=== PATIENT | male | born 1965 | race African-American/Black ===

== ENCOUNTER 2017-10-27 10:17 | Inpatient (IN) ==
[2017-10-27] MEDS ORDERED: SODIUM CHLORIDE 0.9% 1,000 ML IV STA (10:38)
[2017-10-27] MEDS ORDERED: MEROPENEM 1,000 MG in SODIUM CHLORIDE 0.9% 100 ML IV STA (10:38)
[2017-10-27] MEDS ORDERED: MEROPENEM 1,000 MG VIAL IV ONE (11:29)
[2017-10-27 11:32] LABS: Basophils # 0.1 10*3/uL (0.0-0.2); Basophils % 1.2 % (0.0-0.8); Eosinophils # 1.1 10*3/uL (0.0-0.87); Eosinophils % 9.7 % (0.00-10.9); Hematocrit 37.1 VOL% (42.0-52.0); Hemoglobin 12.5 GM/DL (14.0-18.0); Immature Granulocytes % 1.7 %; Immature Granulocytes Absolute 0.19 #; Lymphocytes # 2.8 10*3/uL (1.4-4.0); Lymphocytes % 24.7 % (21.2-54.2); Mean Corpuscular HGB Conc 33.7 GM/DL (32-36); Mean Corpuscular Hemoglobin 28 PG (27-34); Mean Corpuscular Volume 83.6 FL (87-102); Mean Platelet Volume 8.8 FL (9.6-12.0); Monocytes % 8.6 % (1.7-12.7); Neutrophils # 6.1 10*3/uL (1.4-7.4); Neutrophils % 54.1 % (38.7-73.9); Platelet Count 490 T/CUMM (130-400); Red Blood Count 4.44 MC/CUMM (3.8-5.5); Red Cell Distribution Width 11.5 % (9.3-17.3); White Blood Count 11.3 T/CUMM (4-12)
[2017-10-27 11:42] LABS: INR 0.9; PT Patient Result 9.3 SECS; Partial Thromboplastin Time 25.9 SECS (0-40)
[2017-10-27 11:50] LABS: Alanine Aminotransferase 26 U/L (16-61); Albumin 2.6 G/DL (3.4-5.0); Alkaline Phosphatase 155 U/L (45-117); Aspartate Amino Transferase 16 U/L (0-37); Bilirubin,Total < 0.39 MG/DL (0.2-1.0); Blood Urea Nitrogen 23 MG/DL (7-18); Calcium 9.7 MG/DL (8.5-10.1); Glucose 343 MG/DL (74-106); Osmolality,Calculated 279.7 MOS/KG (273-304); Potassium 4.5 MMOL/L (3.5-5.1); Sodium 131 MMOL/L (136-145); Total Protein 8.8 G/DL (6.4-8.3)
[2017-10-27 11:54] LABS: Lactic Acid 1.2 MMOL/L (0.4-2.0)
[2017-10-27] MEDS: VANCOMYCIN INJ 1,750 MG in SODIUM CHLORIDE 0.9% 500 ML IV SCH ×2 (12:18→22:44)
[2017-10-27] MEDS ORDERED: ACETAMINOPHEN 325 MG TABLET PO PRN (12:31)
[2017-10-27] MEDS ORDERED: ONDANSETRON 4 MG/2 ML VIAL IV PRN (12:31)
[2017-10-27] MEDS ORDERED: hydrALAZINE 20 MG/1 ML VIAL IV PRN (12:35)
[2017-10-27 13:01] LABS: Apearance,Urine Clear (Clear); Ketones,Urine Negative (Negative); Nitrite,Urine Negative (Negative); Urine Color Yellow (Yellow); Urine Specific Gravity 1.005 (1.001-1.035)
[2017-10-27 13:02] LABS: Bilirubin,Urine Negative (Negative); Blood, Urine Moderate mg/dL (Negative); Glucose,Urine (UA) 150 mg/dL (Negative); Protein,Urine >=500 MG/DL; Urine Urobilinogen 0.2 EU/DL (0.2-1.0)
[2017-10-27 13:09] LABS: Squamous Epithelial Cell,Urine Few /HPF (0-10); WBC,Urine 0-5 /HPF (0-6)
[2017-10-27] MEDS: SODIUM CHLORIDE 0.9% 1,000 ML IV SCH (15:08)
[2017-10-27] MEDS ORDERED: GLUCAGON 1 MG VIAL IM PRN (15:46)
[2017-10-27] MEDS ORDERED: DEXTROSE 50% 25 GM/50 ML VIAL IV PRN (15:46)
[2017-10-27] MEDS ORDERED: traMADol 50 MG TABLET PO PRN (17:08)
[2017-10-27] MEDS: INSULIN LISPRO 100 UNIT/ML SUBCUT SCH (17:15)
[2017-10-27] MEDS: GABAPENTIN 400 MG CAPSULE PO SCH (22:11)
[2017-10-27] MEDS: MEROPENEM 1,000 MG in SYRINGE 1 EACH IV SCH (22:12)
[2017-10-28] MEDS: SODIUM CHLORIDE 0.9% 1,000 ML IV SCH ×3 (06:16→14:31)
[2017-10-28 06:57] LABS: Basophils # 0.1 10*3/uL (0.0-0.2); Basophils % 0.8 % (0.0-0.8); Eosinophils # 1.1 10*3/uL (0.0-0.87); Eosinophils % 10.8 % (0.00-10.9); Hematocrit 32.2 VOL% (42.0-52.0); Hemoglobin 10.7 GM/DL (14.0-18.0); Immature Granulocytes % 1.5 %; Immature Granulocytes Absolute 0.15 #; Lymphocytes # 2.7 10*3/uL (1.4-4.0); Lymphocytes % 27.4 % (21.2-54.2); Mean Corpuscular HGB Conc 33.2 GM/DL (32-36); Mean Corpuscular Hemoglobin 28 PG (27-34); Mean Corpuscular Volume 83.9 FL (87-102); Mean Platelet Volume 8.7 FL (9.6-12.0); Monocytes % 10.2 % (1.7-12.7); Neutrophils # 4.8 10*3/uL (1.4-7.4); Neutrophils % 49.3 % (38.7-73.9); Platelet Count 454 T/CUMM (130-400); Red Blood Count 3.84 MC/CUMM (3.8-5.5); Red Cell Distribution Width 11.7 % (9.3-17.3); White Blood Count 9.7 T/CUMM (4-12)
[2017-10-28 07:32] LABS: Calcium 8.6 MG/DL (8.5-10.1); Osmolality,Calculated 287.1 MOS/KG (273-304); Potassium 4.6 MMOL/L (3.5-5.1)
[2017-10-28] MEDS: INSULIN LISPRO 100 UNIT/ML SUBCUT SCH ×2 (07:45→16:46)
[2017-10-28] MEDS ORDERED: INSULIN LISPRO 100 UNIT/ML SUBCUT ONE ×2 (08:13→08:33)
[2017-10-28] MEDS: PANTOPRAZOLE 40 MG TABLET PO SCH (08:21)
[2017-10-28] MEDS: GABAPENTIN 400 MG CAPSULE PO SCH ×3 (08:21→21:48)
[2017-10-28] MEDS ORDERED: MIDAZOLAM 2 MG/2 ML VIAL ONE (09:39)
[2017-10-28] MEDS ORDERED: PROPOFOL 200 MG/20 ML VIAL IV ONE (09:39)
[2017-10-28] MEDS ORDERED: fentaNYL 100 MCG/2 ML VIAL ONE (09:39)
[2017-10-28] MEDS ORDERED: INSULIN REGULAR 100 UNIT/ML IV ONE (09:41)
[2017-10-28] MEDS ORDERED: INSULIN REGULAR 100 UNIT/ML ONE (09:50)
[2017-10-28] MEDS: MEROPENEM 1,000 MG in SYRINGE 1 EACH IV SCH ×2 (11:01→23:15)
[2017-10-28] MEDS: VANCOMYCIN INJ 1,750 MG in SODIUM CHLORIDE 0.9% 500 ML IV SCH (11:01)
[2017-10-28] MEDS ORDERED: MORPHINE 2 MG/1 ML SYRINGE IV PRN (11:22)
[2017-10-29] MEDS: INSULIN REGULAR 100 UNIT/ML SUBCUT SCH ×5 (00:47→22:02)
[2017-10-29] MEDS: VANCOMYCIN INJ 1,750 MG in SODIUM CHLORIDE 0.9% 500 ML IV SCH ×3 (08:02→14:35)
[2017-10-29] MEDS: SODIUM CHLORIDE 0.9% 1,000 ML IV SCH ×2 (08:02→14:40)
[2017-10-29] MEDS: GABAPENTIN 400 MG CAPSULE PO SCH ×3 (09:05→22:01)
[2017-10-29] MEDS: PANTOPRAZOLE 40 MG TABLET PO SCH (09:05)
[2017-10-29] MEDS ORDERED: SKIN HEALING OINT (AQUAPHOR) 50 GM TUBE TOP PRN (09:42)
[2017-10-29] MEDS ORDERED: CHLORHEXIDINE 4% SOLN 118 ML BOTTLE TOP ONE (09:48)
[2017-10-29] MEDS: BACITRACIN OINT 0.9 GM PACK TOP SCH (10:26)
[2017-10-29] MEDS: MEROPENEM 1,000 MG in SYRINGE 1 EACH IV SCH ×2 (11:47→14:35)
[2017-10-29] MEDS: INSULIN GLARGINE 100 UNIT/ML SUBCUT SCH (13:12)
[2017-10-29] MEDS: sitaGLIPtin 25 MG TABLET PO SCH (14:28)
[2017-10-29] MEDS ORDERED: glipiZIDE 5 MG TABLET PO SCH (16:30)
[2017-10-29] MEDS ORDERED: INSULIN GLARGINE 100 UNIT/ML SUBCUT SCH (21:00)
[2017-10-30] MEDS: SODIUM CHLORIDE 0.9% 1,000 ML IV SCH ×3 (01:20→20:36)
[2017-10-30] MEDS: MEROPENEM 1,000 MG in SYRINGE 1 EACH IV SCH ×2 (02:56→13:59)
[2017-10-30] MEDS: VANCOMYCIN INJ 1,750 MG in SODIUM CHLORIDE 0.9% 500 ML IV SCH ×2 (04:10→13:59)
[2017-10-30] MEDS: INSULIN REGULAR 100 UNIT/ML SUBCUT SCH ×4 (08:40→20:37)
[2017-10-30] MEDS: INSULIN GLARGINE 100 UNIT/ML SUBCUT SCH ×2 (08:40→20:37)
[2017-10-30] MEDS: PANTOPRAZOLE 40 MG TABLET PO SCH (08:58)
[2017-10-30] MEDS: GABAPENTIN 400 MG CAPSULE PO SCH ×3 (08:58→20:36)
[2017-10-30] MEDS: sitaGLIPtin 25 MG TABLET PO SCH (08:58)
[2017-10-30] MEDS: BACITRACIN OINT 0.9 GM PACK TOP SCH ×2 (10:00→12:38)
[2017-10-30] MEDS ORDERED: NIFEdipine 10 MG CAPSULE PO PRN (15:19)
[2017-10-30] MEDS: amLODIPine 10 MG TABLET PO SCH (16:34)
[2017-10-30] MEDS: VALSARTAN 80 MG TABLET PO SCH (16:34)
[2017-10-31] MEDS: MEROPENEM 1,000 MG in SYRINGE 1 EACH IV SCH ×2 (02:15→15:25)
[2017-10-31] MEDS: VANCOMYCIN INJ 1,750 MG in SODIUM CHLORIDE 0.9% 500 ML IV SCH ×2 (02:18→15:27)
[2017-10-31 05:24] LABS: Basophils # 0.1 10*3/uL (0.0-0.2); Basophils % 0.6 % (0.0-0.8); Eosinophils % 8.8 % (0.00-10.9); Hemoglobin 10.3 GM/DL (14.0-18.0); Immature Granulocytes % 1.8 %; Immature Granulocytes Absolute 0.21 #; Lymphocytes # 3.6 10*3/uL (1.4-4.0); Lymphocytes % 30.7 % (21.2-54.2); Mean Corpuscular HGB Conc 33.2 GM/DL (32-36); Mean Corpuscular Hemoglobin 28 PG (27-34); Mean Corpuscular Volume 84.7 FL (87-102); Mean Platelet Volume 8.8 FL (9.6-12.0); Monocytes # 1.1 10*3/uL (0.11-0.8); Monocytes % 9.7 % (1.7-12.7); Neutrophils # 5.7 10*3/uL (1.4-7.4); Neutrophils % 48.4 % (38.7-73.9); Platelet Count 453 T/CUMM (130-400); Red Blood Count 3.66 MC/CUMM (3.8-5.5); Red Cell Distribution Width 11.8 % (9.3-17.3); White Blood Count 11.7 T/CUMM (4-12)
[2017-10-31 05:59] LABS: Calcium 8.8 MG/DL (8.5-10.1); Osmolality,Calculated 284.8 MOS/KG (273-304); Potassium 4.6 MMOL/L (3.5-5.1)
[2017-10-31 06:00] LABS: Calcium 8.3 MG/DL (8.5-10.1); Magnesium 1.9 MG/DL (1.8-2.4); Osmolality,Calculated 286.7 MOS/KG (273-304); Potassium 4.6 MMOL/L (3.5-5.1)
[2017-10-31] MEDS: GABAPENTIN 400 MG CAPSULE PO SCH ×3 (08:59→20:29)
[2017-10-31] MEDS: PANTOPRAZOLE 40 MG TABLET PO SCH (08:59)
[2017-10-31] MEDS: VALSARTAN 80 MG TABLET PO SCH (08:59)
[2017-10-31] MEDS: amLODIPine 10 MG TABLET PO SCH (08:59)
[2017-10-31] MEDS: sitaGLIPtin 100 MG TABLET PO SCH (08:59)
[2017-10-31] MEDS: INSULIN GLARGINE 100 UNIT/ML SUBCUT SCH ×2 (09:00→20:30)
[2017-10-31] MEDS: INSULIN REGULAR 100 UNIT/ML SUBCUT SCH ×4 (09:00→20:30)
[2017-10-31] MEDS ORDERED: MAGNESIUM SULF RIDER 2 GM in PREMIX 1 EACH IV ONE (09:03)
[2017-10-31] MEDS: BACITRACIN OINT 0.9 GM PACK TOP SCH ×2 (09:03→15:31)
[2017-10-31] MEDS: LOPERAMIDE 2 MG CAPSULE PO PRN ×3 (11:23→19:31)
[2017-11-01] MEDS: MEROPENEM 1,000 MG in SYRINGE 1 EACH IV SCH ×2 (02:31→14:51)
[2017-11-01] MEDS: VANCOMYCIN INJ 1,750 MG in SODIUM CHLORIDE 0.9% 500 ML IV SCH ×2 (02:35→15:28)
[2017-11-01] MEDS: INSULIN REGULAR 100 UNIT/ML SUBCUT SCH ×4 (07:25→21:12)
[2017-11-01] MEDS: INSULIN GLARGINE 100 UNIT/ML SUBCUT SCH ×2 (09:30→21:12)
[2017-11-01] MEDS: GABAPENTIN 400 MG CAPSULE PO SCH ×3 (09:31→21:11)
[2017-11-01] MEDS: PANTOPRAZOLE 40 MG TABLET PO SCH (09:31)
[2017-11-01] MEDS: sitaGLIPtin 100 MG TABLET PO SCH (09:31)
[2017-11-01] MEDS: amLODIPine 10 MG TABLET PO SCH (09:35)
[2017-11-01] MEDS: VALSARTAN 80 MG TABLET PO SCH (09:35)
[2017-11-01] MEDS: BACITRACIN OINT 0.9 GM PACK TOP SCH ×2 (10:30→10:56)
[2017-11-01] MEDS: LOPERAMIDE 2 MG CAPSULE PO PRN ×2 (17:38→21:12)
[2017-11-02] MEDS: MEROPENEM 1,000 MG in SYRINGE 1 EACH IV SCH ×2 (01:33→14:56)
[2017-11-02 06:47] LABS: Calcium 8.4 MG/DL (8.5-10.1); Osmolality,Calculated 288.7 MOS/KG (273-304); Potassium 4.7 MMOL/L (3.5-5.1)
[2017-11-02] MEDS ORDERED: VANCOMYCIN INJ 1,750 MG in SODIUM CHLORIDE 0.9% 500 ML IV SCH (09:00)
[2017-11-02] MEDS: INSULIN REGULAR 100 UNIT/ML SUBCUT SCH ×3 (09:27→17:25)
[2017-11-02] MEDS: BACITRACIN OINT 0.9 GM PACK TOP SCH ×2 (09:28→09:29)
[2017-11-02] MEDS: amLODIPine 10 MG TABLET PO SCH (09:29)
[2017-11-02] MEDS: INSULIN GLARGINE 100 UNIT/ML SUBCUT SCH (09:29)
[2017-11-02] MEDS: VALSARTAN 80 MG TABLET PO SCH (09:29)
[2017-11-02] MEDS: GABAPENTIN 400 MG CAPSULE PO SCH ×2 (09:29→14:56)
[2017-11-02] MEDS: PANTOPRAZOLE 40 MG TABLET PO SCH (09:29)
[2017-11-02] MEDS: sitaGLIPtin 100 MG TABLET PO SCH (09:29)
[2017-11-02 17:09] VITALS: BP 116/66
[2017-11-03] MEDS ORDERED: DALBAVANCIN 1,500 MG in DEXTROSE 5% 500 ML IV ONE (10:48)
== END 2017-11-02 19:30 | disposition home or self-care (01) | DRG 264 ==
LOC: N.ED 10:17 → N.EDINP 11:38 → SUATTDRO 11:38 → N.EDINP 13:30 → N.5E 14:27
PROVIDERS: ADMIT Internal Medicine; ATTEND Internal Medicine

== ENCOUNTER 2018-01-16 10:17 | Observation (INO) ==
[2018-01-16] MEDS ORDERED: SODIUM CHLORIDE 0.9% 2,000 ML IV STA (10:30)
[2018-01-16 10:56] LABS: Basophils # 0.1 10*3/uL (0.0-0.2); Basophils % 0.2 % (0.0-0.8); Eosinophils # 0.4 10*3/uL (0.0-0.87); Eosinophils % 1.8 % (0.00-10.9); Hematocrit 35.9 VOL% (42.0-52.0); Hemoglobin 11.9 GM/DL (14.0-18.0); Immature Granulocytes % 0.5 %; Lymphocytes # 1.6 10*3/uL (1.4-4.0); Lymphocytes % 7.5 % (21.2-54.2); Mean Corpuscular HGB Conc 33.1 GM/DL (32-36); Mean Corpuscular Hemoglobin 28 PG (27-34); Mean Corpuscular Volume 85.7 FL (87-102); Monocytes # 2.2 10*3/uL (0.11-0.8); Monocytes % 9.9 % (1.7-12.7); Neutrophils # 17.6 10*3/uL (1.4-7.4); Neutrophils % 80.1 % (38.7-73.9); Platelet Count 363 T/CUMM (130-400); Red Blood Count 4.19 MC/CUMM (3.8-5.5); Red Cell Distribution Width 13.2 % (9.3-17.3)
[2018-01-16 11:34] LABS: Alanine Aminotransferase 30 U/L (16-61); Alkaline Phosphatase 171 U/L (45-117); Aspartate Amino Transferase 17 U/L (0-37); Bilirubin,Total < 0.39 MG/DL (0.2-1.0); Blood Urea Nitrogen 28 MG/DL (7-18); Calcium 8.5 MG/DL (8.5-10.1); Glucose 167 MG/DL (74-106); Osmolality,Calculated 290.3 MOS/KG (273-304); Potassium 4.2 MMOL/L (3.5-5.1); Sodium 141 MMOL/L (136-145); Total Protein 7.8 G/DL (6.4-8.3)
[2018-01-16 11:37] LABS: Band Neutrophils 5 % (0-10); Eosinophils 3 % (0-10); Giant Platelets Few; Hypochromasia 1+; Lymphocytes 7 % (20-55); Ovalocytes Slight; Platelet Estimate Adequate; Segmented Neutrophils 77 % (50-85); Total Cells Counted 100
[2018-01-16 11:45] LABS: ABG Base Excess -8.1 MMOL/L (-2.5-2.5); ABG HCO3 17.9 MMOL/L (20-26); ABG Oxygen Saturation 99.2 % (95-100); ABG PCO2 33.7 MM HG (35-48); ABG PH 7.317 (7.35-7.45); ABG TCO2 15.7 MMOL/L (23-27); Allen Test Positive
[2018-01-16 12:18] LABS: Barbiturates Screen,Urine Negative (Negative); Benzodiazepines Screen,Urine Negative (Negative); Cannabinoid Screen,Urine Negative (Negative); Opiate Screen,Urine Positive (Negative); Phencyclidine Screen,Urine Negative (Negative)
[2018-01-16 12:21] LABS: Apearance,Urine Clear (Clear); Bilirubin,Urine Negative (Negative); Blood, Urine Trace mg/dL (Negative); Glucose,Urine (UA) Negative (Negative); Ketones,Urine Negative (Negative); Nitrite,Urine Negative (Negative); Protein,Urine 100 MG/DL; RBC,Urine 0-1 /HPF (0-4); Urine Color Straw (Yellow); Urine Specific Gravity 1.015 (1.001-1.035); Urine Urobilinogen 0.2 EU/DL (0.2-1.0)
[2018-01-16 12:22] LABS: Squamous Epithelial Cell,Urine Occasional /HPF (0-10)
[2018-01-16] MEDS ORDERED: GLUCAGON 1 MG VIAL IM PRN (15:10)
[2018-01-16] MEDS ORDERED: DEXTROSE 50% 25 GM/50 ML VIAL IV PRN (15:10)
[2018-01-16] MEDS ORDERED: ACETAMINOPHEN 325 MG TABLET PO PRN (15:21)
[2018-01-16] MEDS ORDERED: ONDANSETRON 4 MG/2 ML VIAL IV PRN (15:21)
[2018-01-16] MEDS: INSULIN LISPRO 100 UNIT/ML SUBCUT SCH ×2 (15:34→20:58)
[2018-01-16] MEDS: SODIUM CHLORIDE 0.9% 1,000 ML IV SCH (16:18)
[2018-01-16] MEDS ORDERED: ENOXAPARIN 40 MG/0.4 ML SYRINGE SUBCUT SCH (21:00)
[2018-01-17] MEDS: SODIUM CHLORIDE 0.9% 1,000 ML IV SCH ×3 (01:28→07:50)
[2018-01-17 07:00] LABS: Basophils # 0.1 10*3/uL (0.0-0.2); Basophils % 0.5 % (0.0-0.8); Eosinophils # 0.7 10*3/uL (0.0-0.87); Eosinophils % 6.6 % (0.00-10.9); Hematocrit 31.3 VOL% (42.0-52.0); Hemoglobin 10.3 GM/DL (14.0-18.0); Immature Granulocytes % 0.5 %; Immature Granulocytes Absolute 0.05 #; Lymphocytes # 3.7 10*3/uL (1.4-4.0); Lymphocytes % 33.9 % (21.2-54.2); Mean Corpuscular HGB Conc 32.9 GM/DL (32-36); Mean Corpuscular Hemoglobin 28 PG (27-34); Mean Corpuscular Volume 85.5 FL (87-102); Mean Platelet Volume 9.5 FL (9.6-12.0); Monocytes # 1.1 10*3/uL (0.11-0.8); Monocytes % 10.1 % (1.7-12.7); Neutrophils # 5.3 10*3/uL (1.4-7.4); Neutrophils % 48.4 % (38.7-73.9); Platelet Count 360 T/CUMM (130-400); Red Blood Count 3.66 MC/CUMM (3.8-5.5); Red Cell Distribution Width 13.3 % (9.3-17.3); White Blood Count 10.9 T/CUMM (4-12)
[2018-01-17 07:32] LABS: Calcium 7.9 MG/DL (8.5-10.1); Osmolality,Calculated 281.4 MOS/KG (273-304); Potassium 4.1 MMOL/L (3.5-5.1); Thyroid Stimulating Hormone 1.29 uIU/ml (0.358-3.74)
[2018-01-17] MEDS: INSULIN LISPRO 100 UNIT/ML SUBCUT SCH (07:49)
[2018-01-17] MEDS ORDERED: amLODIPine 10 MG TABLET PO SCH (09:00)
[2018-01-17] MEDS ORDERED: PANTOPRAZOLE 40 MG TABLET PO SCH (09:00)
[2018-01-17] MEDS ORDERED: VALSARTAN 80 MG TABLET PO SCH (09:00)
[2018-01-17] MEDS ORDERED: hydroCHLOROthiazide 12.5 MG CAPSULE PO SCH (09:00)
[2018-01-17 09:41] VITALS: BP 134/97
== END 2018-01-17 11:08 | disposition home or self-care (01) ==
LOC: EDBD → EDUNIT# → N.ED 10:17 → N.EDINP 10:17 → N.5E 14:45
PROVIDERS: ADMIT Internal Medicine; ATTEND Internal Medicine

== ENCOUNTER 2018-05-03 11:39 | Observation (INO) ==
[2018-05-03 13:23] LABS: Basophils # 0.1 10*3/uL (0.0-0.2); Basophils % 0.5 % (0.0-0.8); Eosinophils # 0.4 10*3/uL (0.0-0.87); Eosinophils % 3.4 % (0.00-10.9); Hematocrit 34.1 VOL% (42.0-52.0); Hemoglobin 11.7 GM/DL (14.0-18.0); Immature Granulocytes % 0.5 %; Immature Granulocytes Absolute 0.07 #; Lymphocytes # 2.3 10*3/uL (1.4-4.0); Lymphocytes % 17.8 % (21.2-54.2); Mean Corpuscular HGB Conc 34.3 GM/DL (32-36); Mean Corpuscular Hemoglobin 28 PG (27-34); Mean Corpuscular Volume 82.8 FL (87-102); Mean Platelet Volume 9.6 FL (9.6-12.0); Monocytes # 1.2 10*3/uL (0.11-0.8); Monocytes % 9.2 % (1.7-12.7); Neutrophils # 8.8 10*3/uL (1.4-7.4); Neutrophils % 68.6 % (38.7-73.9); Platelet Count 328 T/CUMM (130-400); Red Blood Count 4.12 MC/CUMM (3.8-5.5); Red Cell Distribution Width 11.7 % (9.3-17.3); White Blood Count 12.8 T/CUMM (4-12)
[2018-05-03 13:38] LABS: Alanine Aminotransferase 30 U/L (16-61); Albumin 2.7 G/DL (3.4-5.0); Alkaline Phosphatase 164 U/L (45-117); Aspartate Amino Transferase 12 U/L (0-37); Bilirubin,Total < 0.39 MG/DL (0.2-1.0); Blood Urea Nitrogen 30 MG/DL (7-18); Calcium 8.8 MG/DL (8.5-10.1); Osmolality,Calculated 286.4 MOS/KG (273-304); Potassium 4.8 MMOL/L (3.5-5.1); Sodium 126 MMOL/L (136-145); Total Protein 7.3 G/DL (6.4-8.3)
[2018-05-03 13:40] LABS: Glucose 598 MG/DL (74-106)
[2018-05-03] MEDS ORDERED: DIPH/TET/ACEL PERT BOOSTER VACCINE 0.5 ML VIAL IM ONE (13:43)
[2018-05-03] MEDS ORDERED: CEFTAROLINE 600 MG in SODIUM CHLORIDE 0.9% 100 ML IV STA (13:43)
[2018-05-03] MEDS ORDERED: INSULIN REGULAR 100 UNIT/ML SUBCUT STA (15:00)
[2018-05-03] MEDS ORDERED: GLUCAGON 1 MG VIAL IM PRN (15:05)
[2018-05-03] MEDS ORDERED: diphenhydrAMINE CAP 25 MG CAPSULE PO PRN (15:05)
[2018-05-03] MEDS ORDERED: DOCUSATE SODIUM 100 MG CAPSULE PO PRN (15:05)
[2018-05-03] MEDS ORDERED: ACETAMINOPHEN 325 MG TABLET PO PRN (15:05)
[2018-05-03] MEDS ORDERED: DEXTROSE 50% 25 GM/50 ML VIAL IV PRN (15:05)
[2018-05-03] MEDS ORDERED: ONDANSETRON 4 MG/2 ML VIAL IV PRN (15:05)
[2018-05-03] MEDS ORDERED: SODIUM CHLORIDE 0.9% 1,000 ML IV ONE (15:19)
[2018-05-03] MEDS: PANTOPRAZOLE 40 MG TABLET PO SCH (16:15)
[2018-05-03] MEDS: SODIUM CHLORIDE 0.9% 1,000 ML IV SCH ×2 (17:00→19:50)
[2018-05-03] MEDS: INSULIN REGULAR 100 UNIT/ML SUBCUT SCH (18:32)
[2018-05-03] MEDS: hydrALAZINE 25 MG TABLET PO SCH (21:40)
[2018-05-03] MEDS: GABAPENTIN 400 MG CAPSULE PO SCH (21:41)
[2018-05-03] MEDS ORDERED: INSULIN GLARGINE 100 UNIT/ML SUBCUT SCH (22:00)
[2018-05-04] MEDS: SODIUM CHLORIDE 0.9% 1,000 ML IV SCH ×2 (01:17→18:09)
[2018-05-04 06:23] LABS: Basophils # 0.1 10*3/uL (0.0-0.2); Basophils % 0.7 % (0.0-0.8); Eosinophils # 0.6 10*3/uL (0.0-0.87); Hematocrit 29.9 VOL% (42.0-52.0); Hemoglobin 10.1 GM/DL (14.0-18.0); Immature Granulocytes % 0.6 %; Immature Granulocytes Absolute 0.06 #; Lymphocytes % 30.1 % (21.2-54.2); Mean Corpuscular HGB Conc 33.8 GM/DL (32-36); Mean Corpuscular Hemoglobin 28 PG (27-34); Mean Corpuscular Volume 83.1 FL (87-102); Mean Platelet Volume 9.9 FL (9.6-12.0); Monocytes % 10.3 % (1.7-12.7); Neutrophils # 5.2 10*3/uL (1.4-7.4); Neutrophils % 52.3 % (38.7-73.9); Platelet Count 288 T/CUMM (130-400); Red Cell Distribution Width 11.9 % (9.3-17.3)
[2018-05-04 06:57] LABS: Calcium 8.5 MG/DL (8.5-10.1); Osmolality,Calculated 285.1 MOS/KG (273-304); Potassium 4.4 MMOL/L (3.5-5.1); Risk Ratio 3.96; Thyroid Stimulating Hormone 5.55 uIU/ml (0.358-3.74); VLDL CHOLESTEROL 33.6 MG/DL
[2018-05-04] MEDS: INSULIN REGULAR 100 UNIT/ML SUBCUT SCH ×2 (08:32→18:09)
[2018-05-04] MEDS ORDERED: OMEGA 3 ACID ETHYL ESTERS 1 GM CAPSULE PO SCH (09:00)
[2018-05-04] MEDS ORDERED: ROSUVASTATIN 20 MG TABLET PO SCH (09:00)
[2018-05-04] MEDS: hydrALAZINE 25 MG TABLET PO SCH (10:16)
[2018-05-04] MEDS ORDERED: SKIN HEALING OINT (AQUAPHOR) 50 GM TUBE TOP PRN (12:28)
[2018-05-04 12:33] VITALS: BP 131/86
[2018-05-04] MEDS: PANTOPRAZOLE 40 MG TABLET PO SCH (18:07)
[2018-05-04] MEDS: GABAPENTIN 400 MG CAPSULE PO SCH (18:07)
== END 2018-05-04 17:40 | disposition home or self-care (01) ==
LOC: N.ED 11:39 → N.EDINP 11:39 → N.3E 16:40
PROVIDERS: ADMIT Internal Medicine; ATTEND Internal Medicine

== ENCOUNTER 2019-05-20 20:28 | Inpatient (IN) ==
[2019-05-20] MEDS ORDERED: SODIUM CHLORIDE 0.9% 1,000 ML IV STA ×2 (21:45→23:29)
[2019-05-20] MEDS ORDERED: INSULIN REGULAR 100 UNIT/ML IV STA (21:47)
[2019-05-20 22:17] LABS: VBG Base Excess 1.9 MEQ/L (0-4); VBG HCO3 25.9 MEQ/L (24-28); VBG Oxygen Saturation 87.4 %; VBG PCO2 40.2 MMHG (41-51); VBG PH 7.425; VBG PO2 49.8 MMHG (17-40)
[2019-05-20 22:21] LABS: Basophils # 0.1 10*3/uL (0.0-0.2); Basophils % 0.5 % (0.0-0.8); Eosinophils # 0.6 10*3/uL (0.0-0.87); Eosinophils % 2.5 % (0.00-10.9); Immature Granulocytes % 1.8 %; Lymphocytes # 5.1 10*3/uL (1.4-4.0); Lymphocytes % 22.9 % (21.2-54.2); Mean Corpuscular HGB Conc 34.1 GM/DL (32-36); Mean Corpuscular Volume 83.2 FL (87-102); Mean Platelet Volume 9.3 FL (9.6-12.0); Neutrophils % 63.3 % (38.7-73.9); Platelet Count 590 T/CUMM (130-400); Red Blood Count 1.97 MC/CUMM (3.8-5.5); Red Cell Distribution Width 11.9 % (9.3-17.3); White Blood Count 22.5 T/CUMM (4-12)
[2019-05-20 22:26] LABS: Hematocrit 16.4 VOL% (42.0-52.0); Hemoglobin 5.6 GM/DL (14.0-18.0)
[2019-05-20 22:36] LABS: Alanine Aminotransferase 15 U/L (16-61); Albumin 1.9 G/DL (3.4-5.0); Alkaline Phosphatase 157 U/L (45-117); Aspartate Amino Transferase 12 U/L (0-37); Bilirubin,Total < 0.39 MG/DL (0.2-1.0); Blood Urea Nitrogen 35 MG/DL (7-18); Calcium 8.8 MG/DL (8.5-10.1); Estimated Glom Filtration Rate 35 ML/MIN; Glucose 411 MG/DL (74-106); Osmolality,Calculated 290.4 MOS/KG (273-304); Total Protein 6.8 G/DL (6.4-8.3)
[2019-05-20] MEDS ORDERED: SODIUM CHLORIDE 0.9% 1,000 ML IV PRN (22:40)
[2019-05-20 23:34] LABS: Hypochromasia Slight; Lymphocytes 17 % (20-55); Microcytosis 1+; Segmented Neutrophils 75 % (50-85); Total Cells Counted 100
[2019-05-20 23:35] LABS: Platelet Estimate Increased
[2019-05-21] MEDS ORDERED: ONDANSETRON 4 MG/2 ML VIAL IV PRN (02:50)
[2019-05-21] MEDS: SODIUM CHLORIDE 0.9% 1,000 ML IV SCH ×3 (02:56→13:50)
[2019-05-21] MEDS: PANTOPRAZOLE INJ 200 MG in SODIUM CHLORIDE 0.9% 250 ML IV SCH (03:22)
[2019-05-21 03:39] LABS: Basophils # 0.1 10*3/uL (0.0-0.2); Basophils % 0.6 % (0.0-0.8); Eosinophils # 0.2 10*3/uL (0.0-0.87); Eosinophils % 1.5 % (0.00-10.9); Hematocrit 33.9 VOL% (42.0-52.0); Hemoglobin 11.4 GM/DL (14.0-18.0); Immature Granulocytes % 1.7 %; Immature Granulocytes Absolute 0.26 #; Lymphocytes # 3.2 10*3/uL (1.4-4.0); Lymphocytes % 21.7 % (21.2-54.2); Mean Corpuscular HGB Conc 33.6 GM/DL (32-36); Mean Corpuscular Volume 82.9 FL (87-102); Mean Platelet Volume 9.3 FL (9.6-12.0); Monocytes % 8.5 % (1.7-12.7); Platelet Count 424 T/CUMM (130-400); Red Blood Count 4.09 MC/CUMM (3.8-5.5); Red Cell Distribution Width 12.1 % (9.3-17.3); White Blood Count 14.9 T/CUMM (4-12)
[2019-05-21 03:53] LABS: INR 0.9; PT Patient Result 9.6 SECS (9.6-12.2); Partial Thromboplastin Time 24.3 SECS (20.8-36.0)
[2019-05-21 03:55] LABS: Amorphous Crystals,Urine Occasional /HPF (Few); Apearance,Urine Slightly Hazy (Clear); Bilirubin,Urine Negative (Negative); Blood, Urine Small mg/dL (Negative); Glucose,Urine (UA) >=500 mg/dL (Negative); Hyaline Casts,Urine 23 /LPF (0-3); Ketones,Urine Negative (Negative); Mucus,Urine Occasional /LPF (Occasional); Nitrite,Urine Negative (Negative); Protein,Urine >=500 MG/DL; RBC,Urine 3 /HPF (0-4); Squamous Epithelial Cell,Urine Occasional /HPF (0-10); Urine Color Yellow (Yellow); Urine Specific Gravity 1.016 (1.001-1.035); Urine Urobilinogen < 2.0 EU/DL (0.2-1.0); WBC,Urine 6 /HPF (0-6)
[2019-05-21 03:56] LABS: Calcium 8.8 MG/DL (8.5-10.1)
[2019-05-21] MEDS ORDERED: GLUCAGON 1 MG VIAL IM PRN (03:57)
[2019-05-21] MEDS ORDERED: DEXTROSE 50% 25 GM/50 ML VIAL IV PRN (03:57)
[2019-05-21] MEDS ORDERED: CEFTAROLINE 400 MG in SODIUM CHLORIDE 0.9% 100 ML IV SCH ×2 (05:00→05:30)
[2019-05-21] MEDS: PIPERACILLIN/TAZOBACTAM 3,375 MG in SODIUM CHLORIDE 0.9% 100 ML IV SCH ×3 (05:53→22:12)
[2019-05-21] MEDS: INSULIN GLARGINE 100 UNIT/ML SUBCUT SCH ×2 (08:32→22:04)
[2019-05-21] MEDS: INSULIN REGULAR 100 UNIT/ML SUBCUT SCH ×4 (08:32→22:06)
[2019-05-21 08:52] LABS: Hematocrit 32.5 VOL% (42.0-52.0)
[2019-05-21] MEDS: POLYETHYLENE GLYCOL POWDER 17 GM PACK PO SCH ×2 (09:23→21:57)
[2019-05-21] MEDS: sitaGLIPtin 25 MG TABLET PO SCH (09:23)
[2019-05-21] MEDS ORDERED: VANCOMYCIN INJ 1,750 MG in SODIUM CHLORIDE 0.9% 500 ML IV SCH (10:00)
[2019-05-21] MEDS: hydrALAZINE 25 MG TABLET PO SCH ×2 (11:39→21:57)
[2019-05-21] MEDS: GABAPENTIN 600 MG TABLET PO SCH ×2 (11:39→21:57)
[2019-05-21] MEDS: amLODIPine 5 MG TABLET PO SCH (11:39)
[2019-05-21 14:44] LABS: Hematocrit 31.9 VOL% (42.0-52.0); Hemoglobin 10.6 GM/DL (14.0-18.0)
[2019-05-21 20:27] LABS: Hematocrit 31.7 VOL% (42.0-52.0); Hemoglobin 10.5 GM/DL (14.0-18.0)
[2019-05-22 05:31] LABS: Basophils # 0.1 10*3/uL (0.0-0.2); Basophils % 0.6 % (0.0-0.8); Eosinophils # 0.5 10*3/uL (0.0-0.87); Eosinophils % 3.8 % (0.00-10.9); Hematocrit 31.5 VOL% (42.0-52.0); Hemoglobin 10.2 GM/DL (14.0-18.0); Immature Granulocytes % 1.4 %; Immature Granulocytes Absolute 0.19 #; Lymphocytes # 2.9 10*3/uL (1.4-4.0); Lymphocytes % 20.8 % (21.2-54.2); Mean Corpuscular HGB Conc 32.4 GM/DL (32-36); Mean Corpuscular Volume 85.8 FL (87-102); Mean Platelet Volume 9.9 FL (9.6-12.0); Monocytes % 11.1 % (1.7-12.7); Neutrophils % 62.3 % (38.7-73.9); Platelet Count 366 T/CUMM (130-400); Red Blood Count 3.67 MC/CUMM (3.8-5.5); Red Cell Distribution Width 12.4 % (9.3-17.3); White Blood Count 13.7 T/CUMM (4-12)
[2019-05-22] MEDS: PIPERACILLIN/TAZOBACTAM 3,375 MG in SODIUM CHLORIDE 0.9% 100 ML IV SCH ×3 (05:49→21:28)
[2019-05-22] MEDS: SODIUM CHLORIDE 0.9% 1,000 ML IV SCH ×3 (05:50→12:03)
[2019-05-22 05:51] LABS: Calcium 7.7 MG/DL (8.5-10.1)
[2019-05-22] MEDS: INSULIN REGULAR 100 UNIT/ML SUBCUT SCH ×4 (09:00→21:30)
[2019-05-22] MEDS: INSULIN GLARGINE 100 UNIT/ML SUBCUT SCH ×2 (09:00→21:29)
[2019-05-22] MEDS: PANTOPRAZOLE INJ 200 MG in SODIUM CHLORIDE 0.9% 250 ML IV SCH (09:01)
[2019-05-22] MEDS: OMEGA 3 ACID ETHYL ESTERS 1 GM CAPSULE PO SCH (09:02)
[2019-05-22] MEDS: hydrALAZINE 25 MG TABLET PO SCH ×2 (09:02→21:29)
[2019-05-22] MEDS: amLODIPine 5 MG TABLET PO SCH (09:02)
[2019-05-22] MEDS: sitaGLIPtin 25 MG TABLET PO SCH (09:02)
[2019-05-22] MEDS: GABAPENTIN 600 MG TABLET PO SCH ×2 (09:02→21:29)
[2019-05-22] MEDS: ROSUVASTATIN 20 MG TABLET PO SCH (09:02)
[2019-05-22] MEDS: POLYETHYLENE GLYCOL POWDER 17 GM PACK PO SCH ×2 (09:02→22:38)
[2019-05-22] MEDS: ACETAMINOPHEN 325 MG TABLET PO PRN (21:29)
[2019-05-23] MEDS: SODIUM CHLORIDE 0.9% 1,000 ML IV SCH (04:31)
[2019-05-23] MEDS: PIPERACILLIN/TAZOBACTAM 3,375 MG in SODIUM CHLORIDE 0.9% 100 ML IV SCH ×3 (04:41→21:57)
[2019-05-23 05:45] LABS: Basophils # 0.1 10*3/uL (0.0-0.2); Basophils % 0.8 % (0.0-0.8); Eosinophils # 0.5 10*3/uL (0.0-0.87); Eosinophils % 5.1 % (0.00-10.9); Hematocrit 31.2 VOL% (42.0-52.0); Immature Granulocytes % 1.4 %; Immature Granulocytes Absolute 0.14 #; Lymphocytes # 2.7 10*3/uL (1.4-4.0); Mean Corpuscular HGB Conc 32.1 GM/DL (32-36); Mean Corpuscular Volume 87.6 FL (87-102); Mean Platelet Volume 9.6 FL (9.6-12.0); Monocytes % 12.2 % (1.7-12.7); Neutrophils % 54.5 % (38.7-73.9); Platelet Count 344 T/CUMM (130-400); Red Blood Count 3.56 MC/CUMM (3.8-5.5); Red Cell Distribution Width 12.2 % (9.3-17.3); White Blood Count 10.2 T/CUMM (4-12)
[2019-05-23 06:01] LABS: Calcium 7.7 MG/DL (8.5-10.1); Osmolality,Calculated 285.7 MOS/KG (273-304)
[2019-05-23] MEDS: GABAPENTIN 600 MG TABLET PO SCH (08:46)
[2019-05-23] MEDS: hydrALAZINE 25 MG TABLET PO SCH ×2 (08:46→21:52)
[2019-05-23] MEDS: sitaGLIPtin 25 MG TABLET PO SCH (08:46)
[2019-05-23] MEDS: ROSUVASTATIN 20 MG TABLET PO SCH (08:46)
[2019-05-23] MEDS: OMEGA 3 ACID ETHYL ESTERS 1 GM CAPSULE PO SCH (08:46)
[2019-05-23] MEDS: INSULIN GLARGINE 100 UNIT/ML SUBCUT SCH ×2 (08:47→23:52)
[2019-05-23] MEDS: amLODIPine 5 MG TABLET PO SCH (08:47)
[2019-05-23] MEDS: INSULIN REGULAR 100 UNIT/ML SUBCUT SCH ×4 (08:48→21:59)
[2019-05-23] MEDS: LINACLOTIDE 145 MCG CAPSULE PO SCH (08:51)
[2019-05-23] MEDS: PANTOPRAZOLE INJ 200 MG in SODIUM CHLORIDE 0.9% 250 ML IV SCH (14:03)
[2019-05-23] MEDS: PANTOPRAZOLE 40 MG VIAL IV SCH (21:52)
[2019-05-24] MEDS: PIPERACILLIN/TAZOBACTAM 3,375 MG in SODIUM CHLORIDE 0.9% 100 ML IV SCH ×3 (06:18→21:46)
[2019-05-24 07:41] LABS: Basophils # 0.1 10*3/uL (0.0-0.2); Basophils % 0.5 % (0.0-0.8); Eosinophils # 0.5 10*3/uL (0.0-0.87); Eosinophils % 4.2 % (0.00-10.9); Hematocrit 33.6 VOL% (42.0-52.0); Hemoglobin 10.9 GM/DL (14.0-18.0); Immature Granulocytes % 1.2 %; Immature Granulocytes Absolute 0.13 #; Lymphocytes # 2.5 10*3/uL (1.4-4.0); Mean Corpuscular HGB Conc 32.4 GM/DL (32-36); Mean Corpuscular Volume 87.3 FL (87-102); Mean Platelet Volume 8.6 FL (9.6-12.0); Monocytes % 12.1 % (1.7-12.7); Platelet Count 348 T/CUMM (130-400); Red Blood Count 3.85 MC/CUMM (3.8-5.5); Red Cell Distribution Width 12.1 % (9.3-17.3)
[2019-05-24] MEDS: INSULIN REGULAR 100 UNIT/ML SUBCUT SCH ×4 (08:05→21:48)
[2019-05-24 08:07] LABS: Calcium 7.9 MG/DL (8.5-10.1); Osmolality,Calculated 293.8 MOS/KG (273-304)
[2019-05-24] MEDS: INSULIN GLARGINE 100 UNIT/ML SUBCUT SCH ×2 (08:22→21:48)
[2019-05-24] MEDS: LINACLOTIDE 145 MCG CAPSULE PO SCH (08:23)
[2019-05-24] MEDS: OMEGA 3 ACID ETHYL ESTERS 1 GM CAPSULE PO SCH (08:23)
[2019-05-24] MEDS: GABAPENTIN 600 MG TABLET PO SCH (08:23)
[2019-05-24] MEDS: amLODIPine 5 MG TABLET PO SCH (08:23)
[2019-05-24] MEDS: PANTOPRAZOLE 40 MG VIAL IV SCH ×2 (08:23→21:48)
[2019-05-24] MEDS: ROSUVASTATIN 20 MG TABLET PO SCH (08:23)
[2019-05-24] MEDS: hydrALAZINE 25 MG TABLET PO SCH ×2 (08:23→21:48)
[2019-05-24] MEDS ORDERED: MAGNESIUM CITRATE 300 ML BOTTLE PO ONE (12:04)
[2019-05-24] MEDS: ACETAMINOPHEN 325 MG TABLET PO PRN (12:34)
[2019-05-25 05:29] LABS: Basophils # 0.1 10*3/uL (0.0-0.2); Basophils % 0.8 % (0.0-0.8); Eosinophils # 0.6 10*3/uL (0.0-0.87); Eosinophils % 5.7 % (0.00-10.9); Hematocrit 32.4 VOL% (42.0-52.0); Hemoglobin 10.5 GM/DL (14.0-18.0); Immature Granulocytes % 1.1 %; Immature Granulocytes Absolute 0.11 #; Lymphocytes # 2.2 10*3/uL (1.4-4.0); Mean Corpuscular HGB Conc 32.4 GM/DL (32-36); Mean Corpuscular Volume 87.8 FL (87-102); Mean Platelet Volume 9.2 FL (9.6-12.0); Monocytes % 13.6 % (1.7-12.7); Neutrophils % 56.8 % (38.7-73.9); Platelet Count 387 T/CUMM (130-400); Red Blood Count 3.69 MC/CUMM (3.8-5.5); Red Cell Distribution Width 12.2 % (9.3-17.3); White Blood Count 10.1 T/CUMM (4-12)
[2019-05-25 06:02] LABS: Calcium 8.5 MG/DL (8.5-10.1); Osmolality,Calculated 293.7 MOS/KG (273-304)
[2019-05-25] MEDS: PIPERACILLIN/TAZOBACTAM 3,375 MG in SODIUM CHLORIDE 0.9% 100 ML IV SCH ×2 (06:14→19:05)
[2019-05-25] MEDS ORDERED: POLYETHYLENE GLYCOL POWDER 17 GM PACK PO SCH (09:00)
[2019-05-25] MEDS: PANTOPRAZOLE 40 MG VIAL IV SCH (09:52)
[2019-05-25] MEDS: LINACLOTIDE 145 MCG CAPSULE PO SCH (09:52)
[2019-05-25] MEDS: ROSUVASTATIN 20 MG TABLET PO SCH (09:53)
[2019-05-25] MEDS: OMEGA 3 ACID ETHYL ESTERS 1 GM CAPSULE PO SCH (09:53)
[2019-05-25] MEDS: GABAPENTIN 600 MG TABLET PO SCH (09:54)
[2019-05-25] MEDS: amLODIPine 5 MG TABLET PO SCH (09:54)
[2019-05-25] MEDS: hydrALAZINE 25 MG TABLET PO SCH (09:54)
[2019-05-25] MEDS: INSULIN GLARGINE 100 UNIT/ML SUBCUT SCH (09:55)
[2019-05-25] MEDS: INSULIN REGULAR 100 UNIT/ML SUBCUT SCH ×3 (12:19→17:38)
[2019-05-25] MEDS ORDERED: BACITRACIN OINT 0.9 GM PACK TOP SCH (15:00)
[2019-05-25] MEDS ORDERED: PANTOPRAZOLE 40 MG TABLET PO SCH (16:30)
[2019-05-25] MEDS ORDERED: amLODIPine 10 MG TABLET PO ONE (17:38)
[2019-05-25 19:44] VITALS: BP 158/71
== END 2019-05-25 20:03 | disposition home or self-care (01) | DRG 811 ==
LOC: N.ED 20:28 → SUATTDRO 05-21 01:49 → N.EDINP 05-21 01:49 → N.ICU 05-21 02:24 → N.5E 05-21 15:45
PROVIDERS: ADMIT Family Medicine; ATTEND Internal Medicine

== ENCOUNTER 2019-05-30 12:53 | Inpatient (IN) ==
[2019-05-30] MEDS ORDERED: ONDANSETRON 4 MG/2 ML VIAL IV ONE (13:20)
[2019-05-30] MEDS ORDERED: SODIUM CHLORIDE 0.9% 1,000 ML IV STA (13:20)
[2019-05-30 14:45] LABS: Basophils % 0.2 % (0.0-0.8); Eosinophils # 0.3 10*3/uL (0.0-0.87); Eosinophils % 1.5 % (0.00-10.9); Hematocrit 35.5 VOL% (42.0-52.0); Hemoglobin 11.6 GM/DL (14.0-18.0); Immature Granulocytes % 0.7 %; Immature Granulocytes Absolute 0.13 #; Lymphocytes # 1.3 10*3/uL (1.4-4.0); Lymphocytes % 7.3 % (21.2-54.2); Mean Corpuscular HGB Conc 32.7 GM/DL (32-36); Mean Corpuscular Volume 84.7 FL (87-102); Mean Platelet Volume 8.3 FL (9.6-12.0); Monocytes % 8.2 % (1.7-12.7); Neutrophils % 82.1 % (38.7-73.9); Platelet Count 452 T/CUMM (130-400); Red Blood Count 4.19 MC/CUMM (3.8-5.5); Red Cell Distribution Width 12.2 % (9.3-17.3); White Blood Count 18.4 T/CUMM (4-12)
[2019-05-30 14:51] LABS: INR 0.8; PT Patient Result 9.2 SECS (9.6-12.2)
[2019-05-30 15:12] LABS: Alanine Aminotransferase 33 U/L (16-61); Alkaline Phosphatase 202 U/L (45-117); Aspartate Amino Transferase 24 U/L (0-37); Blood Urea Nitrogen 26 MG/DL (7-18); Calcium 8.7 MG/DL (8.5-10.1); Glucose 179 MG/DL (74-106); Osmolality,Calculated 278.1 MOS/KG (273-304); Total Protein 7.3 G/DL (6.4-8.3); Troponin I < 0.015 NG/ML (0.00-0.045)
[2019-05-30 16:09] LABS: Apearance,Urine CLEAR (Clear); Bilirubin,Urine Negative (Negative); Blood, Urine Small mg/dL (Negative); Glucose,Urine (UA) 150 mg/dL (Negative); Hyaline Casts,Urine 3 /LPF (0-3); Ketones,Urine Negative (Negative); Mucus,Urine Occasional /LPF (Occasional); Nitrite,Urine Negative (Negative); Protein,Urine >=500 MG/DL; RBC,Urine <1 /HPF (0-4); Squamous Epithelial Cell,Urine Occasional /HPF (0-10); Urine Color Yellow (Yellow); Urine Specific Gravity 1.009 (1.001-1.035); Urine Urobilinogen < 2.0 EU/DL (0.2-1.0); WBC,Urine 6 /HPF (0-6)
[2019-05-30] MEDS ORDERED: ACETAMINOPHEN 325 MG TABLET PO PRN (16:53)
[2019-05-30] MEDS ORDERED: GLUCAGON 1 MG VIAL IM PRN (17:03)
[2019-05-30] MEDS ORDERED: DEXTROSE 10% 25 GM/250 ML BAG IV PRN (17:03)
[2019-05-30] MEDS ORDERED: MORPHINE 4 MG/1 ML VIAL IV PRN (17:37)
[2019-05-30] MEDS: SODIUM CHLORIDE 0.9% 1,000 ML IV SCH (18:29)
[2019-05-30] MEDS: CIPROFLOXACIN INJ 400 MG in PREMIX 1 EACH IV SCH (21:03)
[2019-05-30] MEDS: INSULIN GLARGINE 100 UNIT/ML SUBCUT SCH (21:04)
[2019-05-30] MEDS: INSULIN LISPRO 100 UNIT/ML SUBCUT SCH (21:07)
[2019-05-30] MEDS: metroNIDAZOLE INJ 500 MG in PREMIX 1 EACH IV SCH (22:55)
[2019-05-31] MEDS: metroNIDAZOLE INJ 500 MG in PREMIX 1 EACH IV SCH ×4 (04:07→20:46)
[2019-05-31] MEDS: SODIUM CHLORIDE 0.9% 1,000 ML IV SCH ×2 (06:01→14:42)
[2019-05-31 06:14] LABS: Basophils % 0.3 % (0.0-0.8); Eosinophils # 0.7 10*3/uL (0.0-0.87); Eosinophils % 6.1 % (0.00-10.9); Hematocrit 29.7 VOL% (42.0-52.0); Hemoglobin 9.7 GM/DL (14.0-18.0); Immature Granulocytes % 0.6 %; Immature Granulocytes Absolute 0.07 #; Lymphocytes # 3.2 10*3/uL (1.4-4.0); Lymphocytes % 26.7 % (21.2-54.2); Mean Corpuscular HGB Conc 32.7 GM/DL (32-36); Mean Corpuscular Volume 85.3 FL (87-102); Mean Platelet Volume 8.6 FL (9.6-12.0); Monocytes % 9.8 % (1.7-12.7); Neutrophils % 56.5 % (38.7-73.9); Platelet Count 393 T/CUMM (130-400); Red Blood Count 3.48 MC/CUMM (3.8-5.5); Red Cell Distribution Width 12.3 % (9.3-17.3); White Blood Count 11.8 T/CUMM (4-12)
[2019-05-31 06:35] LABS: Calcium 7.9 MG/DL (8.5-10.1); Osmolality,Calculated 283.5 MOS/KG (273-304); Risk Ratio 2.51; Thyroid Stimulating Hormone 2.89 uIU/ml (0.358-3.74)
[2019-05-31] MEDS: INSULIN LISPRO 100 UNIT/ML SUBCUT SCH ×4 (07:37→21:56)
[2019-05-31] MEDS ORDERED: ATORVASTATIN 40 MG TABLET PO SCH (09:00)
[2019-05-31] MEDS ORDERED: MAGNESIUM SULF RIDER 2 GM in PREMIX 1 EACH IV ONE (09:00)
[2019-05-31] MEDS ORDERED: ENOXAPARIN 40 MG/0.4 ML SYRINGE SUBCUT SCH (09:00)
[2019-05-31] MEDS: hydrALAZINE 25 MG TABLET PO SCH ×3 (10:05→20:47)
[2019-05-31] MEDS: GABAPENTIN 100 MG CAPSULE PO SCH ×2 (10:05→20:47)
[2019-05-31] MEDS: PANTOPRAZOLE 40 MG TABLET PO SCH (10:06)
[2019-05-31] MEDS: amLODIPine 10 MG TABLET PO SCH (10:09)
[2019-05-31] MEDS: CIPROFLOXACIN INJ 400 MG in PREMIX 1 EACH IV SCH ×2 (11:26→20:46)
[2019-05-31] MEDS ORDERED: MAGNESIUM CITRATE 300 ML BOTTLE PO ONE (18:00)
[2019-05-31] MEDS: AMITRIPTYLINE 50 MG TABLET PO SCH (20:47)
[2019-05-31] MEDS: INSULIN GLARGINE 100 UNIT/ML SUBCUT SCH (21:54)
[2019-06-01] MEDS: SODIUM CHLORIDE 0.9% 1,000 ML IV SCH ×2 (01:32→16:32)
[2019-06-01] MEDS: metroNIDAZOLE INJ 500 MG in PREMIX 1 EACH IV SCH ×4 (02:48→22:13)
[2019-06-01 06:09] LABS: Basophils % 0.3 % (0.0-0.8); Eosinophils # 0.7 10*3/uL (0.0-0.87); Eosinophils % 6.9 % (0.00-10.9); Hematocrit 28.3 VOL% (42.0-52.0); Hemoglobin 9.2 GM/DL (14.0-18.0); Immature Granulocytes % 0.9 %; Immature Granulocytes Absolute 0.09 #; Mean Corpuscular HGB Conc 32.5 GM/DL (32-36); Mean Platelet Volume 8.6 FL (9.6-12.0); Monocytes % 10.1 % (1.7-12.7); Neutrophils % 53.8 % (38.7-73.9); Platelet Count 405 T/CUMM (130-400); Red Blood Count 3.33 MC/CUMM (3.8-5.5); Red Cell Distribution Width 12.3 % (9.3-17.3); White Blood Count 10.5 T/CUMM (4-12)
[2019-06-01 06:17] LABS: Calcium 8.1 MG/DL (8.5-10.1); Osmolality,Calculated 287.1 MOS/KG (273-304)
[2019-06-01] MEDS: INSULIN LISPRO 100 UNIT/ML SUBCUT SCH ×4 (09:36→21:29)
[2019-06-01] MEDS: CIPROFLOXACIN INJ 400 MG in PREMIX 1 EACH IV SCH ×2 (09:42→20:55)
[2019-06-01] MEDS ORDERED: LIDOCAINE 5% PATCH TRANSDERM PRN (09:44)
[2019-06-01] MEDS: PANTOPRAZOLE 40 MG TABLET PO SCH (09:45)
[2019-06-01] MEDS: hydrALAZINE 25 MG TABLET PO SCH ×3 (09:45→20:56)
[2019-06-01] MEDS: amLODIPine 10 MG TABLET PO SCH (09:45)
[2019-06-01] MEDS: GABAPENTIN 100 MG CAPSULE PO SCH ×2 (09:46→20:56)
[2019-06-01] MEDS: AMITRIPTYLINE 50 MG TABLET PO SCH (20:57)
[2019-06-01] MEDS: INSULIN GLARGINE 100 UNIT/ML SUBCUT SCH (21:30)
[2019-06-02] MEDS: metroNIDAZOLE INJ 500 MG in PREMIX 1 EACH IV SCH ×2 (03:05→09:43)
[2019-06-02] MEDS: SODIUM CHLORIDE 0.9% 1,000 ML IV SCH ×4 (04:42→22:20)
[2019-06-02 06:08] LABS: Basophils # 0.1 10*3/uL (0.0-0.2); Basophils % 0.6 % (0.0-0.8); Eosinophils # 0.7 10*3/uL (0.0-0.87); Eosinophils % 7.5 % (0.00-10.9); Hematocrit 28.5 VOL% (42.0-52.0); Hemoglobin 9.2 GM/DL (14.0-18.0); Immature Granulocytes Absolute 0.09 #; Lymphocytes # 2.8 10*3/uL (1.4-4.0); Lymphocytes % 29.3 % (21.2-54.2); Mean Corpuscular HGB Conc 32.3 GM/DL (32-36); Mean Corpuscular Volume 85.6 FL (87-102); Mean Platelet Volume 8.8 FL (9.6-12.0); Monocytes % 10.7 % (1.7-12.7); Neutrophils % 50.9 % (38.7-73.9); Platelet Count 442 T/CUMM (130-400); Red Blood Count 3.33 MC/CUMM (3.8-5.5); Red Cell Distribution Width 12.7 % (9.3-17.3); White Blood Count 9.4 T/CUMM (4-12)
[2019-06-02 06:19] LABS: Osmolality,Calculated 289.7 MOS/KG (273-304)
[2019-06-02] MEDS: CIPROFLOXACIN INJ 400 MG in PREMIX 1 EACH IV SCH (08:13)
[2019-06-02] MEDS: INSULIN LISPRO 100 UNIT/ML SUBCUT SCH ×4 (08:14→20:55)
[2019-06-02] MEDS ORDERED: DEXTROSE 50% 25 GM/50 ML VIAL IV PRN (12:06)
[2019-06-02] MEDS: hydrALAZINE 25 MG TABLET PO SCH ×3 (12:07→20:54)
[2019-06-02] MEDS: PANTOPRAZOLE 40 MG TABLET PO SCH (14:20)
[2019-06-02] MEDS: GABAPENTIN 100 MG CAPSULE PO SCH ×2 (14:20→20:55)
[2019-06-02] MEDS: amLODIPine 10 MG TABLET PO SCH (14:20)
[2019-06-02] MEDS: AMITRIPTYLINE 50 MG TABLET PO SCH (20:54)
[2019-06-02] MEDS: INSULIN GLARGINE 100 UNIT/ML SUBCUT SCH (20:55)
[2019-06-03] MEDS: SODIUM CHLORIDE 0.9% 1,000 ML IV SCH ×2 (06:20→16:35)
[2019-06-03] MEDS ORDERED: cefOXitin 2,000 MG in SYRINGE 1 EACH IV ONE (07:00)
[2019-06-03 07:41] LABS: Basophils # 0.1 10*3/uL (0.0-0.2); Basophils % 0.7 % (0.0-0.8); Eosinophils # 0.9 10*3/uL (0.0-0.87); Eosinophils % 8.2 % (0.00-10.9); Hematocrit 29.9 VOL% (42.0-52.0); Hemoglobin 9.9 GM/DL (14.0-18.0); Immature Granulocytes % 0.8 %; Immature Granulocytes Absolute 0.09 #; Lymphocytes # 3.1 10*3/uL (1.4-4.0); Lymphocytes % 28.9 % (21.2-54.2); Mean Corpuscular HGB Conc 33.1 GM/DL (32-36); Mean Corpuscular Volume 84.9 FL (87-102); Mean Platelet Volume 8.5 FL (9.6-12.0); Monocytes % 9.9 % (1.7-12.7); Neutrophils % 51.5 % (38.7-73.9); Platelet Count 451 T/CUMM (130-400); Red Blood Count 3.52 MC/CUMM (3.8-5.5); Red Cell Distribution Width 12.6 % (9.3-17.3); White Blood Count 10.7 T/CUMM (4-12)
[2019-06-03] MEDS: INSULIN LISPRO 100 UNIT/ML SUBCUT SCH ×4 (08:03→20:54)
[2019-06-03 08:04] LABS: Albumin 1.8 G/DL (3.4-5.0); Bilirubin,Total 0.4 MG/DL (0.2-1.0); Calcium 7.9 MG/DL (8.5-10.1); Osmolality,Calculated 291.8 MOS/KG (273-304); Total Protein 6.2 G/DL (6.4-8.3)
[2019-06-03] MEDS ORDERED: BUPIVACAINE 0.25% /EPI 10 ML VIAL ONE (08:57)
[2019-06-03] MEDS ORDERED: LIDOCAINE MPF 1% /EPI 30 ML VIAL ONE (08:57)
[2019-06-03] MEDS ORDERED: ALBUTEROL 2.5 MG/3 ML NEB RESP TX ONE (09:00)
[2019-06-03] MEDS ORDERED: PROPOFOL 200 MG/20 ML VIAL IV ONE (11:36)
[2019-06-03] MEDS ORDERED: hydrALAZINE 20 MG/1 ML VIAL ONE (11:37)
[2019-06-03] MEDS ORDERED: MIDAZOLAM 2 MG/2 ML VIAL ONE (11:37)
[2019-06-03] MEDS ORDERED: LABETALOL 20 MG/4 ML SYRINGE IV ONE (11:37)
[2019-06-03] MEDS ORDERED: fentaNYL 100 MCG/2 ML VIAL ONE (11:37)
[2019-06-03] MEDS ORDERED: LIDOCAINE 2% 5 ML VIAL ONE (11:37)
[2019-06-03] MEDS ORDERED: ONDANSETRON 4 MG/2 ML VIAL ONE (11:38)
[2019-06-03] MEDS ORDERED: GLYCOPYRROLATE 0.4 MG/2 ML VIAL ONE (11:38)
[2019-06-03] MEDS ORDERED: NEOSTIGMINE 10 MG/10 ML VIAL ONE (11:38)
[2019-06-03] MEDS ORDERED: PHENYLEPHRINE 1 MG/10 ML SYRINGE IV ONE (11:38)
[2019-06-03] MEDS ORDERED: LACTATED RINGERS 1,000 ML IV ONE (11:38)
[2019-06-03] MEDS ORDERED: SEVOFLURANE 1 UNIT/15 MINUTE INH ONE (11:38)
[2019-06-03] MEDS: hydrALAZINE 25 MG TABLET PO SCH ×3 (14:19→20:55)
[2019-06-03] MEDS: GABAPENTIN 100 MG CAPSULE PO SCH ×2 (14:19→20:55)
[2019-06-03] MEDS: amLODIPine 10 MG TABLET PO SCH (14:20)
[2019-06-03] MEDS: PANTOPRAZOLE 40 MG TABLET PO SCH (14:20)
[2019-06-03] MEDS: INSULIN GLARGINE 100 UNIT/ML SUBCUT SCH (20:54)
[2019-06-03] MEDS: AMITRIPTYLINE 50 MG TABLET PO SCH (20:55)
[2019-06-04] MEDS: SODIUM CHLORIDE 0.9% 1,000 ML IV SCH ×4 (04:14→12:05)
[2019-06-04 05:00] LABS: Basophils # 0.1 10*3/uL (0.0-0.2); Basophils % 0.7 % (0.0-0.8); Eosinophils # 0.6 10*3/uL (0.0-0.87); Eosinophils % 5.5 % (0.00-10.9); Hematocrit 29.7 VOL% (42.0-52.0); Hemoglobin 9.6 GM/DL (14.0-18.0); Immature Granulocytes % 1.1 %; Immature Granulocytes Absolute 0.12 #; Lymphocytes # 2.8 10*3/uL (1.4-4.0); Mean Corpuscular HGB Conc 32.3 GM/DL (32-36); Mean Corpuscular Volume 86.8 FL (87-102); Mean Platelet Volume 8.3 FL (9.6-12.0); Monocytes % 9.7 % (1.7-12.7); Platelet Count 417 T/CUMM (130-400); Red Blood Count 3.42 MC/CUMM (3.8-5.5); Red Cell Distribution Width 13.1 % (9.3-17.3); White Blood Count 11.3 T/CUMM (4-12)
[2019-06-04 05:31] LABS: Albumin 1.7 G/DL (3.4-5.0); Bilirubin,Total 0.8 MG/DL (0.2-1.0); Calcium 7.9 MG/DL (8.5-10.1); Osmolality,Calculated 285.4 MOS/KG (273-304); Total Protein 6.2 G/DL (6.4-8.3)
[2019-06-04] MEDS: GABAPENTIN 100 MG CAPSULE PO SCH (08:44)
[2019-06-04] MEDS: INSULIN LISPRO 100 UNIT/ML SUBCUT SCH ×2 (08:44→12:00)
[2019-06-04] MEDS: amLODIPine 10 MG TABLET PO SCH (08:44)
[2019-06-04] MEDS: hydrALAZINE 25 MG TABLET PO SCH ×2 (08:44→14:42)
[2019-06-04] MEDS: PANTOPRAZOLE 40 MG TABLET PO SCH (08:44)
[2019-06-04 12:00] VITALS: BP 139/81
== END 2019-06-04 15:00 | disposition home or self-care (01) | DRG 418 ==
LOC: EDBD → EDUNIT# → N.ED 12:53 → SUATTDRO 16:46 → N.EDINP 16:46 → N.2E 18:00
PROVIDERS: ADMIT Internal Medicine; ATTEND Family Medicine
PROC: LAPCHOL (2019-06-03 09:05)

== ENCOUNTER 2019-12-03 16:02 | Inpatient (IN) ==
[2019-12-03 16:35] LABS: Basophils # 0.1 10*3/uL (0.0-0.2); Basophils % 0.9 % (0.0-0.8); Eosinophils # 0.7 10*3/uL (0.0-0.87); Eosinophils % 7.8 % (0.00-10.9); Hemoglobin 8.7 GM/DL (14.0-18.0); Immature Granulocytes % 1.5 %; Immature Granulocytes Absolute 0.14 #; Lymphocytes # 2.9 10*3/uL (1.4-4.0); Lymphocytes % 31.1 % (21.2-54.2); Mean Corpuscular HGB Conc 31.1 GM/DL (32-36); Mean Corpuscular Volume 89.2 FL (87-102); Mean Platelet Volume 8.7 FL (9.6-12.0); Monocytes % 11.2 % (1.7-12.7); Neutrophils % 47.5 % (38.7-73.9); Platelet Count 369 T/CUMM (130-400); Red Blood Count 3.14 MC/CUMM (3.8-5.5); Red Cell Distribution Width 13.4 % (9.3-17.3); White Blood Count 9.4 T/CUMM (4-12)
[2019-12-03] MEDS ORDERED: ASPIRIN 325 MG TABLET PO STA (16:37)
[2019-12-03] MEDS ORDERED: KETOROLAC 30 MG/1 ML VIAL IV STA (16:37)
[2019-12-03] MEDS ORDERED: ALBUTEROL/IPRATROPIUM 3 ML NEB RESP TX STA (16:37)
[2019-12-03] MEDS ORDERED: ORPHENADRINE 60 MG/2 ML VIAL IV STA (16:37)
[2019-12-03] MEDS ORDERED: ONDANSETRON 4 MG/2 ML VIAL IV STA (16:37)
[2019-12-03] MEDS ORDERED: FUROSEMIDE 40 MG/4 ML VIAL IV STA (16:56)
[2019-12-03 16:57] LABS: INR 0.8; PT Patient Result 9.1 SECS (9.6-12.2); Partial Thromboplastin Time 26.3 SECS (20.8-36.0)
[2019-12-03 17:03] LABS: Alanine Aminotransferase 39 U/L (16-61); Alkaline Phosphatase 162 U/L (45-117); Aspartate Amino Transferase 29 U/L (0-37); Bilirubin,Total < 0.39 MG/DL (0.2-1.0); Blood Urea Nitrogen 54 MG/DL (7-18); Calcium 7.3 MG/DL (8.5-10.1); Estimated Glom Filtration Rate 21 ML/MIN; Glucose 146 MG/DL (74-106); Osmolality,Calculated 294.5 MOS/KG (273-304); Total Protein 5.9 G/DL (6.4-8.3)
[2019-12-03 17:28] LABS: Amylase 82 U/L (25-115); CKMB % 0.6 %; Troponin I < 0.015 NG/ML (0.00-0.045)
[2019-12-03 18:17] LABS: Apearance,Urine Slightly Hazy (Clear); Bacteria,Urine Occasional /HPF (Few); Bilirubin,Urine Negative (Negative); Blood, Urine Moderate mg/dL (Negative); Glucose,Urine (UA) >=500 mg/dL (Negative); Hyaline Casts,Urine 3 /LPF (0-3); Ketones,Urine Negative (Negative); Mucus,Urine Occasional /LPF (Occasional); Nitrite,Urine Negative (Negative); Protein,Urine 100 MG/DL; RBC,Urine 3 /HPF (0-4); Squamous Epithelial Cell,Urine Occasional /HPF (0-10); Urine Color Yellow (Yellow); Urine Specific Gravity 1.011 (1.001-1.035); Urine Urobilinogen < 2.0 EU/DL (0.2-1.0); WBC,Urine 5 /HPF (0-6)
[2019-12-03 18:46] LABS: Barbiturates Screen,Urine Negative (Negative); Benzodiazepines Screen,Urine Negative (Negative); Cannabinoid Screen,Urine Negative (Negative); Opiate Screen,Urine Negative (Negative); Phencyclidine Screen,Urine Negative (Negative)
[2019-12-03] MEDS ORDERED: DEXTROSE 50% 25 GM/50 ML SYRINGE IV PRN (19:05)
[2019-12-03] MEDS ORDERED: DOCUSATE SODIUM 100 MG CAPSULE PO PRN (19:05)
[2019-12-03] MEDS ORDERED: CALCIUM CARBONATE CHEW 500 MG TABLET PO PRN (19:05)
[2019-12-03] MEDS ORDERED: ACETAMINOPHEN 325 MG TABLET PO PRN (19:05)
[2019-12-03] MEDS ORDERED: BISACODYL 5 MG TABLET PO PRN (19:05)
[2019-12-03] MEDS ORDERED: GLUCAGON 1 MG VIAL IM PRN (19:05)
[2019-12-03] MEDS ORDERED: ONDANSETRON 4 MG/2 ML VIAL IV PRN (19:05)
[2019-12-03] MEDS ORDERED: ZALEPLON 5 MG CAPSULE PO PRN (19:05)
[2019-12-03] MEDS ORDERED: ALUMINUM/MAGNES/SIMETH MAX STR 30 ML UDCUP PO PRN (19:05)
[2019-12-03] MEDS: SODIUM CHLORIDE 0.9% 1,000 ML IV SCH (21:29)
[2019-12-03] MEDS: hydrALAZINE 25 MG TABLET PO SCH (21:29)
[2019-12-03] MEDS: ENOXAPARIN 30 MG/0.3 ML SYRINGE SUBCUT SCH (21:29)
[2019-12-03] MEDS: INSULIN REGULAR 100 UNIT/ML SUBCUT SCH (21:30)
[2019-12-04] MEDS: SODIUM CHLORIDE 0.9% 1,000 ML IV SCH ×2 (05:19→18:38)
[2019-12-04 07:31] LABS: Basophils # 0.1 10*3/uL (0.0-0.2); Basophils % 0.4 % (0.0-0.8); Eosinophils # 0.7 10*3/uL (0.0-0.87); Eosinophils % 4.7 % (0.00-10.9); Hemoglobin 8.5 GM/DL (14.0-18.0); Immature Granulocytes % 1.1 %; Immature Granulocytes Absolute 0.15 #; Lymphocytes % 14.2 % (21.2-54.2); Mean Corpuscular HGB Conc 31.5 GM/DL (32-36); Mean Corpuscular Volume 88.8 FL (87-102); Monocytes % 8.7 % (1.7-12.7); Neutrophils % 70.9 % (38.7-73.9); Platelet Count 345 T/CUMM (130-400); Red Blood Count 3.04 MC/CUMM (3.8-5.5); Red Cell Distribution Width 13.5 % (9.3-17.3); White Blood Count 13.7 T/CUMM (4-12)
[2019-12-04 07:52] LABS: Albumin 1.7 G/DL (3.4-5.0); Bilirubin,Total 0.4 MG/DL (0.2-1.0); Calcium 7.7 MG/DL (8.5-10.1); Osmolality,Calculated 290.7 MOS/KG (273-304)
[2019-12-04 08:12] LABS: CKMB % 0.5 %
[2019-12-04] MEDS: INSULIN REGULAR 100 UNIT/ML SUBCUT SCH ×4 (09:53→21:00)
[2019-12-04] MEDS: hydrALAZINE 25 MG TABLET PO SCH ×3 (09:56→20:59)
[2019-12-04] MEDS: POLYETHYLENE GLYCOL POWDER 17 GM PACK PO SCH (09:56)
[2019-12-04] MEDS: PANTOPRAZOLE 40 MG TABLET PO SCH (09:56)
[2019-12-04] MEDS: amLODIPine 10 MG TABLET PO SCH (09:56)
[2019-12-04] MEDS: LINACLOTIDE 145 MCG CAPSULE PO SCH (09:56)
[2019-12-04 11:13] LABS: Amorphous Crystals,Urine Few /HPF (Few); Apearance,Urine CLOUDY (Clear); Bilirubin,Urine Negative (Negative); Blood, Urine Large mg/dL (Negative); Glucose,Urine (UA) 150 mg/dL (Negative); Ketones,Urine Negative (Negative); Mucus,Urine Occasional /LPF (Occasional); Nitrite,Urine Negative (Negative); Protein,Urine 100 MG/DL; RBC,Urine 375 /HPF (0-4); Urine Color Yellow (Yellow); Urine Urobilinogen < 2.0 EU/DL (0.2-1.0); WBC,Urine 9 /HPF (0-6)
[2019-12-04 12:20] LABS: Microalbum/Creat Ratio Random 7409.1 RATIO (0-30)
[2019-12-04] MEDS: FUROSEMIDE 20 MG/2 ML VIAL IV SCH (18:37)
[2019-12-04] MEDS: ALBUMIN 25% 25 GM in PREMIX 1 EACH IV SCH ×2 (18:37→20:59)
[2019-12-04] MEDS: ENOXAPARIN 30 MG/0.3 ML SYRINGE SUBCUT SCH (20:59)
[2019-12-05] MEDS: SODIUM CHLORIDE 0.9% 1,000 ML IV SCH ×3 (04:15→23:30)
[2019-12-05 04:18] LABS: Basophils # 0.1 10*3/uL (0.0-0.2); Basophils % 0.5 % (0.0-0.8); Eosinophils # 0.4 10*3/uL (0.0-0.87); Eosinophils % 2.8 % (0.00-10.9); Hemoglobin 7.5 GM/DL (14.0-18.0); Immature Granulocytes % 0.7 %; Lymphocytes # 2.5 10*3/uL (1.4-4.0); Lymphocytes % 16.9 % (21.2-54.2); Mean Corpuscular Volume 92.3 FL (87-102); Mean Platelet Volume 9.3 FL (9.6-12.0); Monocytes % 9.6 % (1.7-12.7); Neutrophils % 69.5 % (38.7-73.9); Platelet Count 324 T/CUMM (130-400); Red Blood Count 2.71 MC/CUMM (3.8-5.5); Red Cell Distribution Width 13.3 % (9.3-17.3); White Blood Count 14.5 T/CUMM (4-12)
[2019-12-05 04:33] LABS: Calcium 7.5 MG/DL (8.5-10.1); Osmolality,Calculated 282.2 MOS/KG (273-304)
[2019-12-05 04:38] LABS: Risk Ratio 1.71; VLDL CHOLESTEROL 15.8 MG/DL
[2019-12-05 04:54] LABS: Eosinophils 6 % (0-10); Hypochromasia 1+; Lymphocytes 18 % (20-55); Ovalocytes Slight; Platelet Estimate Adequate; Segmented Neutrophils 66 % (50-85); Total Cells Counted 100
[2019-12-05] MEDS: INSULIN REGULAR 100 UNIT/ML SUBCUT SCH ×4 (08:04→20:53)
[2019-12-05] MEDS ORDERED: MAGNESIUM SULF RIDER 2 GM in PREMIX 1 EACH IV ONE (09:12)
[2019-12-05] MEDS ORDERED: SODIUM CHLORIDE 0.9% 1,000 ML IV PRN (09:59)
[2019-12-05] MEDS: PANTOPRAZOLE 40 MG TABLET PO SCH (10:00)
[2019-12-05] MEDS: amLODIPine 10 MG TABLET PO SCH (10:00)
[2019-12-05] MEDS: FUROSEMIDE 20 MG/2 ML VIAL IV SCH ×2 (10:01→16:15)
[2019-12-05] MEDS: POLYETHYLENE GLYCOL POWDER 17 GM PACK PO SCH (10:01)
[2019-12-05] MEDS: hydrALAZINE 25 MG TABLET PO SCH ×3 (10:01→20:53)
[2019-12-05] MEDS: LINACLOTIDE 145 MCG CAPSULE PO SCH (10:02)
[2019-12-05] MEDS: ALBUMIN 25% 25 GM in PREMIX 1 EACH IV SCH ×2 (10:16→20:52)
[2019-12-05] MEDS: ASCORBIC ACID 500 MG TABLET PO SCH ×2 (13:39→20:53)
[2019-12-05] MEDS: cefTRIAXone 1,000 MG in SYRINGE 1 EACH IV SCH (13:41)
[2019-12-05 14:06] LABS: Free T4 (Free Thyroxine) 0.82 NG/DL (0.76-1.46)
[2019-12-05] MEDS: GABAPENTIN 300 MG CAPSULE PO SCH (20:53)
[2019-12-05] MEDS: ENOXAPARIN 30 MG/0.3 ML SYRINGE SUBCUT SCH (20:54)
[2019-12-05] MEDS ORDERED: ROCURONIUM 100 MG/10 ML VIAL IV ONE (21:27)
[2019-12-05] MEDS ORDERED: ETOMIDATE 20 MG/10 ML VIAL IV ONE (21:27)
[2019-12-05] MEDS ORDERED: LORazepam 2 MG/1 ML VIAL ONE (21:32)
[2019-12-05] MEDS ORDERED: VECURONIUM 10 MG VIAL IV ONE (21:38)
[2019-12-05 22:52] LABS: ABG Base Excess -8.9 MMOL/L (-2.5-2.5); ABG HCO3 17.3 MMOL/L (20-26); ABG Oxygen Saturation 98.6 % (95-100); ABG PCO2 53.7 MM HG (35-48); ABG TCO2 18.6 MMOL/L (23-27); Allen Test Positive; Pt O2 Delivery Device Ventilator
[2019-12-05 23:05] LABS: ABG PH 7.175 (7.35-7.45)
[2019-12-05] MEDS ORDERED: SODIUM BICARBONATE 50 MEQ/50 ML VIAL IV ONE (23:21)
[2019-12-06] MEDS: SODIUM CHLORIDE 0.9% 1,000 ML IV SCH (01:07)
[2019-12-06 02:37] LABS: ABG Base Excess -5.3 MMOL/L (-2.5-2.5); ABG HCO3 20.1 MMOL/L (20-26); ABG Oxygen Saturation 98.3 % (95-100); ABG PCO2 39.5 MM HG (35-48); ABG PH 7.321 (7.35-7.45); Allen Test Positive; Pt O2 Delivery Device Ventilator
[2019-12-06 03:01] LABS: Basophils # 0.1 10*3/uL (0.0-0.2); Basophils % 0.4 % (0.0-0.8); Eosinophils # 0.2 10*3/uL (0.0-0.87); Eosinophils % 1.3 % (0.00-10.9); Hematocrit 24.8 VOL% (42.0-52.0); Hemoglobin 7.4 GM/DL (14.0-18.0); Immature Granulocytes % 0.9 %; Immature Granulocytes Absolute 0.11 #; Lymphocytes # 1.3 10*3/uL (1.4-4.0); Mean Corpuscular HGB Conc 29.8 GM/DL (32-36); Mean Corpuscular Volume 92.2 FL (87-102); Mean Platelet Volume 8.8 FL (9.6-12.0); Monocytes % 10.5 % (1.7-12.7); Neutrophils % 76.9 % (38.7-73.9); Platelet Count 289 T/CUMM (130-400); Red Blood Count 2.69 MC/CUMM (3.8-5.5); Red Cell Distribution Width 13.3 % (9.3-17.3); White Blood Count 12.6 T/CUMM (4-12)
[2019-12-06 03:28] LABS: Alanine Aminotransferase 53 U/L (16-61); Albumin 1.9 G/DL (3.4-5.0); Alkaline Phosphatase 124 U/L (45-117); Aspartate Amino Transferase 41 U/L (0-37); Bilirubin,Total < 0.39 MG/DL (0.2-1.0); Blood Urea Nitrogen 54 MG/DL (7-18); Calcium 7.7 MG/DL (8.5-10.1); Estimated Glom Filtration Rate 19 ML/MIN; Glucose 175 MG/DL (74-106); Osmolality,Calculated 293.7 MOS/KG (273-304); Total Protein 5.8 G/DL (6.4-8.3)
[2019-12-06] MEDS ORDERED: SODIUM BICARB INJ 50 MEQ, DEXTROSE 50% 25 GM, INSULIN REGULAR 10 UNIT in SODIUM CHLORID... IV ONE (05:00)
[2019-12-06] MEDS: INSULIN REGULAR 100 UNIT/ML SUBCUT SCH ×4 (07:48→21:16)
[2019-12-06] MEDS: PANTOPRAZOLE 40 MG VIAL IV SCH (08:43)
[2019-12-06] MEDS: POLYETHYLENE GLYCOL POWDER 17 GM PACK PO SCH (08:46)
[2019-12-06] MEDS: ALBUMIN 25% 25 GM in PREMIX 1 EACH IV SCH ×4 (08:55→17:47)
[2019-12-06] MEDS: hydrALAZINE 25 MG TABLET PO SCH ×3 (08:57→21:10)
[2019-12-06] MEDS: ASCORBIC ACID 500 MG TABLET PO SCH ×2 (08:57→21:10)
[2019-12-06] MEDS: amLODIPine 10 MG TABLET PO SCH (08:57)
[2019-12-06] MEDS ORDERED: TRANEXAMIC ACID 1,000 MG/10 ML VIAL ONE (10:01)
[2019-12-06 10:19] LABS: CKMB % 0.5 %
[2019-12-06 10:23] LABS: Troponin I 0.15 NG/ML (0.00-0.045)
[2019-12-06] MEDS: cefTRIAXone 1,000 MG in SYRINGE 1 EACH IV SCH (10:38)
[2019-12-06] MEDS: FUROSEMIDE 20 MG/2 ML VIAL IV SCH ×2 (12:09→19:11)
[2019-12-06] MEDS: LINACLOTIDE 145 MCG CAPSULE PO SCH (12:11)
[2019-12-06] MEDS ORDERED: SODIUM CHLORIDE 0.9% 1,000 ML IV PRN (12:35)
[2019-12-06 14:48] LABS: CKMB % 0.4 %
[2019-12-06 14:50] LABS: Troponin I 0.105 NG/ML (0.00-0.045)
[2019-12-06 18:31] LABS: CKMB % 0.5 %; Troponin I 0.084 NG/ML (0.00-0.045)
[2019-12-06] MEDS: GABAPENTIN 300 MG CAPSULE PO SCH (21:10)
[2019-12-06] MEDS: ENOXAPARIN 30 MG/0.3 ML SYRINGE SUBCUT SCH (21:11)
[2019-12-06] MEDS ORDERED: VECURONIUM 10 MG VIAL IV ONE (21:16)
[2019-12-06] MEDS ORDERED: EPINEPHrine 1 MG/10 ML SYRINGE ONE (21:16)
[2019-12-06] MEDS ORDERED: SODIUM BICARBONATE 50 MEQ/50 ML SYRINGE IV ONE (21:16)
[2019-12-06] MEDS ORDERED: CALCIUM CHLORIDE 1,000 MG/10 ML SYRINGE IV ONE (21:16)
[2019-12-06] MEDS ORDERED: LORazepam 2 MG/1 ML VIAL ONE (21:16)
[2019-12-06] MEDS ORDERED: ETOMIDATE 20 MG/10 ML VIAL IV ONE (21:16)
[2019-12-07 04:08] LABS: ABG Base Excess -5.3 MMOL/L (-2.5-2.5); ABG HCO3 20.1 MMOL/L (20-26); ABG Oxygen Saturation 98.8 % (95-100); ABG PCO2 41.8 MM HG (35-48); ABG PH 7.307 (7.35-7.45); ABG TCO2 18.4 MMOL/L (23-27); Allen Test Positive; Pt O2 Delivery Device Ventilator
[2019-12-07 04:33] LABS: Basophils # 0.1 10*3/uL (0.0-0.2); Basophils % 0.5 % (0.0-0.8); Eosinophils # 0.4 10*3/uL (0.0-0.87); Eosinophils % 3.8 % (0.00-10.9); Hematocrit 31.3 VOL% (42.0-52.0); Hemoglobin 9.9 GM/DL (14.0-18.0); Immature Granulocytes % 0.6 %; Immature Granulocytes Absolute 0.07 #; Lymphocytes # 1.2 10*3/uL (1.4-4.0); Lymphocytes % 11.1 % (21.2-54.2); Mean Corpuscular HGB Conc 31.6 GM/DL (32-36); Mean Corpuscular Volume 88.4 FL (87-102); Mean Platelet Volume 9.2 FL (9.6-12.0); Monocytes % 12.3 % (1.7-12.7); Neutrophils % 71.7 % (38.7-73.9); Platelet Count 323 T/CUMM (130-400); Red Blood Count 3.54 MC/CUMM (3.8-5.5); Red Cell Distribution Width 13.7 % (9.3-17.3); White Blood Count 11.2 T/CUMM (4-12)
[2019-12-07 05:01] LABS: Calcium 8.9 MG/DL (8.5-10.1); Osmolality,Calculated 296.3 MOS/KG (273-304)
[2019-12-07 05:06] LABS: Prealbumin 16.1 MG/DL (20-40)
[2019-12-07 05:29] LABS: Alanine Aminotransferase 62 U/L (16-61); Albumin 2.5 G/DL (3.4-5.0); Alkaline Phosphatase 160 U/L (45-117); Aspartate Amino Transferase 49 U/L (0-37); Bilirubin,Indirect 0.2 MG/DL (0.0-1.0); Bilirubin,Total < 0.39 MG/DL (0.2-1.0); Total Protein 6.7 G/DL (6.4-8.3)
[2019-12-07] MEDS: INSULIN REGULAR 100 UNIT/ML SUBCUT SCH ×4 (08:48→21:59)
[2019-12-07] MEDS: ALBUMIN 25% 25 GM in PREMIX 1 EACH IV SCH ×2 (09:24→16:28)
[2019-12-07] MEDS: POLYETHYLENE GLYCOL POWDER 17 GM PACK PO SCH (09:25)
[2019-12-07] MEDS: ASCORBIC ACID 500 MG TABLET PO SCH ×2 (09:25→21:56)
[2019-12-07] MEDS: hydrALAZINE 25 MG TABLET PO SCH ×3 (09:25→21:56)
[2019-12-07] MEDS: amLODIPine 10 MG TABLET PO SCH (09:25)
[2019-12-07] MEDS: LINACLOTIDE 145 MCG CAPSULE PO SCH (09:25)
[2019-12-07] MEDS: PANTOPRAZOLE 40 MG VIAL IV SCH (09:25)
[2019-12-07] MEDS: FUROSEMIDE 20 MG/2 ML VIAL IV SCH ×2 (09:26→16:31)
[2019-12-07] MEDS: cefTRIAXone 1,000 MG in SYRINGE 1 EACH IV SCH (11:07)
[2019-12-07] MEDS: ENOXAPARIN 30 MG/0.3 ML SYRINGE SUBCUT SCH (21:56)
[2019-12-07] MEDS: GABAPENTIN 300 MG CAPSULE PO SCH (21:56)
[2019-12-08 04:22] LABS: ABG Oxygen Saturation 96.7 % (95-100); ABG PCO2 42.7 MM HG (35-48); ABG PH 7.309 (7.35-7.45); ABG PO2 99.2 MM HG (80-95); ABG TCO2 22.3 MMOL/L (23-27); Allen Test Positive; Pt O2 Delivery Device Ventilator
[2019-12-08 05:49] LABS: Basophils # 0.1 10*3/uL (0.0-0.2); Basophils % 0.8 % (0.0-0.8); Eosinophils # 0.6 10*3/uL (0.0-0.87); Eosinophils % 6.4 % (0.00-10.9); Hematocrit 30.7 VOL% (42.0-52.0); Hemoglobin 9.3 GM/DL (14.0-18.0); Immature Granulocytes % 1.1 %; Lymphocytes # 1.2 10*3/uL (1.4-4.0); Lymphocytes % 13.7 % (21.2-54.2); Mean Corpuscular HGB Conc 30.3 GM/DL (32-36); Mean Corpuscular Volume 92.2 FL (87-102); Monocytes % 11.7 % (1.7-12.7); Neutrophils % 66.3 % (38.7-73.9); Platelet Count 340 T/CUMM (130-400); Red Blood Count 3.33 MC/CUMM (3.8-5.5); Red Cell Distribution Width 14.1 % (9.3-17.3)
[2019-12-08 05:55] LABS: Calcium 8.7 MG/DL (8.5-10.1); Osmolality,Calculated 296.3 MOS/KG (273-304)
[2019-12-08] MEDS: INSULIN REGULAR 100 UNIT/ML SUBCUT SCH ×4 (07:43→22:24)
[2019-12-08] MEDS: LINACLOTIDE 145 MCG CAPSULE PO SCH (08:09)
[2019-12-08] MEDS: ALBUMIN 25% 25 GM in PREMIX 1 EACH IV SCH ×2 (08:10→15:27)
[2019-12-08] MEDS: ASCORBIC ACID 500 MG TABLET PO SCH ×2 (08:13→21:01)
[2019-12-08] MEDS: hydrALAZINE 25 MG TABLET PO SCH ×3 (08:13→21:01)
[2019-12-08] MEDS: amLODIPine 10 MG TABLET PO SCH (08:13)
[2019-12-08] MEDS: FUROSEMIDE 20 MG/2 ML VIAL IV SCH (08:15)
[2019-12-08] MEDS: PANTOPRAZOLE 40 MG VIAL IV SCH (08:19)
[2019-12-08] MEDS: cefTRIAXone 1,000 MG in SYRINGE 1 EACH IV SCH (10:30)
[2019-12-08] MEDS: FUROSEMIDE 40 MG/4 ML VIAL IV SCH (16:30)
[2019-12-08] MEDS: ENOXAPARIN 30 MG/0.3 ML SYRINGE SUBCUT SCH (21:01)
[2019-12-08] MEDS: GABAPENTIN 300 MG CAPSULE PO SCH (21:01)
[2019-12-09] MEDS ORDERED: ROCURONIUM 100 MG/10 ML VIAL IV ONE ×2 (02:14→02:15)
[2019-12-09] MEDS ORDERED: ETOMIDATE 20 MG/10 ML VIAL IV ONE ×2 (02:15)
[2019-12-09 02:23] LABS: ABG Base Excess -6.9 MMOL/L (-2.5-2.5); ABG HCO3 18.8 MMOL/L (20-26); ABG Oxygen Saturation 97.8 % (95-100); ABG PCO2 46.1 MM HG (35-48); ABG PH 7.251 (7.35-7.45); ABG TCO2 18.7 MMOL/L (23-27)
[2019-12-09 05:39] LABS: Basophils # 0.1 10*3/uL (0.0-0.2); Basophils % 0.4 % (0.0-0.8); Eosinophils # 0.8 10*3/uL (0.0-0.87); Hematocrit 30.2 VOL% (42.0-52.0); Hemoglobin 9.5 GM/DL (14.0-18.0); Immature Granulocytes % 1.6 %; Immature Granulocytes Absolute 0.19 #; Lymphocytes # 1.5 10*3/uL (1.4-4.0); Lymphocytes % 13.2 % (21.2-54.2); Mean Corpuscular HGB Conc 31.5 GM/DL (32-36); Mean Corpuscular Volume 89.3 FL (87-102); Mean Platelet Volume 9.1 FL (9.6-12.0); Monocytes % 12.6 % (1.7-12.7); Neutrophils % 65.2 % (38.7-73.9); Platelet Count 351 T/CUMM (130-400); Red Blood Count 3.38 MC/CUMM (3.8-5.5); Red Cell Distribution Width 14.3 % (9.3-17.3); White Blood Count 11.6 T/CUMM (4-12)
[2019-12-09 05:58] LABS: Albumin 2.8 G/DL (3.4-5.0); Bilirubin,Total 0.6 MG/DL (0.2-1.0); Calcium 8.9 MG/DL (8.5-10.1); Osmolality,Calculated 298.3 MOS/KG (273-304); Total Protein 6.9 G/DL (6.4-8.3)
[2019-12-09 06:41] LABS: ABG Base Excess -6.6 MMOL/L (-2.5-2.5); ABG HCO3 18.9 MMOL/L (20-26); ABG Oxygen Saturation 96.7 % (95-100); ABG PCO2 45.8 MM HG (35-48); ABG PH 7.256 (7.35-7.45); ABG PO2 94.9 MM HG (80-95); Allen Test Positive; Pt O2 Delivery Device Ventilator
[2019-12-09] MEDS: INSULIN REGULAR 100 UNIT/ML SUBCUT SCH ×4 (08:04→20:13)
[2019-12-09] MEDS: ALBUMIN 25% 25 GM in PREMIX 1 EACH IV SCH ×2 (08:23→14:58)
[2019-12-09] MEDS: PANTOPRAZOLE 40 MG VIAL IV SCH (08:27)
[2019-12-09] MEDS: ASCORBIC ACID 500 MG TABLET PO SCH ×2 (08:28→20:13)
[2019-12-09] MEDS: amLODIPine 10 MG TABLET PO SCH (08:28)
[2019-12-09] MEDS: hydrALAZINE 25 MG TABLET PO SCH ×3 (08:28→20:13)
[2019-12-09] MEDS: LINACLOTIDE 145 MCG CAPSULE PO SCH (08:33)
[2019-12-09] MEDS: FUROSEMIDE 40 MG/4 ML VIAL IV SCH ×2 (09:11→16:11)
[2019-12-09] MEDS: cefTRIAXone 1,000 MG in SYRINGE 1 EACH IV SCH (12:03)
[2019-12-09] MEDS: GABAPENTIN 300 MG CAPSULE PO SCH (20:13)
[2019-12-09] MEDS: ENOXAPARIN 30 MG/0.3 ML SYRINGE SUBCUT SCH (20:14)
[2019-12-10 04:04] LABS: ABG Base Excess -7.3 MMOL/L (-2.5-2.5); ABG HCO3 18.4 MMOL/L (20-26); ABG Oxygen Saturation 94.3 % (95-100); ABG PCO2 43.4 MM HG (35-48); ABG PH 7.258 (7.35-7.45); ABG PO2 79.7 MM HG (80-95); ABG TCO2 18.3 MMOL/L (23-27); Allen Test Positive; Pt O2 Delivery Device Ventilator
[2019-12-10 05:02] LABS: Basophils # 0.1 10*3/uL (0.0-0.2); Basophils % 0.6 % (0.0-0.8); Eosinophils # 0.8 10*3/uL (0.0-0.87); Eosinophils % 7.2 % (0.00-10.9); Hematocrit 28.4 VOL% (42.0-52.0); Hemoglobin 8.6 GM/DL (14.0-18.0); Immature Granulocytes % 2.3 %; Immature Granulocytes Absolute 0.25 #; Lymphocytes # 1.3 10*3/uL (1.4-4.0); Lymphocytes % 11.7 % (21.2-54.2); Mean Corpuscular HGB Conc 30.3 GM/DL (32-36); Mean Corpuscular Volume 92.2 FL (87-102); Mean Platelet Volume 9.2 FL (9.6-12.0); Monocytes % 11.9 % (1.7-12.7); Neutrophils % 66.3 % (38.7-73.9); Platelet Count 348 T/CUMM (130-400); Red Blood Count 3.08 MC/CUMM (3.8-5.5); Red Cell Distribution Width 14.3 % (9.3-17.3); White Blood Count 10.8 T/CUMM (4-12)
[2019-12-10 06:18] LABS: Calcium 8.9 MG/DL (8.5-10.1); Osmolality,Calculated 296.4 MOS/KG (273-304)
[2019-12-10] MEDS ORDERED: LIDOCAINE 1%/EPI INJ 20 ML VIAL ONE (06:40)
[2019-12-10] MEDS ORDERED: BUPIVACAINE 0.25% /EPI 10 ML VIAL ONE (06:40)
[2019-12-10] MEDS ORDERED: HEPARIN 5,000 UNIT/1 ML VIAL ONE (06:40)
[2019-12-10] MEDS ORDERED: MIDAZOLAM 2 MG/2 ML VIAL ONE (09:19)
[2019-12-10] MEDS: INSULIN REGULAR 100 UNIT/ML SUBCUT SCH ×4 (09:30→20:20)
[2019-12-10] MEDS: LINACLOTIDE 145 MCG CAPSULE PO SCH (10:25)
[2019-12-10] MEDS: ASCORBIC ACID 500 MG TABLET PO SCH ×2 (11:15→20:20)
[2019-12-10] MEDS: PANTOPRAZOLE 40 MG VIAL IV SCH (11:15)
[2019-12-10] MEDS: amLODIPine 10 MG TABLET PO SCH (11:16)
[2019-12-10] MEDS: ALBUMIN 25% 25 GM in PREMIX 1 EACH IV SCH ×2 (11:16→15:30)
[2019-12-10] MEDS: hydrALAZINE 25 MG TABLET PO SCH ×3 (11:16→20:19)
[2019-12-10] MEDS: FUROSEMIDE 40 MG/4 ML VIAL IV SCH ×2 (11:17→16:20)
[2019-12-10] MEDS: cefTRIAXone 1,000 MG in SYRINGE 1 EACH IV SCH (11:18)
[2019-12-10 15:24] LABS: Hepatitis B Surface Ab Result Negative; Hepatitis B Surface Ag Quant < 0.10 Index; Hepatitis B Surface Ag Result Negative (Negative)
[2019-12-10] MEDS: ENOXAPARIN 30 MG/0.3 ML SYRINGE SUBCUT SCH (20:20)
[2019-12-10] MEDS: GABAPENTIN 300 MG CAPSULE PO SCH (20:20)
[2019-12-11 03:23] LABS: ABG Base Excess -5.1 MMOL/L (-2.5-2.5); ABG HCO3 20.2 MMOL/L (20-26); ABG Oxygen Saturation 96.7 % (95-100); ABG PCO2 46.4 MM HG (35-48); ABG PH 7.276 (7.35-7.45); ABG PO2 96.5 MM HG (80-95); ABG TCO2 20.2 MMOL/L (23-27)
[2019-12-11 05:39] LABS: Calcium 8.8 MG/DL (8.5-10.1); Osmolality,Calculated 285.1 MOS/KG (273-304)
[2019-12-11] MEDS: INSULIN REGULAR 100 UNIT/ML SUBCUT SCH ×4 (07:54→22:10)
[2019-12-11] MEDS: PANTOPRAZOLE 40 MG VIAL IV SCH (08:12)
[2019-12-11] MEDS: ALBUMIN 25% 25 GM in PREMIX 1 EACH IV SCH ×2 (08:13→15:39)
[2019-12-11] MEDS: amLODIPine 10 MG TABLET PO SCH (08:14)
[2019-12-11] MEDS: hydrALAZINE 25 MG TABLET PO SCH ×3 (08:14→22:10)
[2019-12-11] MEDS: ASCORBIC ACID 500 MG TABLET PO SCH ×2 (08:14→22:10)
[2019-12-11] MEDS: LINACLOTIDE 145 MCG CAPSULE PO SCH (08:17)
[2019-12-11] MEDS: FUROSEMIDE 40 MG/4 ML VIAL IV SCH ×2 (10:18→18:18)
[2019-12-11] MEDS: cefTRIAXone 1,000 MG in SYRINGE 1 EACH IV SCH (10:28)
[2019-12-11] MEDS: GABAPENTIN 300 MG CAPSULE PO SCH (22:09)
[2019-12-11] MEDS: ENOXAPARIN 30 MG/0.3 ML SYRINGE SUBCUT SCH (22:10)
[2019-12-12 04:20] LABS: ABG Base Excess -5.9 MMOL/L (-2.5-2.5); ABG HCO3 21.3 MMOL/L (20-26); ABG PCO2 50.2 MM HG (35-48); ABG PH 7.246 (7.35-7.45); ABG PO2 90.2 MM HG (80-95); ABG TCO2 22.9 MMOL/L (23-27)
[2019-12-12 05:16] LABS: Basophils # 0.1 10*3/uL (0.0-0.2); Basophils % 0.5 % (0.0-0.8); Eosinophils # 0.7 10*3/uL (0.0-0.87); Eosinophils % 5.2 % (0.00-10.9); Hematocrit 25.2 VOL% (42.0-52.0); Hemoglobin 7.9 GM/DL (14.0-18.0); Immature Granulocytes % 3.1 %; Immature Granulocytes Absolute 0.39 #; Lymphocytes % 15.5 % (21.2-54.2); Mean Corpuscular HGB Conc 31.3 GM/DL (32-36); Mean Corpuscular Volume 90.3 FL (87-102); Mean Platelet Volume 8.9 FL (9.6-12.0); Monocytes % 12.9 % (1.7-12.7); Neutrophils % 62.8 % (38.7-73.9); Platelet Count 292 T/CUMM (130-400); Red Blood Count 2.79 MC/CUMM (3.8-5.5); Red Cell Distribution Width 14.3 % (9.3-17.3); White Blood Count 12.8 T/CUMM (4-12)
[2019-12-12 05:28] LABS: Osmolality,Calculated 294.7 MOS/KG (273-304)
[2019-12-12 05:44] LABS: Prealbumin 15.2 MG/DL (20-40)
[2019-12-12] MEDS: INSULIN REGULAR 100 UNIT/ML SUBCUT SCH ×3 (08:18→20:53)
[2019-12-12] MEDS: LINACLOTIDE 145 MCG CAPSULE PO SCH (08:19)
[2019-12-12] MEDS: ALBUMIN 25% 25 GM in PREMIX 1 EACH IV SCH ×2 (08:39→16:44)
[2019-12-12] MEDS: hydrALAZINE 25 MG TABLET PO SCH ×3 (08:40→20:52)
[2019-12-12] MEDS: amLODIPine 10 MG TABLET PO SCH (08:40)
[2019-12-12] MEDS: PANTOPRAZOLE 40 MG VIAL IV SCH (08:41)
[2019-12-12] MEDS: ASCORBIC ACID 500 MG TABLET PO SCH ×2 (08:41→20:52)
[2019-12-12] MEDS: FUROSEMIDE 40 MG/4 ML VIAL IV SCH ×2 (10:54→18:14)
[2019-12-12] MEDS: cefTRIAXone 1,000 MG in SYRINGE 1 EACH IV SCH (12:00)
[2019-12-12] MEDS ORDERED: HEPARIN 10,000 UNIT/10 ML VIAL IV SCH (15:30)
[2019-12-12] MEDS: GABAPENTIN 300 MG CAPSULE PO SCH (20:52)
[2019-12-12] MEDS: ENOXAPARIN 30 MG/0.3 ML SYRINGE SUBCUT SCH (20:52)
[2019-12-13 03:53] LABS: Allen Test Positive; Pt O2 Delivery Device Ventilator
[2019-12-13 03:54] LABS: ABG Base Excess -3.2 MMOL/L (-2.5-2.5); ABG HCO3 21.7 MMOL/L (20-26); ABG Oxygen Saturation 95.7 % (95-100); ABG PCO2 45.6 MM HG (35-48); ABG PH 7.311 (7.35-7.45); ABG PO2 84.9 MM HG (80-95); ABG TCO2 21.6 MMOL/L (23-27)
[2019-12-13 04:50] LABS: Basophils # 0.1 10*3/uL (0.0-0.2); Basophils % 0.4 % (0.0-0.8); Eosinophils # 0.7 10*3/uL (0.0-0.87); Eosinophils % 6.5 % (0.00-10.9); Hematocrit 25.2 VOL% (42.0-52.0); Hemoglobin 7.9 GM/DL (14.0-18.0); Immature Granulocytes % 3.6 %; Immature Granulocytes Absolute 0.41 #; Lymphocytes # 1.4 10*3/uL (1.4-4.0); Lymphocytes % 12.3 % (21.2-54.2); Mean Corpuscular HGB Conc 31.3 GM/DL (32-36); Mean Corpuscular Volume 89.4 FL (87-102); Mean Platelet Volume 8.9 FL (9.6-12.0); Monocytes % 12.1 % (1.7-12.7); Neutrophils % 65.1 % (38.7-73.9); Platelet Count 272 T/CUMM (130-400); Red Blood Count 2.82 MC/CUMM (3.8-5.5); White Blood Count 11.3 T/CUMM (4-12)
[2019-12-13 05:21] LABS: Calcium 9.1 MG/DL (8.5-10.1); Osmolality,Calculated 278.4 MOS/KG (273-304)
[2019-12-13] MEDS: PANTOPRAZOLE 40 MG VIAL IV SCH (08:24)
[2019-12-13] MEDS: ASCORBIC ACID 500 MG TABLET PO SCH ×2 (08:25→20:58)
[2019-12-13] MEDS: amLODIPine 10 MG TABLET PO SCH (08:25)
[2019-12-13] MEDS: hydrALAZINE 25 MG TABLET PO SCH ×3 (08:25→20:58)
[2019-12-13] MEDS: INSULIN REGULAR 100 UNIT/ML SUBCUT SCH ×2 (08:26→21:37)
[2019-12-13] MEDS: LINACLOTIDE 145 MCG CAPSULE PO SCH (08:26)
[2019-12-13] MEDS: ALBUMIN 25% 25 GM in PREMIX 1 EACH IV SCH ×2 (08:26→15:51)
[2019-12-13] MEDS: FUROSEMIDE 40 MG/4 ML VIAL IV SCH ×2 (09:28→16:53)
[2019-12-13] MEDS: ENOXAPARIN 30 MG/0.3 ML SYRINGE SUBCUT SCH (20:58)
[2019-12-13] MEDS: GABAPENTIN 300 MG CAPSULE PO SCH (20:58)
[2019-12-14 04:27] LABS: ABG Base Excess -6.2 MMOL/L (-2.5-2.5); ABG HCO3 19.3 MMOL/L (20-26); ABG Oxygen Saturation 98.3 % (95-100); ABG PCO2 45.6 MM HG (35-48); ABG PH 7.264 (7.35-7.45); ABG TCO2 19.5 MMOL/L (23-27); Allen Test Positive; Pt O2 Delivery Device Ventilator
[2019-12-14 05:23] LABS: Basophils # 0.1 10*3/uL (0.0-0.2); Basophils % 0.5 % (0.0-0.8); Eosinophils # 0.9 10*3/uL (0.0-0.87); Eosinophils % 7.1 % (0.00-10.9); Hematocrit 25.6 VOL% (42.0-52.0); Hemoglobin 8.2 GM/DL (14.0-18.0); Lymphocytes # 1.8 10*3/uL (1.4-4.0); Lymphocytes % 14.3 % (21.2-54.2); Mean Corpuscular Volume 88.6 FL (87-102); Mean Platelet Volume 8.9 FL (9.6-12.0); Monocytes % 12.8 % (1.7-12.7); Neutrophils % 61.3 % (38.7-73.9); Platelet Count 265 T/CUMM (130-400); Red Blood Count 2.89 MC/CUMM (3.8-5.5); Red Cell Distribution Width 13.8 % (9.3-17.3); White Blood Count 12.6 T/CUMM (4-12)
[2019-12-14 05:43] LABS: Calcium 9.4 MG/DL (8.5-10.1); Osmolality,Calculated 280.5 MOS/KG (273-304)
[2019-12-14] MEDS: ALBUMIN 25% 25 GM in PREMIX 1 EACH IV SCH ×2 (08:37→15:04)
[2019-12-14] MEDS: PANTOPRAZOLE 40 MG VIAL IV SCH (08:44)
[2019-12-14] MEDS: hydrALAZINE 25 MG TABLET PO SCH ×3 (08:49→21:44)
[2019-12-14] MEDS: amLODIPine 10 MG TABLET PO SCH (08:49)
[2019-12-14] MEDS: ASCORBIC ACID 500 MG TABLET PO SCH ×2 (08:49→21:44)
[2019-12-14] MEDS: LINACLOTIDE 145 MCG CAPSULE PO SCH (08:50)
[2019-12-14] MEDS: INSULIN REGULAR 100 UNIT/ML SUBCUT SCH ×2 (08:51→22:03)
[2019-12-14] MEDS: FUROSEMIDE 40 MG/4 ML VIAL IV SCH ×2 (10:11→16:49)
[2019-12-14] MEDS: hydrALAZINE 20 MG/1 ML VIAL IV PRN (18:31)
[2019-12-14] MEDS: GABAPENTIN 300 MG CAPSULE PO SCH (21:45)
[2019-12-14] MEDS: ENOXAPARIN 30 MG/0.3 ML SYRINGE SUBCUT SCH (21:45)
[2019-12-15] MEDS: hydrALAZINE 20 MG/1 ML VIAL IV PRN ×2 (00:35→23:25)
[2019-12-15 03:59] LABS: ABG Base Excess -2.3 MMOL/L (-2.5-2.5); ABG HCO3 24.1 MMOL/L (20-26); ABG PCO2 48.7 MM HG (35-48); ABG PH 7.312 (7.35-7.45); ABG PO2 106.7 MM HG (80-95); ABG TCO2 25.6 MMOL/L (23-27); Allen Test Positive; Pt O2 Delivery Device Ventilator
[2019-12-15 05:38] LABS: Calcium 8.7 MG/DL (8.5-10.1); Osmolality,Calculated 274.5 MOS/KG (273-304)
[2019-12-15] MEDS: PANTOPRAZOLE 40 MG VIAL IV SCH (08:04)
[2019-12-15] MEDS: ASCORBIC ACID 500 MG TABLET PO SCH ×2 (08:04→21:34)
[2019-12-15] MEDS: hydrALAZINE 25 MG TABLET PO SCH ×3 (08:05→21:34)
[2019-12-15] MEDS: INSULIN REGULAR 100 UNIT/ML SUBCUT SCH ×2 (08:05→21:38)
[2019-12-15] MEDS: amLODIPine 10 MG TABLET PO SCH (08:05)
[2019-12-15] MEDS: LINACLOTIDE 145 MCG CAPSULE PO SCH (08:07)
[2019-12-15] MEDS: methylPREDNISolone SOD SUC 40 MG/1 ML VIAL IV SCH ×2 (16:48→23:35)
[2019-12-15] MEDS: ENOXAPARIN 30 MG/0.3 ML SYRINGE SUBCUT SCH (21:34)
[2019-12-15] MEDS: GABAPENTIN 300 MG CAPSULE PO SCH (21:34)
[2019-12-16 04:35] LABS: ABG Base Excess -5.3 MMOL/L (-2.5-2.5); ABG HCO3 20.1 MMOL/L (20-26); ABG PCO2 46.3 MM HG (35-48); ABG PH 7.276 (7.35-7.45); ABG TCO2 19.7 MMOL/L (23-27); Allen Test Positive; Pt O2 Delivery Device Ventilator
[2019-12-16] MEDS: hydrALAZINE 20 MG/1 ML VIAL IV PRN (06:25)
[2019-12-16 07:20] LABS: Calcium 9.9 MG/DL (8.5-10.1); Osmolality,Calculated 272.1 MOS/KG (273-304)
[2019-12-16] MEDS: LINACLOTIDE 145 MCG CAPSULE PO SCH (08:44)
[2019-12-16] MEDS: methylPREDNISolone SOD SUC 40 MG/1 ML VIAL IV SCH ×2 (08:46→17:12)
[2019-12-16] MEDS: amLODIPine 10 MG TABLET PO SCH (08:46)
[2019-12-16] MEDS: PANTOPRAZOLE 40 MG VIAL IV SCH (08:46)
[2019-12-16] MEDS: ASCORBIC ACID 500 MG TABLET PO SCH ×2 (08:46→20:45)
[2019-12-16] MEDS: hydrALAZINE 25 MG TABLET PO SCH ×3 (08:46→20:45)
[2019-12-16] MEDS: INSULIN REGULAR 100 UNIT/ML SUBCUT SCH ×2 (09:18→20:57)
[2019-12-16] MEDS: GABAPENTIN 300 MG CAPSULE PO SCH (20:45)
[2019-12-16] MEDS: ENOXAPARIN 30 MG/0.3 ML SYRINGE SUBCUT SCH (20:46)
[2019-12-17] MEDS: methylPREDNISolone SOD SUC 40 MG/1 ML VIAL IV SCH ×4 (00:23→23:35)
[2019-12-17 04:18] LABS: Basophils # 0.1 10*3/uL (0.0-0.2); Basophils % 0.3 % (0.0-0.8); Eosinophils # 0.1 10*3/uL (0.0-0.87); Eosinophils % 0.4 % (0.00-10.9); Hematocrit 23.5 VOL% (42.0-52.0); Hemoglobin 7.6 GM/DL (14.0-18.0); Immature Granulocytes % 6.4 %; Immature Granulocytes Absolute 0.98 #; Lymphocytes # 1.1 10*3/uL (1.4-4.0); Lymphocytes % 6.8 % (21.2-54.2); Mean Corpuscular HGB Conc 32.3 GM/DL (32-36); Mean Corpuscular Volume 87.7 FL (87-102); Mean Platelet Volume 8.9 FL (9.6-12.0); Monocytes % 6.2 % (1.7-12.7); Neutrophils % 79.9 % (38.7-73.9); Platelet Count 274 T/CUMM (130-400); Red Blood Count 2.68 MC/CUMM (3.8-5.5); Red Cell Distribution Width 13.7 % (9.3-17.3); White Blood Count 15.4 T/CUMM (4-12)
[2019-12-17 04:40] LABS: Osmolality,Calculated 278.5 MOS/KG (273-304)
[2019-12-17 05:00] LABS: ABG Base Excess -0.8 MMOL/L (-2.5-2.5); ABG HCO3 25.2 MMOL/L (20-26); ABG Oxygen Saturation 86.2 % (95-100); ABG PCO2 47.8 MM HG (35-48); ABG PH 7.339 (7.35-7.45); ABG PO2 56.4 MM HG (80-95); ABG TCO2 26.6 MMOL/L (23-27); Allen Test Positive; Pt O2 Delivery Device Ventilator
[2019-12-17 06:11] LABS: Eosinophils 3 % (0-10); Lymphocytes 9 % (20-55); Segmented Neutrophils 83 % (50-85); Total Cells Counted 100
[2019-12-17 06:12] LABS: Anisocytosis 1+; Hypochromasia 1+; Microcytosis 1+; Platelet Estimate Adequate
[2019-12-17] MEDS: INSULIN REGULAR 100 UNIT/ML SUBCUT SCH ×2 (08:23→23:46)
[2019-12-17] MEDS: ATORVASTATIN 40 MG TABLET PO SCH (08:24)
[2019-12-17] MEDS: amLODIPine 10 MG TABLET PO SCH (08:25)
[2019-12-17] MEDS: LINACLOTIDE 145 MCG CAPSULE PO SCH (08:25)
[2019-12-17] MEDS: hydrALAZINE 25 MG TABLET PO SCH (08:25)
[2019-12-17] MEDS: PANTOPRAZOLE 40 MG VIAL IV SCH (08:28)
[2019-12-17] MEDS: SERTRALINE 50 MG TABLET PO SCH (08:29)
[2019-12-17] MEDS: METOPROLOL TARTRATE 25 MG TABLET PO SCH ×2 (12:17→20:06)
[2019-12-17] MEDS: ASCORBIC ACID 500 MG TABLET PO SCH ×2 (12:20→20:06)
[2019-12-17] MEDS: CEFEPIME 1,000 MG in SODIUM CHLORIDE 0.9% 100 ML IV SCH (12:21)
[2019-12-17] MEDS ORDERED: LEVOFLOXACIN INJ 750 MG in PREMIX 1 EACH IV ONE (13:00)
[2019-12-17] MEDS ORDERED: MIDAZOLAM 2 MG/2 ML VIAL IV ONE ×2 (14:18→21:57)
[2019-12-17] MEDS: ENOXAPARIN 30 MG/0.3 ML SYRINGE SUBCUT SCH (20:05)
[2019-12-17] MEDS: GABAPENTIN 300 MG CAPSULE PO SCH (20:07)
[2019-12-17] MEDS: hydrALAZINE 20 MG/1 ML VIAL IV PRN (23:50)
[2019-12-18 04:25] LABS: ABG Base Excess -3.9 MMOL/L (-2.5-2.5); ABG HCO3 21.2 MMOL/L (20-26); ABG Oxygen Saturation 98.9 % (95-100); ABG PCO2 40.6 MM HG (35-48); ABG PH 7.336 (7.35-7.45); ABG TCO2 19.6 MMOL/L (23-27); Allen Test Positive; Pt O2 Delivery Device Ventilator
[2019-12-18 05:35] LABS: Basophils # 0.1 10*3/uL (0.0-0.2); Basophils % 0.4 % (0.0-0.8); Eosinophils # 0.1 10*3/uL (0.0-0.87); Eosinophils % 0.4 % (0.00-10.9); Hematocrit 23.5 VOL% (42.0-52.0); Hemoglobin 7.9 GM/DL (14.0-18.0); Immature Granulocytes % 7.6 %; Immature Granulocytes Absolute 1.27 #; Lymphocytes # 1.1 10*3/uL (1.4-4.0); Lymphocytes % 6.8 % (21.2-54.2); Mean Corpuscular HGB Conc 33.6 GM/DL (32-36); Mean Corpuscular Volume 86.7 FL (87-102); Mean Platelet Volume 8.9 FL (9.6-12.0); Monocytes % 6.1 % (1.7-12.7); Neutrophils % 78.7 % (38.7-73.9); Platelet Count 299 T/CUMM (130-400); Red Blood Count 2.71 MC/CUMM (3.8-5.5); Red Cell Distribution Width 13.7 % (9.3-17.3); White Blood Count 16.8 T/CUMM (4-12)
[2019-12-18 05:42] LABS: Calcium 9.4 MG/DL (8.5-10.1); Osmolality,Calculated 281.1 MOS/KG (273-304)
[2019-12-18 06:35] LABS: Anisocytosis 1+; Hypochromasia 1+; Lymphocytes 4 % (20-55); Microcytosis 1+; Myelocytes 4 %; Segmented Neutrophils 87 % (50-85); Total Cells Counted 100
[2019-12-18 06:36] LABS: Platelet Estimate Adequate
[2019-12-18] MEDS: INSULIN REGULAR 100 UNIT/ML SUBCUT SCH ×3 (06:43→17:25)
[2019-12-18] MEDS: methylPREDNISolone SOD SUC 40 MG/1 ML VIAL IV SCH ×3 (10:03→23:56)
[2019-12-18] MEDS: LINACLOTIDE 145 MCG CAPSULE PO SCH (10:03)
[2019-12-18] MEDS: ASCORBIC ACID 500 MG TABLET PO SCH ×2 (10:05→21:15)
[2019-12-18] MEDS: SERTRALINE 50 MG TABLET PO SCH (10:05)
[2019-12-18] MEDS: PANTOPRAZOLE 40 MG VIAL IV SCH (10:06)
[2019-12-18] MEDS: amLODIPine 10 MG TABLET PO SCH (10:06)
[2019-12-18] MEDS: ATORVASTATIN 40 MG TABLET PO SCH (10:06)
[2019-12-18] MEDS: METOPROLOL TARTRATE 25 MG TABLET PO SCH ×2 (10:06→21:14)
[2019-12-18] MEDS: CEFEPIME 1,000 MG in SODIUM CHLORIDE 0.9% 100 ML IV SCH (12:27)
[2019-12-18] MEDS ORDERED: VANCOMYCIN INJ 2,500 MG in SODIUM CHLORIDE 0.9% 500 ML IV ONE (18:30)
[2019-12-18] MEDS: ENOXAPARIN 30 MG/0.3 ML SYRINGE SUBCUT SCH (21:14)
[2019-12-18] MEDS: GABAPENTIN 300 MG CAPSULE PO SCH (21:15)
[2019-12-19] MEDS: INSULIN REGULAR 100 UNIT/ML SUBCUT SCH ×4 (00:14→17:37)
[2019-12-19 03:07] LABS: Basophils # 0.1 10*3/uL (0.0-0.2); Basophils % 0.3 % (0.0-0.8); Eosinophils % 0.2 % (0.00-10.9); Hematocrit 25.9 VOL% (42.0-52.0); Hemoglobin 8.3 GM/DL (14.0-18.0); Immature Granulocytes % 8.6 %; Immature Granulocytes Absolute 1.55 #; Lymphocytes # 0.9 10*3/uL (1.4-4.0); Lymphocytes % 4.8 % (21.2-54.2); Monocytes % 5.3 % (1.7-12.7); Neutrophils % 80.8 % (38.7-73.9); Platelet Count 329 T/CUMM (130-400); Red Blood Count 2.91 MC/CUMM (3.8-5.5); Red Cell Distribution Width 13.6 % (9.3-17.3)
[2019-12-19 03:30] LABS: Prealbumin 27.7 MG/DL (20-40)
[2019-12-19 03:38] LABS: Calcium 8.9 MG/DL (8.5-10.1); Osmolality,Calculated 285.1 MOS/KG (273-304)
[2019-12-19 04:21] LABS: ABG Base Excess -7.6 MMOL/L (-2.5-2.5); ABG HCO3 18.2 MMOL/L (20-26); ABG Oxygen Saturation 98.7 % (95-100); ABG PCO2 37.6 MM HG (35-48); ABG PH 7.294 (7.35-7.45); ABG TCO2 17.2 MMOL/L (23-27); Allen Test Positive; Pt O2 Delivery Device Ventilator
[2019-12-19 04:29] LABS: Band Neutrophils 1 % (0-10); Lymphocytes 6 % (20-55); Metamyelocytes 1 %; Myelocytes 3 %; Segmented Neutrophils 83 % (50-85); Total Cells Counted 100
[2019-12-19 04:30] LABS: Anisocytosis 1+; Platelet Estimate Normal
[2019-12-19] MEDS: methylPREDNISolone SOD SUC 40 MG/1 ML VIAL IV SCH ×2 (08:12→15:57)
[2019-12-19] MEDS: SERTRALINE 50 MG TABLET PO SCH (08:13)
[2019-12-19] MEDS: ATORVASTATIN 40 MG TABLET PO SCH (08:13)
[2019-12-19] MEDS: ASCORBIC ACID 500 MG TABLET PO SCH ×2 (08:13→21:54)
[2019-12-19] MEDS: METOPROLOL TARTRATE 25 MG TABLET PO SCH ×2 (08:13→21:55)
[2019-12-19] MEDS: amLODIPine 10 MG TABLET PO SCH (08:13)
[2019-12-19] MEDS: LINACLOTIDE 145 MCG CAPSULE PO SCH (08:14)
[2019-12-19] MEDS: PANTOPRAZOLE 40 MG VIAL IV SCH (08:18)
[2019-12-19] MEDS: CEFEPIME 1,000 MG in SODIUM CHLORIDE 0.9% 100 ML IV SCH (12:01)
[2019-12-19] MEDS: LEVOFLOXACIN INJ 500 MG in PREMIX 1 EACH IV SCH (13:57)
[2019-12-19] MEDS ORDERED: VANCOMYCIN INJ 1,000 MG in SODIUM CHLORIDE 0.9% 250 ML IV ONE (16:00)
[2019-12-19] MEDS ORDERED: VANCOMYCIN INJ 1,000 MG in SODIUM CHLORIDE 0.9% 250 ML IV PRN (18:00)
[2019-12-19] MEDS: GABAPENTIN 300 MG CAPSULE PO SCH (21:54)
[2019-12-20] MEDS: methylPREDNISolone SOD SUC 40 MG/1 ML VIAL IV SCH ×3 (00:07→16:01)
[2019-12-20] MEDS: INSULIN REGULAR 100 UNIT/ML SUBCUT SCH ×4 (00:08→17:23)
[2019-12-20 03:52] LABS: ABG Base Excess -3.9 MMOL/L (-2.5-2.5); ABG Oxygen Saturation 89.9 % (95-100); ABG PH 7.303 (7.35-7.45); ABG PO2 66.7 MM HG (80-95)
[2019-12-20 05:25] LABS: Basophils # 0.1 10*3/uL (0.0-0.2); Basophils % 0.2 % (0.0-0.8); Eosinophils % 0.1 % (0.00-10.9); Hematocrit 24.9 VOL% (42.0-52.0); Immature Granulocytes % 7.9 %; Immature Granulocytes Absolute 1.62 #; Lymphocytes # 0.9 10*3/uL (1.4-4.0); Lymphocytes % 4.4 % (21.2-54.2); Mean Corpuscular HGB Conc 32.1 GM/DL (32-36); Mean Corpuscular Volume 88.9 FL (87-102); Mean Platelet Volume 9.2 FL (9.6-12.0); Monocytes % 6.8 % (1.7-12.7); Neutrophils % 80.6 % (38.7-73.9); Platelet Count 326 T/CUMM (130-400); Red Cell Distribution Width 13.4 % (9.3-17.3); White Blood Count 20.6 T/CUMM (4-12)
[2019-12-20 05:44] LABS: Calcium 8.6 MG/DL (8.5-10.1); Osmolality,Calculated 276.9 MOS/KG (273-304)
[2019-12-20 05:57] LABS: Band Neutrophils 4 % (0-10); Eosinophils 2 % (0-10); Hypochromasia 1+; Lymphocytes 6 % (20-55); Metamyelocytes 2 %; Microcytosis Slight; Myelocytes 2 %; Ovalocytes Slight; Segmented Neutrophils 78 % (50-85); Total Cells Counted 100
[2019-12-20 05:58] LABS: Platelet Estimate Normal
[2019-12-20] MEDS ORDERED: MIDAZOLAM 10 MG/2 ML VIAL IV ONE (07:30)
[2019-12-20] MEDS: LINACLOTIDE 145 MCG CAPSULE PO SCH (08:56)
[2019-12-20] MEDS: ASCORBIC ACID 500 MG TABLET PO SCH ×2 (08:57→20:42)
[2019-12-20] MEDS: SERTRALINE 50 MG TABLET PO SCH (08:57)
[2019-12-20] MEDS: ATORVASTATIN 40 MG TABLET PO SCH (08:58)
[2019-12-20] MEDS: PANTOPRAZOLE 40 MG VIAL IV SCH (09:05)
[2019-12-20] MEDS: amLODIPine 10 MG TABLET PO SCH (09:06)
[2019-12-20] MEDS: METOPROLOL TARTRATE 25 MG TABLET PO SCH ×2 (09:06→20:43)
[2019-12-20] MEDS: CEFEPIME 1,000 MG in SODIUM CHLORIDE 0.9% 100 ML IV SCH (11:59)
[2019-12-20] MEDS: HALOPERIDOL 5 MG/ML AMP IM PRN (20:40)
[2019-12-20] MEDS: ENOXAPARIN 30 MG/0.3 ML SYRINGE SUBCUT SCH (20:43)
[2019-12-20] MEDS: GABAPENTIN 300 MG CAPSULE PO SCH (20:43)
[2019-12-21] MEDS: methylPREDNISolone SOD SUC 40 MG/1 ML VIAL IV SCH ×3 (00:57→17:19)
[2019-12-21] MEDS: INSULIN REGULAR 100 UNIT/ML SUBCUT SCH ×4 (00:57→17:26)
[2019-12-21] MEDS: HALOPERIDOL 5 MG/ML AMP IM PRN (01:15)
[2019-12-21 03:00] LABS: ABG Base Excess -6.5 MMOL/L (-2.5-2.5); ABG Oxygen Saturation 98.2 % (95-100); ABG PCO2 27.7 MM HG (35-48); ABG PH 7.405 (7.35-7.45); ABG TCO2 16.4 MMOL/L (23-27); Allen Test Positive; Pt O2 Delivery Device Ventilator
[2019-12-21 04:05] LABS: Calcium 8.2 MG/DL (8.5-10.1); Osmolality,Calculated 283.8 MOS/KG (273-304)
[2019-12-21 04:16] LABS: Basophils % 0.2 % (0.0-0.8); Eosinophils # 0.1 10*3/uL (0.0-0.87); Eosinophils % 0.4 % (0.00-10.9); Hematocrit 22.4 VOL% (42.0-52.0); Hemoglobin 7.5 GM/DL (14.0-18.0); Immature Granulocytes % 7.1 %; Immature Granulocytes Absolute 1.41 #; Lymphocytes # 0.8 10*3/uL (1.4-4.0); Lymphocytes % 4.1 % (21.2-54.2); Mean Corpuscular HGB Conc 33.5 GM/DL (32-36); Mean Corpuscular Volume 86.5 FL (87-102); Mean Platelet Volume 9.1 FL (9.6-12.0); Monocytes % 5.4 % (1.7-12.7); Neutrophils % 82.8 % (38.7-73.9); Platelet Count 315 T/CUMM (130-400); Red Blood Count 2.59 MC/CUMM (3.8-5.5); Red Cell Distribution Width 13.3 % (9.3-17.3)
[2019-12-21 05:35] LABS: Band Neutrophils 2 % (0-10); Hypochromasia 1+; Lymphocytes 5 % (20-55); Platelet Estimate Adequate; Segmented Neutrophils 86 % (50-85); Total Cells Counted 100
[2019-12-21 05:36] LABS: Microcytosis Slight
[2019-12-21] MEDS: LINACLOTIDE 145 MCG CAPSULE PO SCH (08:26)
[2019-12-21] MEDS: METOPROLOL TARTRATE 25 MG TABLET PO SCH ×2 (08:28→20:08)
[2019-12-21] MEDS: ATORVASTATIN 40 MG TABLET PO SCH (08:28)
[2019-12-21] MEDS: SERTRALINE 50 MG TABLET PO SCH (08:28)
[2019-12-21] MEDS: ASCORBIC ACID 500 MG TABLET PO SCH ×2 (08:28→20:08)
[2019-12-21] MEDS: PANTOPRAZOLE 40 MG VIAL IV SCH (08:29)
[2019-12-21] MEDS: amLODIPine 10 MG TABLET PO SCH (08:29)
[2019-12-21] MEDS: CEFEPIME 1,000 MG in SODIUM CHLORIDE 0.9% 100 ML IV SCH (11:52)
[2019-12-21] MEDS: LEVOFLOXACIN INJ 500 MG in PREMIX 1 EACH IV SCH (13:10)
[2019-12-21] MEDS ORDERED: VANCOMYCIN INJ 1,000 MG in SODIUM CHLORIDE 0.9% 250 ML IV ONE (17:00)
[2019-12-21] MEDS: ENOXAPARIN 30 MG/0.3 ML SYRINGE SUBCUT SCH (20:08)
[2019-12-21] MEDS: GABAPENTIN 300 MG CAPSULE PO SCH (20:08)
[2019-12-22] MEDS: methylPREDNISolone SOD SUC 40 MG/1 ML VIAL IV SCH ×3 (00:07→16:54)
[2019-12-22] MEDS: INSULIN REGULAR 100 UNIT/ML SUBCUT SCH ×4 (00:15→18:35)
[2019-12-22] MEDS: HALOPERIDOL 5 MG/ML AMP IM PRN (01:59)
[2019-12-22 03:40] LABS: Basophils % 0.2 % (0.0-0.8); Eosinophils % 0.2 % (0.00-10.9); Hematocrit 24.9 VOL% (42.0-52.0); Hemoglobin 8.4 GM/DL (14.0-18.0); Immature Granulocytes % 9.6 %; Immature Granulocytes Absolute 1.89 #; Lymphocytes # 0.8 10*3/uL (1.4-4.0); Lymphocytes % 4.1 % (21.2-54.2); Mean Corpuscular HGB Conc 33.7 GM/DL (32-36); Mean Corpuscular Volume 85.6 FL (87-102); Mean Platelet Volume 9.2 FL (9.6-12.0); Monocytes % 6.1 % (1.7-12.7); Neutrophils % 79.8 % (38.7-73.9); Platelet Count 337 T/CUMM (130-400); Red Blood Count 2.91 MC/CUMM (3.8-5.5); Red Cell Distribution Width 13.4 % (9.3-17.3); White Blood Count 19.7 T/CUMM (4-12)
[2019-12-22 04:01] LABS: Prealbumin 38.5 MG/DL (20-40)
[2019-12-22 04:07] LABS: ABG Base Excess -2.8 MMOL/L (-2.5-2.5); ABG Oxygen Saturation 94.2 % (95-100); ABG PCO2 41.7 MM HG (35-48); ABG PH 7.344 (7.35-7.45); ABG TCO2 20.9 MMOL/L (23-27); Allen Test Positive; Pt O2 Delivery Device Ventilator
[2019-12-22 04:12] LABS: Band Neutrophils 4 % (0-10); Lymphocytes 4 % (20-55); Osmolality,Calculated 277.7 MOS/KG (273-304); Platelet Estimate Adequate; Segmented Neutrophils 86 % (50-85); Total Cells Counted 100
[2019-12-22 04:13] LABS: Hypochromasia 1+; Microcytosis Slight; Ovalocytes Slight
[2019-12-22] MEDS: LINACLOTIDE 145 MCG CAPSULE PO SCH (09:51)
[2019-12-22] MEDS: ATORVASTATIN 40 MG TABLET PO SCH (09:53)
[2019-12-22] MEDS: ASCORBIC ACID 500 MG TABLET PO SCH ×2 (09:53→22:17)
[2019-12-22] MEDS: SERTRALINE 50 MG TABLET PO SCH (09:53)
[2019-12-22] MEDS: METOPROLOL TARTRATE 25 MG TABLET PO SCH ×2 (09:53→22:17)
[2019-12-22] MEDS: amLODIPine 10 MG TABLET PO SCH (09:53)
[2019-12-22] MEDS: PANTOPRAZOLE 40 MG VIAL IV SCH (09:54)
[2019-12-22] MEDS: DEXMEDETOMIDINE 200 MCG in SODIUM CHLORIDE 0.9% 48 ML IV PRN ×2 (10:23→15:15)
[2019-12-22] MEDS: CEFEPIME 1,000 MG in SODIUM CHLORIDE 0.9% 100 ML IV SCH (16:56)
[2019-12-22] MEDS: DEXMEDETOMIDINE 400 MCG in SODIUM CHLORIDE 0.9% 96 ML IV PRN ×2 (18:19→23:45)
[2019-12-22] MEDS: GABAPENTIN 300 MG CAPSULE PO SCH (22:16)
[2019-12-22] MEDS: ENOXAPARIN 30 MG/0.3 ML SYRINGE SUBCUT SCH (22:20)
[2019-12-23] MEDS: INSULIN REGULAR 100 UNIT/ML SUBCUT SCH ×4 (01:23→19:15)
[2019-12-23] MEDS: methylPREDNISolone SOD SUC 40 MG/1 ML VIAL IV SCH ×3 (01:27→19:13)
[2019-12-23 04:35] LABS: Allen Test Positive; Pt O2 Delivery Device Ventilator
[2019-12-23 04:36] LABS: ABG Base Excess -6.4 MMOL/L (-2.5-2.5); ABG HCO3 19.1 MMOL/L (20-26); ABG Oxygen Saturation 98.4 % (95-100); ABG PCO2 33.9 MM HG (35-48); ABG PH 7.346 (7.35-7.45); ABG TCO2 17.3 MMOL/L (23-27)
[2019-12-23 04:36] LABS: Basophils % 0.2 % (0.0-0.8); Eosinophils # 0.1 10*3/uL (0.0-0.87); Eosinophils % 0.3 % (0.00-10.9); Hematocrit 25.3 VOL% (42.0-52.0); Hemoglobin 8.3 GM/DL (14.0-18.0); Immature Granulocytes % 8.8 %; Immature Granulocytes Absolute 1.42 #; Lymphocytes # 0.8 10*3/uL (1.4-4.0); Lymphocytes % 5.2 % (21.2-54.2); Mean Corpuscular HGB Conc 32.8 GM/DL (32-36); Mean Corpuscular Volume 86.1 FL (87-102); Mean Platelet Volume 9.7 FL (9.6-12.0); Monocytes % 6.8 % (1.7-12.7); Neutrophils % 78.7 % (38.7-73.9); Platelet Count 367 T/CUMM (130-400); Red Blood Count 2.94 MC/CUMM (3.8-5.5); Red Cell Distribution Width 13.6 % (9.3-17.3); White Blood Count 16.1 T/CUMM (4-12)
[2019-12-23] MEDS: DEXMEDETOMIDINE 400 MCG in SODIUM CHLORIDE 0.9% 96 ML IV PRN ×4 (04:45→21:42)
[2019-12-23 04:54] LABS: Calcium 8.6 MG/DL (8.5-10.1); Osmolality,Calculated 282.9 MOS/KG (273-304)
[2019-12-23 05:42] LABS: Eosinophils 1 % (0-10); Hypochromasia Slight; Lymphocytes 9 % (20-55); Platelet Estimate Normal; Segmented Neutrophils 88 % (50-85); Total Cells Counted 100
[2019-12-23] MEDS: LINACLOTIDE 145 MCG CAPSULE PO SCH (08:35)
[2019-12-23] MEDS: ASCORBIC ACID 500 MG TABLET PO SCH ×2 (08:36→21:44)
[2019-12-23] MEDS: amLODIPine 10 MG TABLET PO SCH (08:36)
[2019-12-23] MEDS: ATORVASTATIN 40 MG TABLET PO SCH (08:36)
[2019-12-23] MEDS: SERTRALINE 50 MG TABLET PO SCH (08:38)
[2019-12-23] MEDS: METOPROLOL TARTRATE 25 MG TABLET PO SCH ×2 (08:38→21:48)
[2019-12-23] MEDS: PANTOPRAZOLE 40 MG VIAL IV SCH (08:45)
[2019-12-23] MEDS: LEVOFLOXACIN INJ 500 MG in PREMIX 1 EACH IV SCH (14:30)
[2019-12-23] MEDS: CEFEPIME 1,000 MG in SODIUM CHLORIDE 0.9% 100 ML IV SCH (17:00)
[2019-12-23] MEDS ORDERED: VANCOMYCIN INJ 1,000 MG in SODIUM CHLORIDE 0.9% 250 ML IV ONE (17:00)
[2019-12-23] MEDS: GABAPENTIN 300 MG CAPSULE PO SCH (21:44)
[2019-12-23] MEDS: ENOXAPARIN 30 MG/0.3 ML SYRINGE SUBCUT SCH (21:44)
[2019-12-24] MEDS: INSULIN REGULAR 100 UNIT/ML SUBCUT SCH ×4 (01:32→20:34)
[2019-12-24] MEDS: methylPREDNISolone SOD SUC 40 MG/1 ML VIAL IV SCH ×2 (01:34→08:01)
[2019-12-24] MEDS: DEXMEDETOMIDINE 400 MCG in SODIUM CHLORIDE 0.9% 96 ML IV PRN ×3 (02:54→13:59)
[2019-12-24 03:32] LABS: ABG Base Excess -2.7 MMOL/L (-2.5-2.5); ABG HCO3 21.8 MMOL/L (20-26); ABG Oxygen Saturation 98.2 % (95-100); ABG PCO2 36.3 MM HG (35-48); ABG PH 7.396 (7.35-7.45); ABG PO2 159.1 MM HG (80-95); ABG TCO2 22.9 MMOL/L (23-27); Allen Test Positive; Pt O2 Delivery Device Ventilator
[2019-12-24 04:19] LABS: Calcium 8.3 MG/DL (8.5-10.1); Osmolality,Calculated 280.5 MOS/KG (273-304)
[2019-12-24 04:58] LABS: Basophils # 0.1 10*3/uL (0.0-0.2); Basophils % 0.3 % (0.0-0.8); Eosinophils # 0.1 10*3/uL (0.0-0.87); Eosinophils % 0.5 % (0.00-10.9); Hematocrit 25.5 VOL% (42.0-52.0); Hemoglobin 8.5 GM/DL (14.0-18.0); Immature Granulocytes % 8.4 %; Immature Granulocytes Absolute 1.64 #; Lymphocytes # 1.1 10*3/uL (1.4-4.0); Lymphocytes % 5.5 % (21.2-54.2); Mean Corpuscular HGB Conc 33.3 GM/DL (32-36); Mean Corpuscular Volume 83.6 FL (87-102); Mean Platelet Volume 9.8 FL (9.6-12.0); Monocytes % 7.8 % (1.7-12.7); Neutrophils % 77.5 % (38.7-73.9); Platelet Count 372 T/CUMM (130-400); Red Blood Count 3.05 MC/CUMM (3.8-5.5); Red Cell Distribution Width 13.5 % (9.3-17.3); White Blood Count 19.6 T/CUMM (4-12)
[2019-12-24 05:44] LABS: Band Neutrophils 2 % (0-10); Eosinophils 2 % (0-10); Hypochromasia 1+; Lymphocytes 15 % (20-55); Ovalocytes Slight; Platelet Estimate Adequate; Segmented Neutrophils 79 % (50-85); Total Cells Counted 100
[2019-12-24 05:45] LABS: Microcytosis Slight
[2019-12-24] MEDS: LINACLOTIDE 145 MCG CAPSULE PO SCH (08:01)
[2019-12-24] MEDS: PANTOPRAZOLE 40 MG VIAL IV SCH (08:01)
[2019-12-24] MEDS: ATORVASTATIN 40 MG TABLET PO SCH (08:02)
[2019-12-24] MEDS: amLODIPine 10 MG TABLET PO SCH (08:02)
[2019-12-24] MEDS: SERTRALINE 50 MG TABLET PO SCH (08:02)
[2019-12-24] MEDS: ASCORBIC ACID 500 MG TABLET PO SCH ×2 (08:02→21:49)
[2019-12-24] MEDS: METOPROLOL TARTRATE 25 MG TABLET PO SCH (08:03)
[2019-12-24] MEDS: HALOPERIDOL 5 MG/ML AMP IM PRN (14:20)
[2019-12-24] MEDS: CEFEPIME 1,000 MG in SODIUM CHLORIDE 0.9% 100 ML IV SCH (16:37)
[2019-12-24] MEDS: INSULIN NPH 100 UNIT/ML SUBCUT SCH (16:37)
[2019-12-24] MEDS: carvediloL 12.5 MG TABLET PO SCH (21:49)
[2019-12-24] MEDS: ENOXAPARIN 30 MG/0.3 ML SYRINGE SUBCUT SCH (21:49)
[2019-12-24] MEDS: GABAPENTIN 300 MG CAPSULE PO SCH (21:49)
[2019-12-25] MEDS: DEXMEDETOMIDINE 400 MCG in SODIUM CHLORIDE 0.9% 96 ML IV PRN ×2 (00:01→05:10)
[2019-12-25] MEDS: INSULIN REGULAR 100 UNIT/ML SUBCUT SCH ×5 (00:30→17:09)
[2019-12-25 03:46] LABS: ABG Base Excess -4.8 MMOL/L (-2.5-2.5); ABG HCO3 21.6 MMOL/L (20-26); ABG Oxygen Saturation 96.7 % (95-100); ABG PCO2 46.1 MM HG (35-48); ABG PH 7.288 (7.35-7.45); Allen Test Positive
[2019-12-25 04:52] LABS: Basophils % 0.2 % (0.0-0.8); Eosinophils # 0.2 10*3/uL (0.0-0.87); Eosinophils % 1.1 % (0.00-10.9); Hematocrit 25.3 VOL% (42.0-52.0); Hemoglobin 8.2 GM/DL (14.0-18.0); Immature Granulocytes % 7.2 %; Immature Granulocytes Absolute 1.47 #; Lymphocytes # 1.2 10*3/uL (1.4-4.0); Mean Corpuscular HGB Conc 32.4 GM/DL (32-36); Mean Corpuscular Volume 86.1 FL (87-102); Mean Platelet Volume 9.5 FL (9.6-12.0); Monocytes % 9.2 % (1.7-12.7); Neutrophils % 76.3 % (38.7-73.9); Platelet Count 362 T/CUMM (130-400); Red Blood Count 2.94 MC/CUMM (3.8-5.5); Red Cell Distribution Width 13.6 % (9.3-17.3); White Blood Count 20.4 T/CUMM (4-12)
[2019-12-25 05:10] LABS: Calcium 8.6 MG/DL (8.5-10.1); Osmolality,Calculated 281.7 MOS/KG (273-304)
[2019-12-25 05:48] LABS: Eosinophils 2 % (0-10); Lymphocytes 8 % (20-55); Metamyelocytes 1 %; Myelocytes 2 %; Segmented Neutrophils 79 % (50-85); Total Cells Counted 100
[2019-12-25 05:50] LABS: Hypochromasia 1+; Ovalocytes 2+
[2019-12-25 05:52] LABS: Microcytosis 1+; Platelet Estimate Normal
[2019-12-25] MEDS: INSULIN NPH 100 UNIT/ML SUBCUT SCH ×2 (08:06→17:09)
[2019-12-25] MEDS: ASCORBIC ACID 500 MG TABLET PO SCH ×2 (08:06→22:32)
[2019-12-25] MEDS: SERTRALINE 50 MG TABLET PO SCH (08:06)
[2019-12-25] MEDS: ATORVASTATIN 40 MG TABLET PO SCH (08:06)
[2019-12-25] MEDS: PANTOPRAZOLE 40 MG VIAL IV SCH (08:06)
[2019-12-25] MEDS: LINACLOTIDE 145 MCG CAPSULE PO SCH (08:07)
[2019-12-25] MEDS ORDERED: GENTAMICIN INJ 160 MG in SODIUM CHLORIDE 0.9% 100 ML IV PRN (08:44)
[2019-12-25] MEDS ORDERED: GENTAMICIN INJ 240 MG in SODIUM CHLORIDE 0.9% 100 ML IV ONE (10:00)
[2019-12-25] MEDS: amLODIPine 10 MG TABLET PO SCH (10:12)
[2019-12-25] MEDS: carvediloL 12.5 MG TABLET PO SCH ×2 (10:12→21:49)
[2019-12-25] MEDS: LEVOFLOXACIN INJ 500 MG in PREMIX 1 EACH IV SCH (14:26)
[2019-12-25] MEDS: ENOXAPARIN 30 MG/0.3 ML SYRINGE SUBCUT SCH (22:32)
[2019-12-25] MEDS: GABAPENTIN 300 MG CAPSULE PO SCH (22:32)
[2019-12-25] MEDS: SODIUM CHLORIDE 0.9% 1,000 ML IV SCH (22:32)
[2019-12-25 22:40] LABS: Basophils # 0.1 10*3/uL (0.0-0.2); Basophils % 0.3 % (0.0-0.8); Eosinophils # 0.2 10*3/uL (0.0-0.87); Eosinophils % 0.8 % (0.00-10.9); Hematocrit 26.6 VOL% (42.0-52.0); Hemoglobin 8.6 GM/DL (14.0-18.0); Immature Granulocytes % 5.8 %; Immature Granulocytes Absolute 1.33 #; Lymphocytes # 1.3 10*3/uL (1.4-4.0); Lymphocytes % 5.7 % (21.2-54.2); Mean Corpuscular HGB Conc 32.3 GM/DL (32-36); Mean Corpuscular Volume 85.8 FL (87-102); Mean Platelet Volume 9.3 FL (9.6-12.0); Monocytes % 7.4 % (1.7-12.7); Platelet Count 326 T/CUMM (130-400); Red Cell Distribution Width 13.8 % (9.3-17.3); White Blood Count 22.8 T/CUMM (4-12)
[2019-12-25 22:58] LABS: Albumin 2.7 G/DL (3.4-5.0); Bilirubin,Total 0.6 MG/DL (0.2-1.0); Calcium 9.1 MG/DL (8.5-10.1); Osmolality,Calculated 287.4 MOS/KG (273-304); Total Protein 7.1 G/DL (6.4-8.3)
[2019-12-25 22:59] LABS: PT Patient Result 10.8 SECS (9.8-11.9)
[2019-12-25 22:59] LABS: Elliptocytes Few; Eosinophils 1 % (0-10); Lymphocytes 5 % (20-55); Myelocytes 1 %; Platelet Estimate Adequate; Segmented Neutrophils 80 % (50-85); Total Cells Counted 100
[2019-12-26] MEDS: INSULIN REGULAR 100 UNIT/ML SUBCUT SCH ×4 (00:05→18:20)
[2019-12-26] MEDS ORDERED: SODIUM CHLORIDE 0.9% 250 ML IV ONE (01:18)
[2019-12-26] MEDS ORDERED: NOREPINEPHRINE 4 MG/4 ML VIAL IV ONE (04:36)
[2019-12-26] MEDS: NOREPINEPHRINE 8 MG in SODIUM CHLORIDE 0.9% 242 ML IV PRN (04:45)
[2019-12-26 05:52] LABS: Basophils # 0.1 10*3/uL (0.0-0.2); Basophils % 0.3 % (0.0-0.8); Eosinophils # 0.2 10*3/uL (0.0-0.87); Eosinophils % 0.6 % (0.00-10.9); Hematocrit 24.8 VOL% (42.0-52.0); Hemoglobin 8.2 GM/DL (14.0-18.0); Immature Granulocytes % 6.2 %; Immature Granulocytes Absolute 1.47 #; Lymphocytes # 1.1 10*3/uL (1.4-4.0); Lymphocytes % 4.8 % (21.2-54.2); Mean Corpuscular HGB Conc 33.1 GM/DL (32-36); Mean Corpuscular Volume 84.4 FL (87-102); Mean Platelet Volume 10.1 FL (9.6-12.0); Monocytes % 6.5 % (1.7-12.7); Neutrophils % 81.6 % (38.7-73.9); Platelet Count 312 T/CUMM (130-400); Red Blood Count 2.94 MC/CUMM (3.8-5.5); Red Cell Distribution Width 13.9 % (9.3-17.3); White Blood Count 23.6 T/CUMM (4-12)
[2019-12-26 06:11] LABS: Calcium 8.9 MG/DL (8.5-10.1); Osmolality,Calculated 285.4 MOS/KG (273-304)
[2019-12-26 06:16] LABS: Lymphocytes 1 % (20-55); Nucleated Red Blood Cells 1 (0-5); Platelet Estimate Normal; Polychromasia Few; Segmented Neutrophils 98 % (50-85); Total Cells Counted 100
[2019-12-26 06:21] LABS: Prealbumin 28.9 MG/DL (20-40)
[2019-12-26] MEDS: SERTRALINE 50 MG TABLET PO SCH (09:00)
[2019-12-26] MEDS: ATORVASTATIN 40 MG TABLET PO SCH (09:00)
[2019-12-26] MEDS: ASCORBIC ACID 500 MG TABLET PO SCH ×2 (09:00→21:42)
[2019-12-26] MEDS: LINACLOTIDE 145 MCG CAPSULE PO SCH (09:58)
[2019-12-26] MEDS: INSULIN NPH 100 UNIT/ML SUBCUT SCH ×2 (09:58→16:28)
[2019-12-26] MEDS: PANTOPRAZOLE 40 MG VIAL IV SCH (09:58)
[2019-12-26] MEDS: ENOXAPARIN 30 MG/0.3 ML SYRINGE SUBCUT SCH (21:41)
[2019-12-26] MEDS: GABAPENTIN 300 MG CAPSULE PO SCH (21:42)
[2019-12-26] MEDS: SODIUM CHLORIDE 0.9% 1,000 ML IV SCH (23:26)
[2019-12-27] MEDS: INSULIN REGULAR 100 UNIT/ML SUBCUT SCH ×4 (02:52→18:19)
[2019-12-27 06:28] LABS: Basophils # 0.1 10*3/uL (0.0-0.2); Basophils % 0.4 % (0.0-0.8); Eosinophils # 0.1 10*3/uL (0.0-0.87); Eosinophils % 0.4 % (0.00-10.9); Hematocrit 25.1 VOL% (42.0-52.0); Immature Granulocytes % 6.4 %; Immature Granulocytes Absolute 2.06 #; Lymphocytes # 1.5 10*3/uL (1.4-4.0); Lymphocytes % 4.5 % (21.2-54.2); Mean Corpuscular HGB Conc 31.9 GM/DL (32-36); Mean Corpuscular Volume 87.2 FL (87-102); Monocytes % 9.6 % (1.7-12.7); NRBC # 0.03 10*3/uL; Neutrophils % 78.7 % (38.7-73.9); Platelet Count 399 T/CUMM (130-400); Red Blood Count 2.88 MC/CUMM (3.8-5.5); Red Cell Distribution Width 14.2 % (9.3-17.3); White Blood Count 32.3 T/CUMM (4-12)
[2019-12-27 06:43] LABS: Albumin 2.4 G/DL (3.4-5.0); Bilirubin,Total 0.6 MG/DL (0.2-1.0); Calcium 8.6 MG/DL (8.5-10.1); Osmolality,Calculated 280.2 MOS/KG (273-304)
[2019-12-27 06:49] LABS: Band Neutrophils 1 % (0-10); Eosinophils 1 % (0-10); Hypochromasia 1+; Lymphocytes 6 % (20-55); Ovalocytes Slight; Platelet Estimate Adequate; Segmented Neutrophils 82 % (50-85); Total Cells Counted 100
[2019-12-27 06:50] LABS: Microcytosis Slight
[2019-12-27 08:04] LABS: ABG Base Excess -2.8 MMOL/L (-2.5-2.5); ABG HCO3 23.8 MMOL/L (20-26); ABG Oxygen Saturation 98.6 % (95-100); ABG PCO2 50.6 MM HG (35-48); ABG PO2 169.3 MM HG (80-95); ABG TCO2 25.3 MMOL/L (23-27); Allen Test Positive; Pt O2 Delivery Device Ventilator
[2019-12-27] MEDS: NOREPINEPHRINE 8 MG in SODIUM CHLORIDE 0.9% 242 ML IV PRN (08:24)
[2019-12-27] MEDS ORDERED: fentaNYL INJ 1,250 MCG in SODIUM CHLORIDE 0.9% 225 ML IV PRN (08:30)
[2019-12-27] MEDS ORDERED: MIDAZOLAM 100 MG in SODIUM CHLORIDE 0.9% 80 ML IV PRN (08:30)
[2019-12-27] MEDS: INSULIN NPH 100 UNIT/ML SUBCUT SCH ×2 (09:38→18:19)
[2019-12-27] MEDS: ASCORBIC ACID 500 MG TABLET PO SCH ×2 (09:38→21:10)
[2019-12-27] MEDS: PANTOPRAZOLE 40 MG VIAL IV SCH (09:38)
[2019-12-27] MEDS: ATORVASTATIN 40 MG TABLET PO SCH (09:39)
[2019-12-27] MEDS: PIPERACILLIN/TAZOBACTAM 3,375 MG in SODIUM CHLORIDE 0.9% 100 ML IV SCH ×2 (09:39→21:11)
[2019-12-27] MEDS: SERTRALINE 50 MG TABLET PO SCH (09:39)
[2019-12-27] MEDS: LINACLOTIDE 145 MCG CAPSULE PO SCH (09:40)
[2019-12-27] MEDS ORDERED: VANCOMYCIN INJ 1,000 MG in SODIUM CHLORIDE 0.9% 250 ML IV SCH (11:30)
[2019-12-27] MEDS ORDERED: GENTAMICIN INJ 160 MG in SODIUM CHLORIDE 0.9% 100 ML IV ONE (12:30)
[2019-12-27] MEDS ORDERED: VANCOMYCIN INJ 750 MG in SODIUM CHLORIDE 0.9% 250 ML IV ONE (12:30)
[2019-12-27] MEDS: GABAPENTIN 300 MG CAPSULE PO SCH (21:11)
[2019-12-27] MEDS: ENOXAPARIN 30 MG/0.3 ML SYRINGE SUBCUT SCH (21:11)
[2019-12-27] MEDS: SODIUM CHLORIDE 0.9% 1,000 ML IV SCH (23:24)
[2019-12-28] MEDS: INSULIN REGULAR 100 UNIT/ML SUBCUT SCH ×4 (00:01→17:35)
[2019-12-28] MEDS: NOREPINEPHRINE 8 MG in SODIUM CHLORIDE 0.9% 242 ML IV PRN (01:21)
[2019-12-28 04:36] LABS: Allen Test Positive; Pt O2 Delivery Device Ventilator
[2019-12-28 04:37] LABS: ABG Base Excess -1.2 MMOL/L (-2.5-2.5); ABG HCO3 24.5 MMOL/L (20-26); ABG PCO2 46.3 MM HG (35-48); ABG PH 7.341 (7.35-7.45); ABG PO2 253.9 MM HG (80-95); ABG TCO2 25.9 MMOL/L (23-27)
[2019-12-28 08:31] LABS: Basophils # 0.2 10*3/uL (0.0-0.2); Basophils % 0.6 % (0.0-0.8); Eosinophils # 0.4 10*3/uL (0.0-0.87); Eosinophils % 1.7 % (0.00-10.9); Hematocrit 24.2 VOL% (42.0-52.0); Hemoglobin 7.6 GM/DL (14.0-18.0); Immature Granulocytes % 7.8 %; Immature Granulocytes Absolute 1.86 #; Lymphocytes # 1.9 10*3/uL (1.4-4.0); Lymphocytes % 8.2 % (21.2-54.2); Mean Corpuscular HGB Conc 31.4 GM/DL (32-36); Mean Platelet Volume 9.5 FL (9.6-12.0); Monocytes % 8.7 % (1.7-12.7); NRBC # 0.02 10*3/uL; Platelet Count 341 T/CUMM (130-400); Red Blood Count 2.75 MC/CUMM (3.8-5.5); Red Cell Distribution Width 14.3 % (9.3-17.3); White Blood Count 23.8 T/CUMM (4-12)
[2019-12-28 08:50] LABS: Anisocytosis 1+; Atypical Lymphocytes Few; Eosinophils 3 % (0-10); Lymphocytes 13 % (20-55); Platelet Estimate Normal; Segmented Neutrophils 77 % (50-85); Total Cells Counted 100
[2019-12-28 08:53] LABS: Calcium 8.7 MG/DL (8.5-10.1); Osmolality,Calculated 290.2 MOS/KG (273-304)
[2019-12-28] MEDS: INSULIN NPH 100 UNIT/ML SUBCUT SCH ×2 (10:10→16:15)
[2019-12-28] MEDS: PANTOPRAZOLE 40 MG VIAL IV SCH (10:10)
[2019-12-28] MEDS: ATORVASTATIN 40 MG TABLET PO SCH (10:15)
[2019-12-28] MEDS: LINACLOTIDE 145 MCG CAPSULE PO SCH (10:15)
[2019-12-28] MEDS: SERTRALINE 50 MG TABLET PO SCH (10:15)
[2019-12-28] MEDS: PIPERACILLIN/TAZOBACTAM 3,375 MG in SODIUM CHLORIDE 0.9% 100 ML IV SCH ×2 (10:15→21:26)
[2019-12-28] MEDS: ASCORBIC ACID 500 MG TABLET PO SCH ×2 (10:15→21:27)
[2019-12-28] MEDS: SODIUM CHLORIDE 0.9% 1,000 ML IV SCH ×2 (16:15→23:04)
[2019-12-28] MEDS ORDERED: GENTAMICIN INJ 160 MG in SODIUM CHLORIDE 0.9% 100 ML IV ONE (17:00)
[2019-12-28] MEDS: GABAPENTIN 300 MG CAPSULE PO SCH (21:27)
[2019-12-28] MEDS: ENOXAPARIN 30 MG/0.3 ML SYRINGE SUBCUT SCH (21:27)
[2019-12-29] MEDS: INSULIN REGULAR 100 UNIT/ML SUBCUT SCH ×4 (00:03→18:21)
[2019-12-29 04:24] LABS: ABG Base Excess 1.8 MMOL/L (-2.5-2.5); ABG HCO3 26.9 MMOL/L (20-26); ABG Oxygen Saturation 98.6 % (95-100); ABG PCO2 45.1 MM HG (35-48); ABG PH 7.394 (7.35-7.45); ABG PO2 141.1 MM HG (80-95); ABG TCO2 28.3 MMOL/L (23-27); Allen Test Positive; Pt O2 Delivery Device Ventilator
[2019-12-29 04:55] LABS: Basophils # 0.1 10*3/uL (0.0-0.2); Basophils % 0.6 % (0.0-0.8); Eosinophils # 0.8 10*3/uL (0.0-0.87); Eosinophils % 3.7 % (0.00-10.9); Hematocrit 19.8 VOL% (42.0-52.0); Immature Granulocytes % 8.3 %; Immature Granulocytes Absolute 1.74 #; Lymphocytes # 1.7 10*3/uL (1.4-4.0); Lymphocytes % 7.9 % (21.2-54.2); Mean Corpuscular HGB Conc 31.3 GM/DL (32-36); Mean Corpuscular Volume 88.8 FL (87-102); Mean Platelet Volume 9.8 FL (9.6-12.0); Monocytes % 8.2 % (1.7-12.7); Neutrophils % 71.3 % (38.7-73.9); Platelet Count 364 T/CUMM (130-400); Red Blood Count 2.23 MC/CUMM (3.8-5.5); Red Cell Distribution Width 14.5 % (9.3-17.3)
[2019-12-29 04:59] LABS: Hemoglobin 6.2 GM/DL (14.0-18.0)
[2019-12-29] MEDS ORDERED: SODIUM CHLORIDE 0.9% 1,000 ML IV PRN ×2 (05:09→08:24)
[2019-12-29 05:24] LABS: Calcium 8.6 MG/DL (8.5-10.1); Osmolality,Calculated 288.7 MOS/KG (273-304)
[2019-12-29 05:39] LABS: Prealbumin 17.9 MG/DL (20-40)
[2019-12-29 05:50] LABS: Band Neutrophils 5 % (0-10); Eosinophils 4 % (0-10); Lymphocytes 17 % (20-55); Metamyelocytes 2 %; Platelet Estimate Normal; Segmented Neutrophils 66 % (50-85); Total Cells Counted 100
[2019-12-29 05:52] LABS: Anisocytosis Slight
[2019-12-29] MEDS: INSULIN NPH 100 UNIT/ML SUBCUT SCH ×2 (08:47→17:01)
[2019-12-29] MEDS: PIPERACILLIN/TAZOBACTAM 3,375 MG in SODIUM CHLORIDE 0.9% 100 ML IV SCH (09:21)
[2019-12-29] MEDS: LINACLOTIDE 145 MCG CAPSULE PO SCH (09:21)
[2019-12-29] MEDS: ASCORBIC ACID 500 MG TABLET PO SCH ×2 (09:22→20:41)
[2019-12-29] MEDS: ATORVASTATIN 40 MG TABLET PO SCH (09:22)
[2019-12-29] MEDS: SERTRALINE 50 MG TABLET PO SCH (09:23)
[2019-12-29] MEDS: PANTOPRAZOLE 40 MG VIAL IV SCH (09:24)
[2019-12-29] MEDS ORDERED: HEPARIN LOCK FLUSH 500 UNIT/5 ML SYRINGE IV ONE (10:01)
[2019-12-29] MEDS: hydrALAZINE 20 MG/1 ML VIAL IV PRN ×2 (10:41→21:10)
[2019-12-29 11:41] LABS: Hematocrit 23.2 VOL% (42.0-52.0); Hemoglobin 7.3 GM/DL (14.0-18.0)
[2019-12-29] MEDS: GABAPENTIN 300 MG CAPSULE PO SCH (20:41)
[2019-12-29] MEDS: ENOXAPARIN 30 MG/0.3 ML SYRINGE SUBCUT SCH (20:41)
[2019-12-30] MEDS: INSULIN REGULAR 100 UNIT/ML SUBCUT SCH ×4 (00:27→18:20)
[2019-12-30 02:45] LABS: ABG Base Excess -0.7 MMOL/L (-2.5-2.5); ABG HCO3 23.8 MMOL/L (20-26); ABG Oxygen Saturation 98.8 % (95-100); ABG PCO2 45.9 MM HG (35-48); ABG PH 7.346 (7.35-7.45); ABG TCO2 23.4 MMOL/L (23-27); Allen Test Positive; Pt O2 Delivery Device Ventilator
[2019-12-30 04:51] LABS: Basophils # 0.1 10*3/uL (0.0-0.2); Basophils % 0.8 % (0.0-0.8); Eosinophils # 0.9 10*3/uL (0.0-0.87); Eosinophils % 5.3 % (0.00-10.9); Hematocrit 22.2 VOL% (42.0-52.0); Hemoglobin 7.1 GM/DL (14.0-18.0); Immature Granulocytes % 9.2 %; Immature Granulocytes Absolute 1.63 #; Lymphocytes # 1.6 10*3/uL (1.4-4.0); Lymphocytes % 9.1 % (21.2-54.2); Mean Corpuscular Volume 86.4 FL (87-102); Mean Platelet Volume 9.7 FL (9.6-12.0); Monocytes % 8.7 % (1.7-12.7); NRBC # 0.02 10*3/uL; Neutrophils % 66.9 % (38.7-73.9); Platelet Count 376 T/CUMM (130-400); Red Blood Count 2.57 MC/CUMM (3.8-5.5); Red Cell Distribution Width 14.2 % (9.3-17.3); White Blood Count 17.7 T/CUMM (4-12)
[2019-12-30 04:59] LABS: Calcium 8.9 MG/DL (8.5-10.1)
[2019-12-30 05:57] LABS: Band Neutrophils 2 % (0-10); Eosinophils 9 % (0-10); Hypochromasia Slight; Lymphocytes 12 % (20-55); Microcytosis 1+; Platelet Estimate Normal; Segmented Neutrophils 69 % (50-85); Total Cells Counted 100
[2019-12-30 05:58] LABS: Polychromasia Slight
[2019-12-30] MEDS: ASCORBIC ACID 500 MG TABLET PO SCH ×2 (08:05→20:43)
[2019-12-30] MEDS: LINACLOTIDE 145 MCG CAPSULE PO SCH (08:05)
[2019-12-30] MEDS: SERTRALINE 50 MG TABLET PO SCH (08:05)
[2019-12-30] MEDS: ATORVASTATIN 40 MG TABLET PO SCH (08:05)
[2019-12-30] MEDS: PANTOPRAZOLE 40 MG VIAL IV SCH (08:16)
[2019-12-30] MEDS: INSULIN NPH 100 UNIT/ML SUBCUT SCH ×2 (08:17→17:16)
[2019-12-30] MEDS: hydrALAZINE 20 MG/1 ML VIAL IV PRN (14:08)
[2019-12-30] MEDS: GABAPENTIN 300 MG CAPSULE PO SCH (20:43)
[2019-12-30] MEDS: ENOXAPARIN 30 MG/0.3 ML SYRINGE SUBCUT SCH (20:43)
[2019-12-31] MEDS: INSULIN REGULAR 100 UNIT/ML SUBCUT SCH ×4 (00:54→17:57)
[2019-12-31 04:17] LABS: ABG Base Excess 2.7 MMOL/L (-2.5-2.5); ABG HCO3 26.8 MMOL/L (20-26); ABG Oxygen Saturation 99.3 % (95-100); ABG PCO2 41.2 MM HG (35-48); ABG PH 7.428 (7.35-7.45); Allen Test Positive; Pt O2 Delivery Device Ventilator
[2019-12-31] MEDS: hydrALAZINE 20 MG/1 ML VIAL IV PRN ×3 (04:34→19:40)
[2019-12-31 05:11] LABS: Basophils # 0.2 10*3/uL (0.0-0.2); Basophils % 1.1 % (0.0-0.8); Eosinophils # 0.9 10*3/uL (0.0-0.87); Eosinophils % 6.4 % (0.00-10.9); Hematocrit 26.5 VOL% (42.0-52.0); Hemoglobin 8.5 GM/DL (14.0-18.0); Immature Granulocytes % 12.4 %; Immature Granulocytes Absolute 1.78 #; Lymphocytes # 1.8 10*3/uL (1.4-4.0); Lymphocytes % 12.4 % (21.2-54.2); Mean Corpuscular HGB Conc 32.1 GM/DL (32-36); Mean Corpuscular Volume 87.5 FL (87-102); Monocytes % 11.4 % (1.7-12.7); NRBC # 0.02 10*3/uL; Neutrophils % 56.3 % (38.7-73.9); Platelet Count 364 T/CUMM (130-400); Red Blood Count 3.03 MC/CUMM (3.8-5.5); Red Cell Distribution Width 14.1 % (9.3-17.3); White Blood Count 14.3 T/CUMM (4-12)
[2019-12-31 05:26] LABS: Calcium 9.2 MG/DL (8.5-10.1); Osmolality,Calculated 281.2 MOS/KG (273-304)
[2019-12-31 06:13] LABS: Band Neutrophils 3 % (0-10); Eosinophils 9 % (0-10); Lymphocytes 12 % (20-55); Myelocytes 3 %; Segmented Neutrophils 60 % (50-85); Total Cells Counted 100
[2019-12-31 06:14] LABS: Anisocytosis 1+; Hypochromasia 1+; Platelet Estimate Normal
[2019-12-31] MEDS: INSULIN NPH 100 UNIT/ML SUBCUT SCH ×2 (06:45→16:10)
[2019-12-31] MEDS: LINACLOTIDE 145 MCG CAPSULE PO SCH (06:45)
[2019-12-31] MEDS: SERTRALINE 50 MG TABLET PO SCH (08:08)
[2019-12-31] MEDS: ASCORBIC ACID 500 MG TABLET PO SCH ×2 (08:08→20:36)
[2019-12-31] MEDS: ATORVASTATIN 40 MG TABLET PO SCH (08:08)
[2019-12-31] MEDS: PANTOPRAZOLE 40 MG VIAL IV SCH (08:12)
[2019-12-31] MEDS ORDERED: ALBUTEROL/IPRATROPIUM 3 ML NEB RESP TX SCH (09:00)
[2019-12-31] MEDS: ENOXAPARIN 30 MG/0.3 ML SYRINGE SUBCUT SCH (20:36)
[2020-01-01] MEDS: INSULIN REGULAR 100 UNIT/ML SUBCUT SCH ×4 (00:02→18:18)
[2020-01-01 04:33] LABS: Basophils # 0.1 10*3/uL (0.0-0.2); Basophils % 0.9 % (0.0-0.8); Eosinophils # 0.9 10*3/uL (0.0-0.87); Eosinophils % 5.7 % (0.00-10.9); Hematocrit 26.8 VOL% (42.0-52.0); Hemoglobin 8.6 GM/DL (14.0-18.0); Immature Granulocytes % 11.4 %; Immature Granulocytes Absolute 1.79 #; Lymphocytes # 2.3 10*3/uL (1.4-4.0); Lymphocytes % 14.6 % (21.2-54.2); Mean Corpuscular HGB Conc 32.1 GM/DL (32-36); Mean Corpuscular Volume 87.6 FL (87-102); Mean Platelet Volume 9.2 FL (9.6-12.0); Monocytes % 11.5 % (1.7-12.7); Neutrophils % 55.9 % (38.7-73.9); Platelet Count 344 T/CUMM (130-400); Red Blood Count 3.06 MC/CUMM (3.8-5.5); White Blood Count 15.7 T/CUMM (4-12)
[2020-01-01 04:36] LABS: ABG Base Excess 1.9 MMOL/L (-2.5-2.5); ABG HCO3 26.2 MMOL/L (20-26); ABG Oxygen Saturation 99.5 % (95-100); ABG PCO2 37.1 MM HG (35-48); ABG PH 7.451 (7.35-7.45); ABG TCO2 23.8 MMOL/L (23-27); Allen Test Positive; Pt O2 Delivery Device Ventilator
[2020-01-01 05:11] LABS: Calcium 9.5 MG/DL (8.5-10.1); Osmolality,Calculated 289.1 MOS/KG (273-304)
[2020-01-01 05:59] LABS: Band Neutrophils 5 % (0-10); Eosinophils 8 % (0-10); Lymphocytes 13 % (20-55); Microcytosis 1+; Myelocytes 2 %; Segmented Neutrophils 60 % (50-85); Total Cells Counted 100
[2020-01-01 06:00] LABS: Hypochromasia 1+
[2020-01-01 06:01] LABS: Platelet Estimate Normal; Polychromasia Slight
[2020-01-01] MEDS: LINACLOTIDE 145 MCG CAPSULE PO SCH (06:33)
[2020-01-01] MEDS: INSULIN NPH 100 UNIT/ML SUBCUT SCH ×2 (06:33→16:37)
[2020-01-01] MEDS: PANTOPRAZOLE 40 MG VIAL IV SCH (09:47)
[2020-01-01] MEDS: ATORVASTATIN 40 MG TABLET PO SCH (09:52)
[2020-01-01] MEDS: ASCORBIC ACID 500 MG TABLET PO SCH ×2 (09:52→20:19)
[2020-01-01] MEDS: SERTRALINE 50 MG TABLET PO SCH (09:53)
[2020-01-01] MEDS: POTASSIUM CHLORIDE RIDER 10 MEQ in PREMIX 1 EACH IV SCH ×2 (11:40→13:42)
[2020-01-01] MEDS: amLODIPine 5 MG TABLET PO SCH (12:56)
[2020-01-01] MEDS: hydrALAZINE 20 MG/1 ML VIAL IV PRN (13:44)
[2020-01-01] MEDS: ENOXAPARIN 30 MG/0.3 ML SYRINGE SUBCUT SCH (20:19)
[2020-01-02] MEDS: hydrALAZINE 20 MG/1 ML VIAL IV PRN ×4 (02:10→21:08)
[2020-01-02] MEDS: INSULIN REGULAR 100 UNIT/ML SUBCUT SCH ×5 (03:04→23:50)
[2020-01-02 04:42] LABS: Basophils # 0.1 10*3/uL (0.0-0.2); Basophils % 0.7 % (0.0-0.8); Eosinophils # 0.8 10*3/uL (0.0-0.87); Eosinophils % 4.7 % (0.00-10.9); Hematocrit 27.9 VOL% (42.0-52.0); Hemoglobin 8.9 GM/DL (14.0-18.0); Immature Granulocytes % 9.8 %; Immature Granulocytes Absolute 1.71 #; Lymphocytes # 2.1 10*3/uL (1.4-4.0); Lymphocytes % 12.2 % (21.2-54.2); Mean Corpuscular HGB Conc 31.9 GM/DL (32-36); Mean Corpuscular Volume 87.7 FL (87-102); Mean Platelet Volume 9.3 FL (9.6-12.0); Monocytes % 8.6 % (1.7-12.7); Platelet Count 335 T/CUMM (130-400); Red Blood Count 3.18 MC/CUMM (3.8-5.5); Red Cell Distribution Width 13.6 % (9.3-17.3); White Blood Count 17.4 T/CUMM (4-12)
[2020-01-02 04:49] LABS: ABG Base Excess -1.2 MMOL/L (-2.5-2.5); ABG HCO3 23.2 MMOL/L (20-26); ABG Oxygen Saturation 86.1 % (95-100); ABG PCO2 39.7 MM HG (35-48); ABG PH 7.384 (7.35-7.45); ABG PO2 54.9 MM HG (80-95); ABG TCO2 20.5 MMOL/L (23-27); Allen Test Positive; Pt O2 Delivery Device Ventilator
[2020-01-02 05:00] LABS: Band Neutrophils 2 % (0-10); Eosinophils 11 % (0-10); Lymphocytes 17 % (20-55); Segmented Neutrophils 65 % (50-85); Total Cells Counted 100
[2020-01-02 05:01] LABS: Hypochromasia 1+; Ovalocytes Slight; Platelet Estimate Adequate
[2020-01-02 05:02] LABS: Microcytosis 1+
[2020-01-02 05:08] LABS: Calcium 9.4 MG/DL (8.5-10.1); Osmolality,Calculated 292.2 MOS/KG (273-304)
[2020-01-02] MEDS: LINACLOTIDE 145 MCG CAPSULE PO SCH (06:42)
[2020-01-02] MEDS: INSULIN NPH 100 UNIT/ML SUBCUT SCH ×2 (06:42→17:39)
[2020-01-02] MEDS: PANTOPRAZOLE 40 MG VIAL IV SCH (08:51)
[2020-01-02] MEDS: ATORVASTATIN 40 MG TABLET PO SCH (08:51)
[2020-01-02] MEDS: amLODIPine 5 MG TABLET PO SCH (08:51)
[2020-01-02] MEDS: cefTRIAXone 1,000 MG in SYRINGE 1 EACH IV SCH (08:55)
[2020-01-02] MEDS ORDERED: ASCORBIC ACID 500 MG TABLET PO ONE (09:00)
[2020-01-02] MEDS: ASCORBIC ACID 500 MG TABLET PO SCH ×2 (09:56→21:07)
[2020-01-02] MEDS: ENOXAPARIN 30 MG/0.3 ML SYRINGE SUBCUT SCH (21:06)
[2020-01-03 03:40] LABS: ABG Base Excess 1.5 MMOL/L (-2.5-2.5); ABG HCO3 25.7 MMOL/L (20-26); ABG Oxygen Saturation 98.9 % (95-100); ABG PCO2 42.5 MM HG (35-48); ABG PH 7.402 (7.35-7.45); ABG TCO2 23.9 MMOL/L (23-27); Allen Test Positive; Pt O2 Delivery Device Ventilator
[2020-01-03] MEDS: hydrALAZINE 20 MG/1 ML VIAL IV PRN ×2 (03:57→08:33)
[2020-01-03] MEDS: INSULIN REGULAR 100 UNIT/ML SUBCUT SCH ×3 (06:04→17:56)
[2020-01-03 06:25] LABS: Basophils # 0.1 10*3/uL (0.0-0.2); Basophils % 0.6 % (0.0-0.8); Eosinophils # 0.7 10*3/uL (0.0-0.87); Eosinophils % 4.8 % (0.00-10.9); Hematocrit 29.4 VOL% (42.0-52.0); Hemoglobin 9.4 GM/DL (14.0-18.0); Immature Granulocytes % 8.9 %; Immature Granulocytes Absolute 1.33 #; Lymphocytes # 1.4 10*3/uL (1.4-4.0); Lymphocytes % 9.5 % (21.2-54.2); Mean Corpuscular Volume 87.8 FL (87-102); Mean Platelet Volume 9.4 FL (9.6-12.0); Monocytes % 6.3 % (1.7-12.7); Neutrophils % 69.9 % (38.7-73.9); Platelet Count 321 T/CUMM (130-400); Red Blood Count 3.35 MC/CUMM (3.8-5.5); Red Cell Distribution Width 13.7 % (9.3-17.3); White Blood Count 14.9 T/CUMM (4-12)
[2020-01-03 06:39] LABS: Calcium 9.8 MG/DL (8.5-10.1); Osmolality,Calculated 285.4 MOS/KG (273-304)
[2020-01-03 06:43] LABS: Eosinophils 3 % (0-10); Lymphocytes 10 % (20-55); Platelet Estimate Adequate; Segmented Neutrophils 78 % (50-85); Total Cells Counted 100
[2020-01-03 06:44] LABS: Hypochromasia 1+; Microcytosis 1+
[2020-01-03] MEDS: LINACLOTIDE 145 MCG CAPSULE PO SCH (08:32)
[2020-01-03] MEDS: INSULIN NPH 100 UNIT/ML SUBCUT SCH ×2 (08:34→16:35)
[2020-01-03] MEDS: ATORVASTATIN 40 MG TABLET PO SCH (08:43)
[2020-01-03] MEDS: PANTOPRAZOLE 40 MG VIAL IV SCH (08:43)
[2020-01-03] MEDS: amLODIPine 5 MG TABLET PO SCH (08:43)
[2020-01-03] MEDS: cefTRIAXone 1,000 MG in SYRINGE 1 EACH IV SCH (08:44)
[2020-01-03] MEDS: ASCORBIC ACID 500 MG TABLET PO SCH ×2 (08:46→21:08)
[2020-01-03] MEDS: ENOXAPARIN 30 MG/0.3 ML SYRINGE SUBCUT SCH (21:06)
[2020-01-04] MEDS: INSULIN REGULAR 100 UNIT/ML SUBCUT SCH ×3 (02:46→17:59)
[2020-01-04 04:45] LABS: ABG Base Excess -0.6 MMOL/L (-2.5-2.5); ABG HCO3 25.4 MMOL/L (20-26); ABG Oxygen Saturation 98.7 % (95-100); ABG PCO2 48.3 MM HG (35-48); ABG PH 7.339 (7.35-7.45); ABG PO2 159.6 MM HG (80-95); ABG TCO2 26.9 MMOL/L (23-27); Allen Test Positive; Pt O2 Delivery Device Ventilator
[2020-01-04 06:57] LABS: Calcium 9.8 MG/DL (8.5-10.1); Osmolality,Calculated 290.2 MOS/KG (273-304)
[2020-01-04] MEDS: PANTOPRAZOLE 40 MG VIAL IV SCH (09:00)
[2020-01-04] MEDS: ATORVASTATIN 40 MG TABLET PO SCH (09:00)
[2020-01-04] MEDS: ASCORBIC ACID 500 MG TABLET PO SCH ×2 (09:00→21:20)
[2020-01-04] MEDS: amLODIPine 5 MG TABLET PO SCH (09:00)
[2020-01-04] MEDS: INSULIN NPH 100 UNIT/ML SUBCUT SCH ×2 (09:00→18:02)
[2020-01-04] MEDS: cefTRIAXone 1,000 MG in SYRINGE 1 EACH IV SCH (11:35)
[2020-01-04] MEDS: LINACLOTIDE 145 MCG CAPSULE PO SCH (13:10)
[2020-01-04] MEDS: ENOXAPARIN 30 MG/0.3 ML SYRINGE SUBCUT SCH (21:20)
[2020-01-05] MEDS: INSULIN REGULAR 100 UNIT/ML SUBCUT SCH ×2 (01:23→14:04)
[2020-01-05] MEDS: hydrALAZINE 20 MG/1 ML VIAL IV PRN ×2 (02:43→19:13)
[2020-01-05 03:58] LABS: Calcium 9.5 MG/DL (8.5-10.1); Osmolality,Calculated 286.8 MOS/KG (273-304)
[2020-01-05 05:03] LABS: ABG Base Excess 0.7 MMOL/L (-2.5-2.5); ABG Oxygen Saturation 96.8 % (95-100); ABG PCO2 48.6 MM HG (35-48); ABG PH 7.351 (7.35-7.45); ABG PO2 89.3 MM HG (80-95); ABG TCO2 24.2 MMOL/L (23-27); Allen Test Positive; Pt O2 Delivery Device Ventilator
[2020-01-05] MEDS: INSULIN NPH 100 UNIT/ML SUBCUT SCH (08:17)
[2020-01-05] MEDS: LINACLOTIDE 145 MCG CAPSULE PO SCH (08:18)
[2020-01-05] MEDS: amLODIPine 5 MG TABLET PO SCH (10:00)
[2020-01-05] MEDS: ASCORBIC ACID 500 MG TABLET PO SCH ×2 (10:00→20:38)
[2020-01-05] MEDS: ATORVASTATIN 40 MG TABLET PO SCH (10:00)
[2020-01-05] MEDS: PANTOPRAZOLE 40 MG VIAL IV SCH (14:05)
[2020-01-05] MEDS: cefTRIAXone 1,000 MG in SYRINGE 1 EACH IV SCH (14:06)
[2020-01-05] MEDS: ENOXAPARIN 30 MG/0.3 ML SYRINGE SUBCUT SCH (20:38)
[2020-01-06] MEDS: INSULIN REGULAR 100 UNIT/ML SUBCUT SCH ×6 (01:02→18:31)
[2020-01-06 04:37] LABS: Allen Test Positive; Pt O2 Delivery Device BIPAP
[2020-01-06 04:38] LABS: ABG HCO3 25.4 MMOL/L (20-26); ABG Oxygen Saturation 98.4 % (95-100); ABG PO2 147.4 MM HG (80-95); ABG TCO2 26.8 MMOL/L (23-27)
[2020-01-06 05:56] LABS: Calcium 9.7 MG/DL (8.5-10.1)
[2020-01-06] MEDS: INSULIN NPH 100 UNIT/ML SUBCUT SCH ×2 (07:46→17:00)
[2020-01-06] MEDS: LINACLOTIDE 145 MCG CAPSULE PO SCH (07:47)
[2020-01-06] MEDS: ASCORBIC ACID 500 MG TABLET PO SCH ×2 (10:18→21:17)
[2020-01-06] MEDS: ATORVASTATIN 40 MG TABLET PO SCH (11:05)
[2020-01-06] MEDS: amLODIPine 5 MG TABLET PO SCH (11:05)
[2020-01-06] MEDS: cefTRIAXone 1,000 MG in SYRINGE 1 EACH IV SCH (11:06)
[2020-01-06] MEDS: PANTOPRAZOLE 40 MG VIAL IV SCH (11:06)
[2020-01-06] MEDS: ENOXAPARIN 30 MG/0.3 ML SYRINGE SUBCUT SCH (21:16)
[2020-01-07] MEDS: INSULIN NPH 100 UNIT/ML SUBCUT SCH ×3 (08:17→18:00)
[2020-01-07] MEDS: INSULIN REGULAR 100 UNIT/ML SUBCUT SCH ×4 (08:18→18:21)
[2020-01-07] MEDS: LINACLOTIDE 145 MCG CAPSULE PO SCH (08:19)
[2020-01-07] MEDS: ATORVASTATIN 40 MG TABLET PO SCH (08:33)
[2020-01-07] MEDS: amLODIPine 5 MG TABLET PO SCH (08:33)
[2020-01-07] MEDS: PANTOPRAZOLE 40 MG VIAL IV SCH (08:34)
[2020-01-07] MEDS: ASCORBIC ACID 500 MG TABLET PO SCH ×2 (08:37→21:11)
[2020-01-07] MEDS: cefTRIAXone 1,000 MG in SYRINGE 1 EACH IV SCH (08:48)
[2020-01-07 10:18] LABS: ABG Base Excess 0.9 MMOL/L (-2.5-2.5); ABG HCO3 25.2 MMOL/L (20-26); ABG Oxygen Saturation 98.5 % (95-100); ABG PCO2 46.8 MM HG (35-48); ABG PH 7.364 (7.35-7.45); ABG TCO2 24.3 MMOL/L (23-27)
[2020-01-07] MEDS: ENOXAPARIN 30 MG/0.3 ML SYRINGE SUBCUT SCH (21:10)
[2020-01-08] MEDS: INSULIN REGULAR 100 UNIT/ML SUBCUT SCH ×4 (00:01→18:21)
[2020-01-08 05:51] LABS: Basophils % 0.4 % (0.0-0.8); Eosinophils # 0.5 10*3/uL (0.0-0.87); Eosinophils % 4.2 % (0.00-10.9); Hematocrit 31.1 VOL% (42.0-52.0); Hemoglobin 9.8 GM/DL (14.0-18.0); Immature Granulocytes % 2.8 %; Lymphocytes # 1.4 10*3/uL (1.4-4.0); Lymphocytes % 13.3 % (21.2-54.2); Mean Corpuscular HGB Conc 31.5 GM/DL (32-36); Mean Corpuscular Volume 88.1 FL (87-102); Monocytes % 7.7 % (1.7-12.7); Neutrophils % 71.6 % (38.7-73.9); Platelet Count 289 T/CUMM (130-400); Red Blood Count 3.53 MC/CUMM (3.8-5.5); Red Cell Distribution Width 13.8 % (9.3-17.3); White Blood Count 10.6 T/CUMM (4-12)
[2020-01-08 06:04] LABS: Calcium 10.1 MG/DL (8.5-10.1); Osmolality,Calculated 296.5 MOS/KG (273-304)
[2020-01-08] MEDS: INSULIN NPH 100 UNIT/ML SUBCUT SCH ×2 (07:52→17:02)
[2020-01-08] MEDS: LINACLOTIDE 145 MCG CAPSULE PO SCH (07:53)
[2020-01-08] MEDS: ASCORBIC ACID 500 MG TABLET PO SCH ×2 (09:35→22:45)
[2020-01-08] MEDS: PANTOPRAZOLE 40 MG VIAL IV SCH (09:52)
[2020-01-08] MEDS: ATORVASTATIN 40 MG TABLET PO SCH (09:52)
[2020-01-08] MEDS: amLODIPine 5 MG TABLET PO SCH (09:52)
[2020-01-08] MEDS: cefTRIAXone 1,000 MG in SYRINGE 1 EACH IV SCH (09:53)
[2020-01-08] MEDS: hydrALAZINE 20 MG/1 ML VIAL IV PRN (11:52)
[2020-01-08] MEDS: ENOXAPARIN 30 MG/0.3 ML SYRINGE SUBCUT SCH (22:45)
[2020-01-09] MEDS: INSULIN REGULAR 100 UNIT/ML SUBCUT SCH ×4 (00:22→18:08)
[2020-01-09 06:45] LABS: Calcium 10.3 MG/DL (8.5-10.1); Osmolality,Calculated 301.4 MOS/KG (273-304)
[2020-01-09] MEDS: INSULIN NPH 100 UNIT/ML SUBCUT SCH ×2 (08:03→18:07)
[2020-01-09] MEDS: ASCORBIC ACID 500 MG TABLET PO SCH ×2 (09:25→21:20)
[2020-01-09] MEDS: LINACLOTIDE 145 MCG CAPSULE PO SCH (09:26)
[2020-01-09] MEDS: ATORVASTATIN 40 MG TABLET PO SCH (09:26)
[2020-01-09] MEDS: PANTOPRAZOLE 40 MG VIAL IV SCH (09:27)
[2020-01-09 10:45] LABS: Hepatitis B Surface Ag Quant < 0.10 Index; Hepatitis B Surface Ag Result Negative (Negative)
[2020-01-09] MEDS ORDERED: NOREPINEPHRINE 8 MG in SODIUM CHLORIDE 0.9% 242 ML IV PRN (11:20)
[2020-01-09] MEDS ORDERED: SODIUM CHLORIDE 0.9% 1,000 ML IV ONE (11:25)
[2020-01-09] MEDS ORDERED: NOREPINEPHRINE 4 MG/4 ML VIAL IV ONE (11:26)
[2020-01-09] MEDS ORDERED: SODIUM CHLORIDE 0.9% 1,000 ML IV PRN ×2 (11:39→11:47)
[2020-01-09 13:16] LABS: ABG Base Excess -1.7 MMOL/L (-2.5-2.5); ABG Oxygen Saturation 99.6 % (95-100); ABG PCO2 39.2 MM HG (35-48); ABG TCO2 21.1 MMOL/L (23-27)
[2020-01-09 13:52] LABS: Hematocrit 28.2 VOL% (42.0-52.0); Hemoglobin 8.4 GM/DL (14.0-18.0)
[2020-01-09] MEDS: amLODIPine 5 MG TABLET PO SCH (14:41)
[2020-01-09 17:01] LABS: ABG Base Excess -1.1 MMOL/L (-2.5-2.5); ABG HCO3 23.5 MMOL/L (20-26); ABG Oxygen Saturation 99.7 % (95-100); ABG PCO2 34.6 MM HG (35-48); ABG PH 7.425 (7.35-7.45); ABG TCO2 20.1 MMOL/L (23-27)
[2020-01-09] MEDS: PIPERACILLIN/TAZOBACTAM 3,375 MG in SODIUM CHLORIDE 0.9% 100 ML IV SCH (17:49)
[2020-01-09] MEDS: NOREPINEPHRINE 8 MG in SODIUM CHLORIDE 0.9% 242 ML IV PRN (18:09)
[2020-01-09 18:59] LABS: Hematocrit 31.2 VOL% (42.0-52.0); Hemoglobin 9.7 GM/DL (14.0-18.0)
[2020-01-09] MEDS: DEXAMETHASONE 4 MG/1 ML VIAL IV SCH (20:29)
[2020-01-09] MEDS: ENOXAPARIN 30 MG/0.3 ML SYRINGE SUBCUT SCH (21:21)
[2020-01-10] MEDS: INSULIN REGULAR 100 UNIT/ML SUBCUT SCH ×4 (00:07→18:52)
[2020-01-10 04:23] LABS: Allen Test Positive; Pt O2 Delivery Device Ventilator
[2020-01-10 04:24] LABS: ABG Base Excess -1.3 MMOL/L (-2.5-2.5); ABG HCO3 23.4 MMOL/L (20-26); ABG Oxygen Saturation 99.4 % (95-100); ABG PCO2 35.7 MM HG (35-48); ABG PH 7.414 (7.35-7.45); ABG TCO2 20.6 MMOL/L (23-27)
[2020-01-10] MEDS: PIPERACILLIN/TAZOBACTAM 3,375 MG in SODIUM CHLORIDE 0.9% 100 ML IV SCH ×2 (06:21→17:27)
[2020-01-10] MEDS: DEXAMETHASONE 4 MG/1 ML VIAL IV SCH ×2 (08:36→20:35)
[2020-01-10] MEDS: PANTOPRAZOLE 40 MG VIAL IV SCH (08:40)
[2020-01-10] MEDS: INSULIN NPH 100 UNIT/ML SUBCUT SCH ×2 (08:44→17:26)
[2020-01-10] MEDS: LINACLOTIDE 145 MCG CAPSULE PO SCH (08:46)
[2020-01-10] MEDS: ASCORBIC ACID 500 MG TABLET PO SCH ×2 (08:46→20:36)
[2020-01-10] MEDS: ATORVASTATIN 40 MG TABLET PO SCH (08:46)
[2020-01-10] MEDS: amLODIPine 5 MG TABLET PO SCH (11:23)
[2020-01-10] MEDS ORDERED: MANNITOL 12.5 GM/50 ML VIAL IV SCH (15:00)
[2020-01-10] MEDS: MANNITOL IV SCH (16:01)
[2020-01-10] MEDS: ENOXAPARIN 30 MG/0.3 ML SYRINGE SUBCUT SCH (20:35)
[2020-01-11] MEDS: INSULIN REGULAR 100 UNIT/ML SUBCUT SCH ×8 (00:45→23:50)
[2020-01-11] MEDS: MANNITOL IV SCH ×2 (03:00→15:43)
[2020-01-11 04:39] LABS: ABG Base Excess -7.2 MMOL/L (-2.5-2.5); ABG HCO3 18.6 MMOL/L (20-26); ABG PH 7.221 (7.35-7.45); ABG TCO2 19.2 MMOL/L (23-27); Allen Test Positive; Pt O2 Delivery Device Ventilator
[2020-01-11 04:47] LABS: Basophils % 0.2 % (0.0-0.8); Hematocrit 31.8 VOL% (42.0-52.0); Hemoglobin 9.8 GM/DL (14.0-18.0); Immature Granulocytes % 2.9 %; Lymphocytes # 1.1 10*3/uL (1.4-4.0); Lymphocytes % 6.6 % (21.2-54.2); Mean Corpuscular HGB Conc 30.8 GM/DL (32-36); Mean Corpuscular Volume 90.3 FL (87-102); Mean Platelet Volume 9.2 FL (9.6-12.0); Monocytes % 2.6 % (1.7-12.7); Neutrophils % 87.7 % (38.7-73.9); Platelet Count 281 T/CUMM (130-400); Red Blood Count 3.52 MC/CUMM (3.8-5.5); Red Cell Distribution Width 13.6 % (9.3-17.3); White Blood Count 17.3 T/CUMM (4-12)
[2020-01-11] MEDS: PIPERACILLIN/TAZOBACTAM 3,375 MG in SODIUM CHLORIDE 0.9% 100 ML IV SCH ×2 (04:47→17:36)
[2020-01-11 05:04] LABS: Calcium 9.9 MG/DL (8.5-10.1); Osmolality,Calculated 306.5 MOS/KG (273-304)
[2020-01-11] MEDS: LINACLOTIDE 145 MCG CAPSULE PO SCH (09:11)
[2020-01-11] MEDS: ATORVASTATIN 40 MG TABLET PO SCH (09:12)
[2020-01-11] MEDS: DEXAMETHASONE 4 MG/1 ML VIAL IV SCH ×2 (09:12→21:20)
[2020-01-11] MEDS: INSULIN LISPRO 100 UNIT/ML SUBCUT SCH ×3 (09:12→17:36)
[2020-01-11] MEDS: amLODIPine 5 MG TABLET PO SCH (09:13)
[2020-01-11] MEDS: ASCORBIC ACID 500 MG TABLET PO SCH ×2 (09:13→21:28)
[2020-01-11] MEDS: PANTOPRAZOLE 40 MG VIAL IV SCH (09:13)
[2020-01-11] MEDS: INSULIN NPH 100 UNIT/ML SUBCUT SCH (09:17)
[2020-01-11] MEDS: hydrALAZINE 20 MG/1 ML VIAL IV PRN (21:00)
[2020-01-11] MEDS ORDERED: INSULIN GLARGINE 100 UNIT/ML SUBCUT SCH (21:00)
[2020-01-11] MEDS: ENOXAPARIN 30 MG/0.3 ML SYRINGE SUBCUT SCH (21:28)
[2020-01-12] MEDS: MANNITOL IV SCH (03:33)
[2020-01-12 03:47] LABS: Basophils % 0.1 % (0.0-0.8); Hematocrit 31.4 VOL% (42.0-52.0); Immature Granulocytes Absolute 0.36 #; Lymphocytes # 0.8 10*3/uL (1.4-4.0); Lymphocytes % 4.4 % (21.2-54.2); Mean Corpuscular HGB Conc 31.8 GM/DL (32-36); Mean Platelet Volume 9.2 FL (9.6-12.0); Monocytes % 5.2 % (1.7-12.7); Neutrophils % 88.3 % (38.7-73.9); Platelet Count 281 T/CUMM (130-400); Red Blood Count 3.57 MC/CUMM (3.8-5.5); Red Cell Distribution Width 13.6 % (9.3-17.3); White Blood Count 17.9 T/CUMM (4-12)
[2020-01-12 04:08] LABS: Calcium 9.8 MG/DL (8.5-10.1); Osmolality,Calculated 300.7 MOS/KG (273-304)
[2020-01-12 05:31] LABS: Lymphocytes 5 % (20-55); Platelet Estimate Normal; Segmented Neutrophils 90 % (50-85); Total Cells Counted 100
[2020-01-12 05:32] LABS: Anisocytosis Slight; Macrocytosis Slight
[2020-01-12] MEDS: INSULIN REGULAR 100 UNIT/ML SUBCUT SCH ×9 (06:09→23:49)
[2020-01-12] MEDS: PIPERACILLIN/TAZOBACTAM 3,375 MG in SODIUM CHLORIDE 0.9% 100 ML IV SCH (06:09)
[2020-01-12] MEDS: LINACLOTIDE 145 MCG CAPSULE PO SCH (08:23)
[2020-01-12] MEDS: INSULIN LISPRO 100 UNIT/ML SUBCUT SCH ×3 (08:24→17:59)
[2020-01-12] MEDS: DEXAMETHASONE 4 MG/1 ML VIAL IV SCH ×2 (09:00→21:15)
[2020-01-12] MEDS: amLODIPine 5 MG TABLET PO SCH (09:00)
[2020-01-12] MEDS: PANTOPRAZOLE 40 MG VIAL IV SCH (09:00)
[2020-01-12] MEDS: ATORVASTATIN 40 MG TABLET PO SCH (09:00)
[2020-01-12] MEDS: ASCORBIC ACID 500 MG TABLET PO SCH ×2 (09:00→21:15)
[2020-01-12] MEDS: INSULIN GLARGINE 100 UNIT/ML SUBCUT SCH (21:15)
[2020-01-12] MEDS: ENOXAPARIN 30 MG/0.3 ML SYRINGE SUBCUT SCH (21:15)
[2020-01-13 03:10] LABS: ABG Base Excess -1.7 MMOL/L (-2.5-2.5); ABG Oxygen Saturation 99.1 % (95-100); ABG PCO2 34.7 MM HG (35-48); ABG PH 7.416 (7.35-7.45); ABG TCO2 20.2 MMOL/L (23-27); Allen Test Positive; Pt O2 Delivery Device Ventilator
[2020-01-13 04:25] LABS: Basophils # 0.1 10*3/uL (0.0-0.2); Basophils % 0.3 % (0.0-0.8); Hematocrit 29.3 VOL% (42.0-52.0); Hemoglobin 9.7 GM/DL (14.0-18.0); Immature Granulocytes % 4.6 %; Immature Granulocytes Absolute 1.01 #; Lymphocytes % 4.7 % (21.2-54.2); Mean Corpuscular HGB Conc 33.1 GM/DL (32-36); Mean Corpuscular Volume 84.7 FL (87-102); Mean Platelet Volume 10.1 FL (9.6-12.0); Monocytes % 9.8 % (1.7-12.7); Neutrophils % 80.6 % (38.7-73.9); Platelet Count 286 T/CUMM (130-400); Red Blood Count 3.46 MC/CUMM (3.8-5.5); White Blood Count 22.2 T/CUMM (4-12)
[2020-01-13 04:49] LABS: Calcium 9.7 MG/DL (8.5-10.1); Osmolality,Calculated 294.4 MOS/KG (273-304)
[2020-01-13 05:02] LABS: Band Neutrophils 3 % (0-10); Lymphocytes 2 % (20-55); Myelocytes 1 %; Platelet Estimate Adequate; Segmented Neutrophils 83 % (50-85); Total Cells Counted 100
[2020-01-13 05:03] LABS: Hypochromasia 1+; Ovalocytes Slight
[2020-01-13 05:04] LABS: Macrocytosis Slight
[2020-01-13] MEDS: INSULIN REGULAR 100 UNIT/ML SUBCUT SCH ×3 (06:08→18:00)
[2020-01-13] MEDS: DEXAMETHASONE 4 MG/1 ML VIAL IV SCH ×2 (06:12→18:07)
[2020-01-13] MEDS: LINACLOTIDE 145 MCG CAPSULE PO SCH (07:41)
[2020-01-13] MEDS: INSULIN LISPRO 100 UNIT/ML SUBCUT SCH ×3 (07:42→17:36)
[2020-01-13] MEDS: ATORVASTATIN 40 MG TABLET PO SCH (08:58)
[2020-01-13] MEDS: ASCORBIC ACID 500 MG TABLET PO SCH ×2 (08:59→21:00)
[2020-01-13] MEDS: PANTOPRAZOLE 40 MG VIAL IV SCH (08:59)
[2020-01-13] MEDS: amLODIPine 5 MG TABLET PO SCH (14:03)
[2020-01-13] MEDS: INSULIN GLARGINE 100 UNIT/ML SUBCUT SCH (21:00)
[2020-01-13] MEDS: ENOXAPARIN 30 MG/0.3 ML SYRINGE SUBCUT SCH (21:00)
[2020-01-14 00:59] VITALS: BP 135/89
== END 2020-01-13 13:35 | disposition expired | DRG 4 ==
LOC: N.ED 16:02 → N.EDINP 19:05 → SUATTDRO 19:05 → N.5E 20:13 → N.CC 12-05 21:27 → N.TELES 12-25 11:25 → N.CC 12-25 21:35 → N.ICU 12-27 17:41 → N.CVR 12-28 19:50 → N.CLINP 01-03 23:42
PROVIDERS: ADMIT Internal Medicine; ATTEND Family Medicine